=== PATIENT | male | born 1950 | race African-American/Black ===

== ENCOUNTER → 2016-05-17 | Outpatient (CLI) | payer BC, MEDICARE ==
[~2016-05-17] MED LIST: ALLP300T PO; AMLO10TA2 PO; AMLO10TA82 PO; ASP325TEC PO; ATEN25TA PO; ATOR80TA76 PO; BUDE10.2 IH; CANA100T PO; CARB15DR74 OU; DIAZIDE PO; DOXA2TAB2 PO; DXZS2T PO; FORM12CA IH; FURO-124 PO; FURO20TA4 PO; GABA-486 PO; GADOBUTROL 7.5 MMOL/7.5 ML (GADAVIST) VIAL IV ONE; GLIM2TAB PO; GLIM4TAB PO; GUAN2TAB12 PO; INSASP10V SQ; INSU100V5 SQ; LISI20TA PO; LISI40TA PO; LORA10TA7 PO; LOSA100T7 PO; LOSA50TA36 PO; MECL-106 PO; MTF500T PO; OMEP20CA12 PO; POTA-51 PO; POTA10CA43 PO; POTA10TA10 PO; POTA20TA8 PO; SIMV20TA3 PO; SIMV40TA4 PO; TRAM50TA2 PO; TRIA1TAB2 PO; ZOLP10TA PO; [UNRECOGNIZED DRUG - CODE] PO
--- OUTSIDE RECORDS SUMMARY | 2016-05-17 15:56 | XMS REPORT | Continuity of Care Document ---
Author Author [facility] Organization [facility] Address Unknown Phone Unavailable Care Team Providers Care Motor Boss Name Role Phone PCP Unavailable Source Comments Some departments are not documenting in the electronic medical record. If you do not see the information that you expected, contact Release of Information in the Health Information Management department at [phone] for further assistance in locating additional records.[facility] Active Allergies and Adverse Reactions Allergen Noted Date Severity Reactions Comments Flonase 04/04/2016 Low UNKNOWN Levaquin 04/04/2016 Low SEE COMMENTS Muscle weakness Lisinopril 04/04/2016 Low COUGH Metformin 04/04/2016 Low SEE COMMENTS Kidney failure Current Medications Prescription Sig. Disp. Refills Start End Date Status Date doxazosin (CARDURA) 4 mg Take 4 mg by mouth daily. Active tablet allopurinol (ZYLOPRIM) Take 300 mg by mouth Active 300 mg tablet daily. Take with food. aspirin 325 mg tablet Take 325 mg by mouth Active daily. Take with food. atorvastatin (LIPITOR) 80 Take 80 mg by mouth Active mg tablet daily. budesonide/formoterol Inhale 2 Puffs by mouth Active (SYMBICORT) 160/4.5 mcg into the lungs twice inhalation daily. CARBOXYMETHYLCELLULOSE Place into or around Active SODIUM (REFRESH OP) eye(s). GABAPENTIN PO Take by mouth. Active glimepiride (AMARYL) 4 mg Take 4 mg by mouth daily Active tablet with breakfast. glimepiride (AMARYL) 2 mg Take 2 mg by mouth daily Active tablet with breakfast. INSULIN ASPART (NOVOLOG Inject under the skin. Active SC) INSULIN DETEMIR (LEVEMIR Inject under the skin. Active SC) guanfacine(+) (TENEX) 2 Take by mouth. Active mg tablet loratadine 10 mg cap Take by mouth. Active omeprazole DR(+) Take 20 mg by mouth daily Active (PRILOSEC) 20 mg capsule before breakfast. losartan (COZAAR) 50 mg Take 50 mg by mouth Active tablet daily. zolpidem (AMBIEN) 10 mg Take 10 mg by mouth at Active tablet bedtime as needed for Sleep. traMADol (ULTRAM) 50 mg Take 50 mg by mouth every Active tablet 6 hours as needed for Pain. amitriptyline (ELAVIL) 10 Take 10 mg by mouth at Active mg tablet bedtime as needed. Triamcinolone Acetonide Apply topically to Active 0.05 % oint affected area. furosemide (LASIX) 20 mg Take 2 Tabs by mouth 180 Tab 2 04/04/20 Active tablet every morning. 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) Social History Tobacco Use Types Packs/Day Years Used Date Former Smoker Cigarettes 0.5 Alcohol Use Drinks/Week oz/Week Comments Yes Last Filed Vital Signs Vital Sign Reading Time Taken Blood Pressure 158/92 04/04/2016 2:52 PM PRODUCTION HONING MACHINE OPERATOR Pulse 71 04/04/2016 2:52 PM PRODUCTION HONING MACHINE OPERATOR Temperature - - Respiratory Rate - - Height 1.867 m (6' 1.5") 04/04/2016 2:50 PM PRODUCTION HONING MACHINE OPERATOR Weight 107.14 kg (236 lb 3.2 oz) 04/04/2016 2:50 PM PRODUCTION HONING MACHINE OPERATOR Body Mass Index 30.74 04/04/2016 2:50 PM PRODUCTION HONING MACHINE OPERATOR Oxygen Saturation - - Plan of Care Health Maintenance Due Date Last Done Comments Hepatitis C Screening 1950 Physical (Comprehensive) 1957 Exam Pertussis Vaccine 1961 Tetanus Vaccine 1967 Colorectal Cancer 2000 Screening Shingles Vaccine 2010 Prevnar/Pneumovax (#1) 2015 Influenza Vaccine 01/07/2016 Procedures from Last 3 Months Procedure Name Priority Date/Time Associated Diagnosis Comments AUDIOMETRY WITH Routine 04/04/2016 TYMPANOMETRY 12:00 AM PRODUCTION HONING MACHINE OPERATOR OTOACOUSTIC EMMISSIONS Routine 04/04/2016 12:00 AM PRODUCTION HONING MACHINE OPERATOR Results from Last 3 Months AUDIOMETRY WITH TYMPANOMETRY (04/04/2016)OTOACOUSTIC EMMISSIONS (04/04/2016)
--- NOTE | 2016-05-17 17:13 | Diagnostic Imaging Report ---
PROCEDURE: MR imaging of the brain with and without contrast. TECHNIQUE: Multiplanar, multisequence MR imaging of the brain was performed with and without contrast. INDICATION: Vertigo. Right hearing loss. 5 mL of Gadovist is administered intravenously. Half dose is given related to reduced GFR, with weight adjusted value of 55 obtained. FINDINGS: There is no diffusion restriction to suggest an acute infarct or other diffusion abnormality. The joe and white matter signal is generally unremarkable with minimal white matter T2 hyperintense signal seen in periventricular and small juxtacortical foci without significant mass effect or postcontrast enhancement compatible with mild chronic microvascular ischemic changes, commonly seen at the patient's age. There is no enhancing mass. There is no hydrocephalus. No extra-axial fluid collection is seen. The central vascular flow voids appear grossly unremarkable. The internal auditory canals and inner ear structures appear symmetric. The mastoid air cells demonstrate no definite abnormality. The pituitary gland is normal in size. No hypothalamic or pineal region mass. The orbits appear symmetric. Mild mucosal thickening along the middle and inferior turbinates and mild nasal septal deviation to the right is seen. IMPRESSION: No significant abnormality. Dictated by: Dictated on workstation # [id number]
== END ==
LOC: RAD 15:52
PROVIDERS: ATTEND Internal Medicine
DX: R42 Dizziness and giddiness (principal); H93.11 Tinnitus, right ear
CPT/HCPCS: 70553

== ENCOUNTER → 2016-05-23 | Outpatient (CLI) | payer BC, MEDICARE ==
[~2016-05-23] MED LIST changes: -GADOBUTROL 7.5 MMOL/7.5 ML (GADAVIST) VIAL IV ONE
--- OUTSIDE RECORDS SUMMARY | 2016-05-23 11:03 | XMS REPORT | Continuity of Care Document ---
Author Author [facility] Organization [facility] Address Unknown Phone Unavailable Care Team Providers Care Quality Control Lab Tech Name Role Phone PCP Unavailable Source Comments Some departments are not documenting in the electronic medical record. If you do not see the information that you expected, contact Release of Information in the Health Information Management department at [phone] for further assistance in locating additional records.[facility] Active Allergies and Adverse Reactions Allergen [...] Taken Blood Pressure 158/92 04/04/2016 2:52 PM HIGH SCHOOL MATH TEACHER Pulse 71 04/04/2016 2:52 PM HIGH SCHOOL MATH TEACHER Temperature - - Respiratory Rate - - Height 1.867 m (6' 1.5") 04/04/2016 2:50 PM HIGH SCHOOL MATH TEACHER Weight 107.14 kg (236 lb 3.2 oz) 04/04/2016 2:50 PM HIGH SCHOOL MATH TEACHER Body Mass Index 30.74 04/04/2016 2:50 PM HIGH SCHOOL MATH TEACHER Oxygen Saturation - - Plan of Care Health Maintenance Due Date Last Done Comments Hepatitis C Screening 1950 Physical (Comprehensive) 1957 Exam Pertussis Vaccine 1961 Tetanus Vaccine 1967 Colorectal Cancer 2000 Screening Shingles Vaccine 2010 Prevnar/Pneumovax (#1) 2015 Influenza Vaccine 01/07/2016 Procedures from Last 3 Months Procedure Name Priority Date/Time Associated Diagnosis Comments AUDIOMETRY WITH Routine 04/04/2016 TYMPANOMETRY 12:00 AM HIGH SCHOOL MATH TEACHER OTOACOUSTIC EMMISSIONS Routine 04/04/2016 12:00 AM HIGH SCHOOL MATH TEACHER Results from Last 3 Months AUDIOMETRY WITH TYMPANOMETRY (04/04/2016)OTOACOUSTIC EMMISSIONS (04/04/2016)
[2016-05-23 11:48] LABS: ALBUMIN 3.6 G/DL (3.2-4.5); BILIRUBIN,TOTAL 0.8 MG/DL (0.1-1.0); CALCIUM 8.9 MG/DL (8.5-10.1); CREATININE SERUM 1.8 MG/DL (0.60-1.30); MAGNESIUM 1.5 MG/DL (1.8-2.4); POTASSIUM 3.9 MMOL/L (3.6-5.0); TOTAL PROTEIN 6.8 G/DL (6.4-8.2)
[2016-05-23 12:08] LABS: THYROID STIMULATING HORMONE 0.49 UIU/ML (0.35-4.94)
== END ==
LOC: LAB 10:59
PROVIDERS: ATTEND Nurse Practitioner Family
DX: R53.83 Other fatigue (principal); I25.10 Atherosclerotic heart disease of native coronary artery without angina pectoris; I10 Essential (primary) hypertension; G47.33 Obstructive sleep apnea (adult) (pediatric); N18.3 Chronic kidney disease, stage 3 (moderate)
CPT/HCPCS: 36415; 80053; 83735; 84443

== ENCOUNTER → 2016-05-31 | Outpatient (CLI) | payer BC, MEDICARE ==
--- OUTSIDE RECORDS SUMMARY | 2016-05-31 08:30 | XMS REPORT | Continuity of Care Document ---
Author Author [facility] Organization [facility] Address Unknown Phone Unavailable Care Team Providers Care Grants Administrator Name Role Phone PCP Unavailable Source Comments Some departments are not documenting in the electronic medical record. If you do not see the information that you expected, contact Release of Information in the Health Information Management department at [phone] for further assistance in locating additional records.[facility] Active Allergies and Adverse Reactions Allergen [...] Taken Blood Pressure 158/92 04/04/2016 2:52 PM HUB INVENTORY SPECIALIST Pulse 71 04/04/2016 2:52 PM HUB INVENTORY SPECIALIST Temperature - - Respiratory Rate - - Height 1.867 m (6' 1.5") 04/04/2016 2:50 PM HUB INVENTORY SPECIALIST Weight 107.14 kg (236 lb 3.2 oz) 04/04/2016 2:50 PM HUB INVENTORY SPECIALIST Body Mass Index 30.74 04/04/2016 2:50 PM HUB INVENTORY SPECIALIST Oxygen Saturation - - Plan of Care Health Maintenance Due Date Last Done Comments Hepatitis C Screening 1950 Physical (Comprehensive) 1957 Exam Pertussis Vaccine 1961 Tetanus Vaccine 1967 Colorectal Cancer 2000 Screening Shingles Vaccine 2010 Prevnar/Pneumovax (#1) 2015 Influenza Vaccine 01/07/2016 Procedures from Last 3 Months Procedure Name Priority Date/Time Associated Diagnosis Comments AUDIOMETRY WITH Routine 04/04/2016 TYMPANOMETRY 12:00 AM HUB INVENTORY SPECIALIST OTOACOUSTIC EMMISSIONS Routine 04/04/2016 12:00 AM HUB INVENTORY SPECIALIST Results from Last 3 Months AUDIOMETRY WITH TYMPANOMETRY (04/04/2016)OTOACOUSTIC EMMISSIONS (04/04/2016)
[2016-05-31 08:58] LABS: CALCIUM 8.8 MG/DL (8.5-10.1); CREATININE SERUM 1.94 MG/DL (0.60-1.30); MAGNESIUM 1.7 MG/DL (1.8-2.4)
== END ==
LOC: LAB 08:27
PROVIDERS: ATTEND Nurse Practitioner Family
DX: E83.42 Hypomagnesemia (principal)
CPT/HCPCS: 36415; 80048; 83735

== ENCOUNTER → 2016-06-27 | Outpatient (CLI) | payer BC, MEDICARE ==
--- OUTSIDE RECORDS SUMMARY | 2016-06-27 10:17 | XMS REPORT | Continuity of Care Document ---
Author Author [facility] Organization [facility] Address Unknown Phone Unavailable Care Team Providers Care Center Consultant Name Role Phone PCP Unavailable Source Comments Some departments are not documenting in the electronic medical record. If you do not see the information that you expected, contact Release of Information in the Health Information Management department at [phone] for further assistance in locating additional records.[facility] Active Allergies and Adverse Reactions Allergen Noted [...] Recent Encounters Date Type Specialty Providers Description 06/10/2016 Telephone Otolaryngology Benjamin Giron MD Results - MRI results 06/03/2016 Ancillary Radiology Outpatient, Radiologist Diagnosis unknown Orders (Primary Dx) 05/17/2016 Hospital Radiology Encounter 04/04/2016 Office Visit Otolaryngology Benjamin Giron MD Meniere disease, right [H81.01] (Primary Dx) 04/04/2016 Clinical Otolaryngology Anabel Queen AUD 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 (Primary Dx) Social History Tobacco Use Types Packs/Day Years Used Date Former Smoker Cigarettes 0.5 Alcohol Use Drinks/Week oz/Week Comments Yes Last Filed Vital Signs Vital Sign Reading Time Taken Blood Pressure 158/92 04/04/2016 2:52 PM DIAMOND SORTER Pulse 71 04/04/2016 2:52 PM DIAMOND SORTER Temperature - - Respiratory Rate - - Height 1.867 m (6' 1.5") 04/04/2016 2:50 PM DIAMOND SORTER Weight 107.14 kg (236 lb 3.2 oz) 04/04/2016 2:50 PM DIAMOND SORTER Body Mass Index 30.74 04/04/2016 2:50 PM DIAMOND SORTER Oxygen Saturation - - Plan of Care Health Maintenance Due Date Last Done Comments Hepatitis C Screening 1950 Physical (Comprehensive) 1957 Exam Pertussis Vaccine 1961 Tetanus Vaccine 1967 Colorectal Cancer 2000 Screening Shingles Vaccine 2010 Prevnar/Pneumovax (#1) 2015 Influenza Vaccine 01/07/2016 Procedures from Last 3 Months Procedure Name Priority Date/Time Associated Diagnosis Comments AUDIOMETRY WITH Routine 04/04/2016 TYMPANOMETRY 12:00 AM DIAMOND SORTER OTOACOUSTIC EMMISSIONS Routine 04/04/2016 12:00 AM DIAMOND SORTER Results from Last 3 Months MRI HEAD EXTERNAL IMAGING (05/17/2016) Narrative This order has been auto finalized and does not contain a result. AUDIOMETRY WITH TYMPANOMETRY (04/04/2016)OTOACOUSTIC EMMISSIONS (04/04/2016)
[2016-06-27 10:48] LABS: CALCIUM 9.1 MG/DL (8.5-10.1); CREATININE SERUM 2.06 MG/DL (0.60-1.30); MAGNESIUM 1.6 MG/DL (1.8-2.4)
== END ==
LOC: LAB 10:13
PROVIDERS: ATTEND Nurse Practitioner Family
DX: I25.10 Atherosclerotic heart disease of native coronary artery without angina pectoris (principal); I12.9 Hypertensive chronic kidney disease with stage 1 through stage 4 chronic kidney disease, or unspecified chronic kidney disease; N18.3 Chronic kidney disease, stage 3 (moderate); G47.33 Obstructive sleep apnea (adult) (pediatric)
CPT/HCPCS: 36415; 80048; 83735

== ENCOUNTER 2016-10-03 14:49 | Emergency (ER) | payer BC, MEDICARE ==
[~2016-10-03] VITALS: Ht 185.4 cm; Wt 106.6 kg
--- NOTE | 2016-10-03 18:03 | Diagnostic Imaging Report ---
INDICATION: Right great toe pain started a few weeks ago and has gotten worse. COMPARISON STUDY: None. FINDINGS: Three views of the right great toe demonstrate normal ossification. No fracture, dislocation, or evidence of osteomyelitis is present. Arteriosclerosis is present. IMPRESSION: Arteriosclerosis is present with no acute findings. Dictated by: Dictated on workstation # [id number]
[2016-10-03] MEDS ORDERED: COLCHICINE 0.6 MG (COLCRYS) TABLET PO ONE (18:15)
--- NOTE | 2016-10-03 18:20 | ED Lower Extremity ---
General Chief Complaint: Lower Extremity Stated Complaint: R FOOT BIG TOE PAIN Nursing Triage Note: PT CO OF R GREAT TOE PAIN, STARTED A FEW WEEKS AGO AND HAS GOTTEN WORSE. PT RATES PAIN 12/15 Nursing Sepsis Screen: No Definite Risk Source: patient Exam Limitations: no limitations History of Present Illness Time seen by provider: 17:25 Initial Comments This 66-year-old gentleman presents to the emergency room with pain and numbness in the right great toe. He does have neuropathy and gout but states this presentation is different than problems he has had with either of those diagnoses in the past. He is on allopurinol for gout prevention and does take medications for neuropathy. He can identify no injury. He has no signs or symptoms of infection. Allergies and Home Medications Allergies Coded Allergies: levofloxacin (Verified Allergy, Unknown, 04/20/15) metformin (Verified Allergy, Unknown, 04/20/15) Home Medications Allopurinol 300 Mg Tab, 300 MG PO DAILY, (Reported) Aspirin 325 Mg Tabec, 325 MG PO HS, (Reported) Atorvastatin Calcium 80 Mg Tablet, 80 MG PO HS, (Reported) Budesonide/Formoterol Fumarate 10.2 Gm Hfa.aer.ad, 2 PUFF IH HS, (Reported) Carboxymethylcellulose Sodium 15 Ml Drops, 1 DROP OU QID PRN for DRY EYES, ( Reported) Doxazosin Mesylate 2 Mg Tablet, 2 MG PO BID PRN for BLOOD PRESSURE for 30 Days, Ref 0 Prescribed by: KAYLA OSEI on 07/16/15 1338 Furosemide 20 Mg Tablet, 20 MG PO DAILY, (Reported) Gabapentin 100 Mg Capsule, 100 MG PO HS, (Reported) Glimepiride 2 Mg Tablet, 4 MG PO EVERY EVENING, (Reported) TAKES 2 (2 MG) TABLETS Glimepiride 2 Mg Tablet, 2 MG PO DAILY, (Reported) Guanfacine Hcl 2 Mg Tablet, 4 MG PO HS, (Reported) TAKES 2 (2 MG) TABLETS Insulin Aspart 10 Unit/0.1 Ml Susp, 2-6 UNITS SQ UD, (Reported) PER (A) SLIDING SCALE Insulin Detemir 100 U/Ml Vial, 35 UNITS SQ BID, (Reported) Lisinopril 40 Mg Tablet, 40 MG PO DAILY, (Reported) Loratadine 10 Mg Tablet, 10 MG PO DAILY, (Reported) Meclizine HCl 25 Mg Tablet, 25 MG PO BID PRN for DIZZINESS, #20 Prescribed by: LINDA PEÑA on 11/05/15 5325 Omeprazole 20 Mg Capsule.dr, 20 MG PO BID, (Reported) Tramadol Hcl 50 Mg Tablet, 25 MG PO HS PRN for PAIN, (Reported) TAKES 1/2 OF A (50 MG) TABLET Zolpidem Tartrate 10 Mg Tablet, 10 MG PO HS PRN for SLEEP, (Reported) Constitutional: no symptoms reported EENTM: no symptoms reported Respiratory: no symptoms reported Cardiovascular: no symptoms reported Gastrointestinal: no symptoms reported Genitourinary: no symptoms reported Musculoskeletal: see HPI Skin: no symptoms reported Psychiatric/Neurological: See HPI Past Owjxicu-Vnbxva-Zlabdr Hx Patient Social History Alcohol Use: Denies Use Recreational Drug Use: No Smoking Status: Never a Smoker Former Smoker/When Quit: Oct 15, 1975 Recent Foreign Travel: No Contact w/Someone Who Travel: No Recent Infectious Disease Expo: No Recent Hopitalizations: No Immunizations Up To Date Tetanus Booster (TDap): Less than 5yrs Date of Pneumonia Vaccine: Feb 20, 2015 Date of Influenza Vaccine: Feb 20, 2015 Seasonal Allergies Seasonal Allergies: Yes Surgeries HX Surgeries: Yes (LEFT KNEE SCOPE X 2; RIGHT CARPAL TUNNEL;HERNIA REPAIR; HEART CATHX3) Surgeries: Abdominal, Cardiac, Coronary Stent, Orthopedic Respiratory Hx Respiratory Disorders: Yes Respiratory Disorders: Asthma Cardiovascular Hx Cardiac Disorders: Yes (STENT X1 , PR AT 41) Cardiac Disorders: Chronic Edema/Swelling, Coronary Artery Disease, Heart Attack, High Cholesterol, Hypertension Neurological Hx Neurological Disorders: Yes Neurological Disorders: Neuropathy Reproductive System Hx Reproductive Disorders: No Sexually Transmitted Disease: No HIV/AIDS: No Genitourinary Hx Genitourinary Disorders: Yes (STAGE 1 KIDNEY FAILURE) Genitourinary Disorders: Renal Failure Gastrointestinal Hx Gastrointestinal Disorders: Yes (hep A) Gastrointestinal Disorders: Gastroesophageal Reflux, Hepatitis Musculoskeletal Hx Musculoskeletal Disorders: Yes Musculoskeletal Disorders: Arthritis, Back Injury, Gout Endocrine Hx Endocrine Disorders: Yes Endocrine Disorders: Diabetes, Insulin dep HEENT HX ENT Disorders: Yes Loss of Vision: Denies Hearing Impairment: Hearing Aide Right Cancer Hx Cancer: No Psychosocial Hx Psychiatric Problems: No Integumentary HX Skin/Integumentary Disorder: No Blood Transfusions Hx Blood Disorders: No Adverse Reaction to a Blood Tr: No Family Medical History Significant Family History: No Pertinent Family Hx Family Medial History: Patient reports no known family medical history. Physical Exam Vital Signs Vital Sign - Last 12Hours 10/03/16 16:25 Temp 98.1 Pulse 96 Resp 18 B/P (MAP) 137/96 Pulse Ox 99 Capillary Refill : Less Than 3 Seconds General Appearance: WD/WN, no apparent distress HEENT: PERRL/EOMI, normal ENT inspection Cardiovascular: regular rate, rhythm, no edema, no murmur Respiratory: lungs clear, normal breath sounds, no respiratory distress Ankles: bilateral ankle non-tender, bilateral ankle normal inspection, bilateral ankle normal range of motion, bilateral ankle no evidence of injury Feet: left foot non-tender, bilateral foot normal inspection, bilateral foot normal range of motion, bilateral foot no evidence of injury, right foot other ( mild tenderness to the right proximal great toe without any evidence of inflammatory changes or swelling. Range of motion pain in the proximal toe joint) Neurologic/Tendon: normal sensation, normal motor functions, normal tendon functions Neurologic/Psychiatric: general machinist II-XII nml as tested, no motor/sensory deficits, alert, normal mood/affect, oriented x 3 Skin: normal color, warm/dry Progress/Results/Core Measures Results/Orders My Orders Orders - BRITTANY JACKSON MD Toe(S) (10/03/16 17:37) Colchicine Tablet (Colcrys Tablet) (10/03/16 18:15) Vital Signs/I&O Vital Sign - Last 12Hours 10/03/16 10/03/16 16:25 18:36 Temp 98.1 Pulse 96 60 Resp 18 14 B/P (MAP) 137/96 Pulse Ox 99 98 Blood Pressure Mean: 110 Progress Note : Progress Note x-ray was negative. Exam was unimpressive as there was normal sensation, capillary refill, pedal pulse, and range of motion. Low-grade gouty inflammation was considered. Patient was treated with colchicine and advised to follow a gout diet. See discharge instructions. Diagnostic Imaging Diagonstic Imaging: Xray Plain Films/CT/US/NM/MRI: other (right foot) Comments x-ray viewed by me and report reviewed. See report below: NAME: DOMINICK ARELLANO [facility] REC#: [id number] PT STATUS: REG ER : 1950 PHYSICIAN: BRITTANY JACKSON MD ADMIT DATE: 10/03/16/ER Signed Date of Exam: 10/03/16 TOE(S) INDICATION: Right great toe pain started a few weeks ago and has gotten worse. COMPARISON STUDY: None. FINDINGS: Three views of the right great toe demonstrate normal ossification. No fracture, dislocation, or evidence of osteomyelitis is present. Arteriosclerosis is present. IMPRESSION: Arteriosclerosis is present with no acute findings. Dictated by: Dictated on workstation # [id number] Dict: 10/03/169 Trans: 10/03/161805 Interpreted by: PUNEET NULL MD Electronically signed by: PUNEET NULL MD 10/03/161805 Departure Impression Impression: Primary Impression: Pain of right great toe Additional Impression: History of gout Disposition: HOME, SELF-CARE Condition: Improved Departure-Patient Inst. Decision time for Depature: 18:00 Referrals: ZULEMA FINN MD (PCP/Family) Primary Care Physician Patient Instructions: Gout (DC) Add. Discharge Instructions: Drink plenty of clear liquids. Follow a gout diet. If the dose of colchicine given in the ER does not improve your pain, please contact your doctor tomorrow. Your pain may be related to a manifestation of neuropathy. In the meantime, please continue to use Tylenol (acetaminophen) up to 1000 mg every 6 hours as needed. Add Ultram (Tramadol) for pain not controlled by Tylenol. All discharge instructions reviewed with patient and/or family. Voiced understanding. BRITTANY JACKSON MD October 03, 2016 18:20
[2016-10-03 18:36] VITALS: BP 125/83
== END 2016-10-03 18:38 | disposition home or self-care (01) ==
LOC: EDUNIT# 14:49 → ER 14:51
DX: M79.674 Pain in right toe(s) (principal); I10 Essential (primary) hypertension; E11.9 Type 2 diabetes mellitus without complications; I25.2 Old myocardial infarction; Z79.82 Long term (current) use of aspirin; Z79.899 Other long term (current) drug therapy; Z79.4 Long term (current) use of insulin; Z79.84 Long term (current) use of oral hypoglycemic drugs
CPT/HCPCS: 73660; 99283

== ENCOUNTER → 2016-12-02 | Outpatient (CLI) | payer BC, MEDICARE ==
[2016-12-02 09:43] LABS: CALCIUM 9.2 MG/DL (8.5-10.1); CREATININE SERUM 2.29 MG/DL (0.60-1.30)
== END ==
LOC: LAB 09:06
PROVIDERS: ATTEND Internal Medicine
DX: E11.9 Type 2 diabetes mellitus without complications (principal); I10 Essential (primary) hypertension
CPT/HCPCS: 36415; 80048; 83036

== ENCOUNTER 2017-01-12 08:40 | Emergency (ER) | payer OTHER, BC, MEDICARE ==
[~2017-01-12] VITALS: Ht 185.4 cm; Wt 106.6 kg
--- OUTSIDE RECORDS SUMMARY | 2017-01-12 08:47 | XMS REPORT | Clinical Summary ---
Author Author [facility] Organization [facility] Address Unknown Phone Unavailable Care Team Providers Care Chronic Specialist Name Role Phone PCP Unavailable Source Comments Some departments are not documenting in the electronic medical record. If you do not see the information that you expected, contact Release of Information in the Health Information Management department at [phone] for further assistance in locating additional records.[facility] Allergies Active Allergy Reactions Severity Noted Date Comments Fluticasone UNKNOWN Low 04/04/2016 Levofloxacin SEE COMMENTS Low 04/04/2016 Muscle weakness Lisinopril COUGH Low 04/04/2016 Metformin SEE COMMENTS Low 04/04/2016 Kidney failure Current Medications Prescription Sig. Disp. [...] by mouth 180 Tab 2 04/04/20 Active tabletIndications: every morning. 16 Meniere disease, right Active Problems Problem Noted Date Meniere disease 04/04/2016 Family History Medical History Relation Name Comments Diabetes Mother Heart Attack Mother Hypertension Mother Relation Name Status Comments Father Mother Social History Tobacco Use Types Packs/Day Years Used Date Former Smoker Cigarettes 0.5 Alcohol Use Drinks/Week oz/Week Comments Yes Sex Assigned at Date Recorded Not on file Last Filed Vital Signs Vital Sign Reading Time Taken Blood Pressure 158/92 04/04/2016 2:52 PM MINIATURE TRAIN DRIVER Pulse 71 04/04/2016 2:52 PM MINIATURE TRAIN DRIVER Temperature - - Respiratory Rate - - Oxygen Saturation - - Inhaled Oxygen - - Concentration Weight 107.1 kg (236 lb 3.2 oz) 04/04/2016 2:50 PM MINIATURE TRAIN DRIVER Height 186.7 cm (6' 1.5") 04/04/2016 2:50 PM MINIATURE TRAIN DRIVER Body Mass Index 30.74 04/04/2016 2:50 PM MINIATURE TRAIN DRIVER Plan of Treatment Health Maintenance Due Date Last Done Comments HEPATITIS C SCREENING 1950 PHYSICAL (COMPREHENSIVE) 1957 EXAM PERTUSSIS VACCINE 1961 TETANUS VACCINE 1967 COLORECTAL CANCER 2000 SCREENING SHINGLES VACCINE 2010 ABDOMINAL AORTIC ANEURYSM 2015 SCREENING PREVNAR/PNEUMOVAX (#1) 2015 INFLUENZA VACCINE 01/06/2017 Results Not on filefrom Last 3 Months
--- OUTSIDE RECORDS SUMMARY | 2017-01-12 08:49 | XMS REPORT ---
Author Author KEVIN ALFONSO 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 Role Phone SEBENJAMIN HAASYL Unavailable PROBLEMS Type Condition ICD9-CM Code [id number] Code Onset Dates Condition Status SNOMED Code Problem Rash and other nonspecific skin eruption 782.1 Active 909801379 Problem Unspecified disorder of kidney and ureter 593.9 Active 532098304 Problem Pain in joint, lower leg 719.46 Active 150013140 Problem Diabetic autonomic neuropathy associated with type 2 diabetes mellitus E11.43 Active 677587243 Problem Dermatophytosis of the body 110.5 Active 104488400 Problem Gout, unspecified 274.9 Active 86125167 Problem Essential hypertension, benign 401.1 Active 0494890 Problem Diabetes mellitus without mention of complication, type II or unspecified type, not stated as uncontrolled 250.00 Active 666441398 Problem Other and unspecified hyperlipidemia 272.4 Active 33534855 ALLERGIES Substance Reaction Event Type Date Status Metformin kidney Drug Allergy May, Active SOCIAL HISTORY No smoking Hx information available PLAN OF CARE Activity Details Follow Up prn Reason: VITAL SIGNS Height 73 in 2016-05-25 Weight 244 lbs 2016-05-25 Temperature 98 degrees Fahrenheit 2016-05-25 Heart Rate 80 bpm 2016-05-25 Respiratory Rate 16 2016-05-25 BMI 32.19 kg/m2 2016-05-25 Blood pressure systolic 128 mmHg 2016-05-25 Blood pressure diastolic 74 mmHg 2016-05-25 MEDICATIONS Medication Instructions Dosage Frequency Start Date End Date Duration Status Atenolol 25 mg take 1 tablet (25 mg) by oral route once daily Jan, Active Lasix 20 MG Orally three times per week 1 tablet Active Omeprazole 20 mg take 2 capsules by Oral route before a meal 1 time per day in am May, Active Zithromax Z-Max 250 MG Orally Once a day 2 tablets on the first day, then 1 tablet daily for 4 days 24h 5 day(s) Active amlodipine 10 mg take 1 tablet (10 mg) by oral route once daily May Active Simvastatin 40 mg take 0.5 tablet by Oral route 1 time per day in the evening May, Active NovoLog Flexpen 100 unit/mL inject 10 Units by Subcutaneous route before meals 3 times per day Jul, Active tramadol 50 mg take 1 tablet (50 mg) by oral route every 6 hours as needed PRN Jul, Active Aspirin 325 mg take 1 tablet (325 mg) by oral route once daily May, Active Gabapentin 100 MG TAKE THREE CAPSULES BY MOUTH THREE TIMES DAILY NEEDED 30 Active Glimepiride 4 MG TAKE ONE-HALF TABLET BY MOUTH IN THE MORNING AND ONE TABLET IN THE EVENING Active RESULTS No Results PROCEDURES Procedure Date Ordered Related Diagnosis Body Site [facility] VISIT ESTABLISHED PATIENT May 25, 2016 Office Visit, Est Pt., Level 4 May 25, 2016 IMMUNIZATIONS No Known Immunizations
--- NOTE | 2017-01-12 09:43 | ED Lower Extremity ---
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 He for the next several days felt some swelling in his left ankle and has been using extra strength Tylenol with marginal benefit. Last night he felt a knot on the back of his Achilles tendon. He denies any shortness of breath, nausea, hemoptysis, calf pain, redness swelling or knottiness in his calves or history of blood clots. He takes aspirin daily for history of a stent placed [address] Montilla. He has been consistent with taking the rest of his medications as well. He's never had an injury to his ankle before. He is still able to walk and stand on that foot albeit very tender to the Achilles tendon. Allergies and Home Medications Allergies Coded Allergies: levofloxacin (Verified Allergy, Unknown, 04/20/15) metformin (Verified Allergy, Unknown, 04/20/15) Home Medications Allopurinol 300 Mg Tab, 300 MG PO DAILY, (Reported) Aspirin 325 Mg Tabec, 325 MG PO HS, (Reported) Atorvastatin Calcium 80 Mg Tablet, 80 MG PO HS, (Reported) Budesonide/Formoterol Fumarate 10.2 Gm Hfa.aer.ad, 2 PUFF IH HS, (Reported) Carboxymethylcellulose Sodium 15 Ml Drops, 1 DROP OU QID PRN for DRY EYES, ( Reported) Doxazosin Mesylate 2 Mg Tablet, 2 MG PO BID PRN for BLOOD PRESSURE for 30 Days, Ref 0 Prescribed by: KAYLA OSEI on 07/16/15 1338 Furosemide 20 Mg Tablet, 20 MG PO DAILY, (Reported) Gabapentin 100 Mg Capsule, 100 MG PO HS, (Reported) Glimepiride 2 Mg Tablet, 4 MG PO EVERY EVENING, (Reported) TAKES 2 (2 MG) TABLETS Glimepiride 2 Mg Tablet, 2 MG PO DAILY, (Reported) Guanfacine Hcl 2 Mg Tablet, 4 MG PO HS, (Reported) TAKES 2 (2 MG) TABLETS Hydrocodone/Acetaminophen 1 Each Tablet, 1 EACH PO Q6H PRN for BREAKTHROUGH PAIN , #15 Ref 0 Prescribed by: GENESIS OLIVAREZ on 01/12/17 0944 Insulin Aspart 10 Unit/0.1 Ml Susp, 2-6 UNITS SQ UD, (Reported) PER (A) SLIDING SCALE Insulin Detemir 100 U/Ml Vial, 35 UNITS SQ BID, (Reported) Lisinopril 40 Mg Tablet, 40 MG PO DAILY, (Reported) Loratadine 10 Mg Tablet, 10 MG PO DAILY, (Reported) Meclizine HCl 25 Mg Tablet, 25 MG PO BID PRN for DIZZINESS, #20 Prescribed by: LINDA PEÑA on 11/05/15 1355 Omeprazole 20 Mg Capsule.dr, 20 MG PO BID, (Reported) Tramadol Hcl 50 Mg Tablet, 25 MG PO HS PRN for PAIN, (Reported) TAKES 1/2 OF A (50 MG) TABLET Zolpidem Tartrate 10 Mg Tablet, 10 MG PO HS PRN for SLEEP, (Reported) Constitutional: No chills, No diaphoresis, No fever, No malaise Respiratory: No cough, No short of breath Cardiovascular: No chest pain, No palpitations Gastrointestinal: No constipation, No nausea Genitourinary: No discharge, No dysuria Musculoskeletal: see HPI, No back pain, joint pain Skin: see HPI, No pruritus, No rash Psychiatric/Neurological: Denies Numbness, Denies Paresthesia Past Wdfsilt-Iarfdm-Wtwjfm Hx Patient Social History Alcohol Use: Occasionally Uses Recreational Drug Use: No Smoking Status: Never a Smoker Recent Foreign Travel: No Contact w/Someone Who Travel: No Recent Infectious Disease Expo: No Recent Hopitalizations: No Immunizations Up To Date Tetanus Booster (TDap): Less than 5yrs Date of Pneumonia Vaccine: Feb 20, 2015 Date of Influenza Vaccine: Feb 20, 2015 Seasonal Allergies Seasonal Allergies: Yes Surgeries History of Surgeries: Yes (LEFT KNEE SCOPE X 2; RIGHT CARPAL TUNNEL;HERNIA REPAIR; HEART CATHX3) Surgeries: Abdominal, Cardiac, Coronary Stent, Orthopedic Respiratory History of Respiratory Disorde: Yes Respiratory Disorders: Asthma Currently Using CPAP: No Currently Using BIPAP: No Cardiovascular History of Cardiac Disorders: Yes (STENT X1 , [place] AT 41) Cardiac Disorders: Chronic Edema/Swelling, Coronary Artery Disease, Heart Attack, High Cholesterol, Hypertension Neurological History of Neurological Disord: No Neurological Disorders: Neuropathy Reproductive System Hx Reproductive Disorders: No Sexually Transmitted Disease: No HIV/AIDS: No Genitourinary Genitourinary Disorders: Renal Failure Gastrointestinal History of Gastrointestinal Di: Yes (hep A) Gastrointestinal Disorders: Gastroesophageal Reflux, Hepatitis Musculoskeletal History of Musculoskeletal Dis: Yes Musculoskeletal Disorders: Arthritis, Back Injury, Gout Endocrine History of Endocrine Disorders: Yes Endocrine Disorders: Diabetes, Insulin dep HEENT Loss of Vision: Denies Hearing Impairment: Hearing Aide Right Cancer History of Cancer: No Psychosocial History of Psychiatric Problem: No Integumentary History of Skin or Integumenta: No Blood Transfusions History of Blood Disorders: No Adverse Reaction to a Blood Tr: No Family Medical History Significant Family History: No Pertinent Family Hx Family Medial History: Patient reports no known family medical history. Physical Exam Vital Signs Vital Sign - Last 12Hours 01/12/17 01/12/17 09:10 10:29 Temp 97.0 Pulse 49 Resp 18 B/P (MAP) 129/66 Pulse Ox 98 O2 Delivery Room Air Capillary Refill : Less Than 3 Seconds General Appearance: WD/WN, mild distress Cardiovascular: normal peripheral pulses, regular rate, rhythm Respiratory: chest non-tender, lungs clear Ankles: left ankle other (Hematoma 3 cm above the calcaneus on the calcaneal tendon with tenderness to direct palpation of the tendon and less so to the subcutaneous calcaneal tendon bursa. Prone calf Squeeze test does cause dorsiflexion.) Feet: bilateral foot non-tender, bilateral foot normal inspection, bilateral foot normal range of motion, bilateral foot no evidence of injury Neurologic/Tendon: normal sensation, normal motor functions, normal tendon functions, responds to pain Neurologic/Psychiatric: no motor/sensory deficits, alert, oriented x 3 Skin: normal color, warm/dry, other (1 x 2 cm hematoma on the posterior calcaneal tendon approximately 2-3 cm above the calcaneus) Progress/Results/Core Measures Results/Orders Vital Signs/I&O Vital Sign - Last 12Hours 01/12/17 01/12/17 09:10 10:29 Temp 97.0 Pulse 49 49 Resp 18 18 B/P (MAP) 129/66 Pulse Ox 98 98 O2 Delivery Room Air Blood Pressure Mean: 87 Progress Note : Time: 09:40 Progress Note Subtotal Achilles tendon tear so we will give him instructions how to tape his heel as well as do that here in the ER. Ice and Tylenol and hydrocodone and rest and elevation. NSAIDs are not a good option considering his stent and antiplatelet usage. He can follow-up with his primary care physician next week if he needs physical therapy. The bursa itself is mildly tender but the tendon is exquisitely tender and his positive calf squeeze test indicates he does still have a connection between his calf muscle group and the calcaneus. Departure Impression Impression: Primary Impression: Achilles tendon tear Qualified Codes: S86.012A - Strain of left Achilles tendon, initial encounter Disposition: HOME, SELF-CARE Condition: Stable Departure-Patient Inst. Decision time for Depature: 09:41 Referrals: ZULEMA FERREIRA MD (PCP/Family) Primary Care Physician Patient Instructions: Achilles Tendon Rupture (DC) Add. Discharge Instructions: Apply ice for 20 minutes directly over the Achilles tendon every 4-6 hours as needed for pain. You can also take 1000 mg of Tylenol every 8 hours. If this does not control your pain you should elevate the ankle above the level of your heart and wear the taping as directed. He may also use the hydrocodone however this can cause constipation as well as drowsiness so be careful and operating a vehicle or heavy machinery. If you have constipation I recommend a capful of MiraLAX in your 8 ounce beverage of choice at least daily. Plan to follow up with Dr. Ferreira next week if you're not seeing some improvement for further evaluation and management as well as possible referral to physical therapy. If you become unable to walk or you have a popping sensation or severe pain in that left Achilles tendon then you should represent to the ER. All discharge instructions reviewed with patient and/or family. Voiced understanding. Scripts Hydrocodone/Acetaminophen (Hydrocodon -Acetaminophen 5-325) 1 Each Tablet 1 EACH PO Q6H Y for BREAKTHROUGH PAIN, #15 TAB 0 Refills Prov: GENESIS OLIVAREZ 01/12/17 Work/School Note: Work Release Form Date Seen in the Emergency Department: Jan 12, 2017 Return to Work: Jan 12, 2017 Restrictions: Need Release from Doctor Other Restrictions Listed Below: Elevate ankle above heart. Avoid stairs and excessive walking. Copy Copies To 1: ZULEMA FERREIRA MD, TITUS J Jan 12, 2017 09:43
[2017-01-12] MEDS ORDERED: HYDR-3812 PO (09:44)
[2017-01-12 10:29] VITALS: BP 166/96
== END 2017-01-12 10:31 | disposition home or self-care (01) ==
LOC: EDUNIT# 08:40 → ER 08:42
DX: S86.012A Strain of left Achilles tendon, initial encounter (principal); K21.9 Gastro-esophageal reflux disease without esophagitis; M10.9 Gout, unspecified; E11.40 Type 2 diabetes mellitus with diabetic neuropathy, unspecified; I25.10 Atherosclerotic heart disease of native coronary artery without angina pectoris; I25.2 Old myocardial infarction; E78.00 Pure hypercholesterolemia, unspecified; I10 Essential (primary) hypertension; Z97.4 Presence of external hearing-aid; Z95.5 Presence of coronary angioplasty implant and graft; Z79.4 Long term (current) use of insulin; Z79.82 Long term (current) use of aspirin; Z86.2 Personal history of diseases of the blood and blood-forming organs and certain disorders involving the immune mechanism; Z87.19 Personal history of other diseases of the digestive system
CPT/HCPCS: 99283

== ENCOUNTER → 2017-02-20 | Outpatient (CLI) | payer BC, MEDICARE ==
[~2017-02-20] MED LIST changes: +HYDR-3812 PO
--- NOTE | 2017-02-20 12:32 | Diagnostic Imaging Report ---
PROCEDURE: CT urinary tract, rule out kidney stone. TECHNIQUE: Multiple contiguous axial images were obtained through the abdomen and pelvis without the use of intravenous contrast. INDICATION: Left-sided pain. FINDINGS: The lung bases nonacute. No radiopaque gallstone. The liver shows no focal abnormality. Spleen unremarkable. There is no adrenal mass. The unopacified pancreas is unremarkable. There are multiple right greater than left bilateral cortical and exophytic renal low density nodules presumed cystic although their evaluation limited by the absence of contrast. No opaque kidney stone and there is no hydronephrosis. The unopacified urinary bladder unremarkable. Incidental pelvic phleboliths noted. Some mild superficial induration of the subcutaneous fat at the midline abdomen at and below level of the umbilicus. No abdominal wall fluid collection. There is no appendicitis or diverticulitis. There is no bowel, biliary or urinary tract obstruction. No ascites, abscess, hematoma or other fluid collection. No pneumatosis or free gas. IMPRESSION: No opaque stone. No hydronephrosis. Exophytic and cortical renal nodules presumed cystic, although evaluation limited by the absence of contrast. No acute hepatobiliary abnormality. No ascites or fluid collection. Dictated by: Dictated on workstation # [id number]
== END ==
LOC: RAD 11:26
PROVIDERS: ATTEND Internal Medicine
DX: N28.9 Disorder of kidney and ureter, unspecified (principal)
CPT/HCPCS: 74176

== ENCOUNTER → 2017-04-28 | Outpatient (CLI) | payer BC, MEDICARE ==
--- NOTE | 2017-04-28 11:11 | Diagnostic Imaging Report ---
Gastric emptying scan. INDICATION: Abdominal pain and fullness. EVALUATE FOR GASTROPERISIS/DMII. After the oral administration of 1.1 mCi of technetium 99m sulfur colloid mixed in a meal , images over the stomach with counts performed. FINDINGS: Gastric emptying is 43% at one hour , 71% at 2 hours, 79%, at 3 hours, and 90% at 4 hours. IMPRESSION: Gastric emptying within normal limits. Dictated by: Dictated on workstation # [id number]
== END ==
LOC: CARD 06:34
PROVIDERS: ATTEND Internal Medicine
DX: R11.0 Nausea (principal); E11.9 Type 2 diabetes mellitus without complications
CPT/HCPCS: 78264

== ENCOUNTER 2018-01-23 20:27 | Outpatient (CLI) | payer BC, MEDICARE ==
[~2018-01-23 20:27] MED LIST changes: +ACHD5005 PO; -AMLO10TA2 PO; +AMLO10TA6 PO; +CARB15DR OU; -CARB15DR74 OU; -HYDR-3812 PO; -LOSA50TA36 PO; +LOSA50TA7 PO
== END 2018-01-24 05:40 | disposition home or self-care (01) ==
LOC: SLEEP 20:27
PROVIDERS: ATTEND Nurse Practitioner Family
DX: G47.33 Obstructive sleep apnea (adult) (pediatric) (principal); R09.02 Hypoxemia; J30.9 Allergic rhinitis, unspecified
CPT/HCPCS: 95810

== ENCOUNTER → 2018-02-03 | Outpatient (CLI) | payer BC, MEDICARE ==
[2018-02-03 11:45] LABS: BASOPHILS # (AUTO) 0.1 10^3/uL (0.0-0.1); BASOPHILS % (AUTO) 1 % (0-10); EOSINOPHILS # (AUTO) 0.6 10^3/uL (0.0-0.3); EOSINOPHILS % (AUTO) 8 % (0-10); HEMATOCRIT 43 % (40-54); HEMOGLOBIN 14.4 G/DL (13.3-17.7); LYMPHOCYTES # (AUTO) 3.1 X 10^3 (1.0-4.0); LYMPHOCYTES % (AUTO) 39 % (12-44); MEAN CORPUSCULAR HEMOGLOBIN 30 PG (25-34); MEAN CORPUSCULAR HGB CONC 33 G/DL (32-36); MEAN CORPUSCULAR VOLUME 90 FL (80-99); MEAN PLATELET VOLUME 10.6 FL (7.4-10.4); MONOCYTES # (AUTO) 0.8 X 10^3 (0.0-1.0); MONOCYTES % (AUTO) 10 % (0-12); NEUTROPHILS # (AUTO) 3.3 X 10^3 (1.8-7.8); NEUTROPHILS % (AUTO) 42 % (42-75); PLATELET COUNT 248 10^3/uL (130-400); RED BLOOD COUNT 4.82 10^6/uL (4.35-5.85); RED CELL DISTRIBUTION WIDTH 14.1 % (10.0-14.5)
[2018-02-03 12:05] LABS: ALBUMIN 4.1 GM/DL (3.2-4.5); BILIRUBIN,TOTAL 0.6 MG/DL (0.1-1.0); CALCIUM 9.5 MG/DL (8.5-10.1); CREATININE SERUM 2.26 MG/DL (0.60-1.30); POTASSIUM 4.2 MMOL/L (3.6-5.0); TOTAL PROTEIN 8.1 GM/DL (6.4-8.2); URIC ACID 4.9 MG/DL (2.6-7.2)
--- NOTE | 2018-02-03 12:11 | Diagnostic Imaging Report ---
EXAMINATION: Left elbow radiographs, three views. COMPARISON: None. HISTORY: 67-year-old male, pain and swelling of the left elbow. FINDINGS: There is no large elbow joint effusion. The elbow is not dislocated. There is some irregularity in the region of the coronoid process on the lateral view. This is age indeterminate. There is no otherwise identified potential fracture. IMPRESSION: 1. Mild irregularity of the coronoid process of uncertain exact age. 2. No otherwise identified potential fracture. 3. No elbow joint effusion. 4. No elbow dislocation. Dictated by: Dictated on workstation # [id number]
== END ==
LOC: LAB 11:24
PROVIDERS: ATTEND Nurse Practitioner Family
DX: M25.522 Pain in left elbow (principal); M25.422 Effusion, left elbow
CPT/HCPCS: 36415; 73080; 80053; 84550; 85025

== ENCOUNTER → 2018-03-06 | Outpatient (CLI) | payer BC, MEDICARE ==
[~2018-03-06] MED LIST changes: +CATHETER FLUSH 10 ML SYR IV PRN; +REGADENOSON 0.4 MG/5 ML SYR (LEXISCAN) IV ONE
[2018-03-06 09:58] VITALS: BP 198/104
[2018-03-06 09:59] VITALS: BP 188/97
--- NOTE | 2018-03-06 21:26 | STRESS TEST ---
DATE OF SERVICE: 03/06/2018 RESTING AND POST REGADENOSON TECHNETIUM-99M TETROFOSMIN SPECT CT IMAGING ORDERING PHYSICIAN: Meghna Ricks APRN PRIMARY PHYSICIAN: Dr. Ferreira. CLINICAL DIAGNOSIS: Chest discomfort. Baseline images were carried out after injection of 10.28 mCi of technetium-99m Tetrofosmin. This was followed by 0.4 mg regadenoson and 28.4 mCi of technetium-99m Tetrofosmin for stress imaging. The electrocardiogram showed sinus rhythm with an early repolarization pattern. This did not change significantly with regadenoson infusion. The patient did not report any significant symptoms. Review of images at rest and following stress does not indicate any distinct perfusion defects consistent with significant myocardial ischemia or infarction. Gated images show normal global left ventricular systolic function, normal regional wall motion. Left ventricular ejection fraction is calculated to be 53%. Left ventricular end diastolic volume 91 mL. TID is absent (1.05). CONCLUSIONS: 1. No evidence of significant myocardial ischemia or infarction on this study. 2. Normal regional wall motion. 3. Normal global left ventricular systolic function with a calculated ejection fraction of 53%. Job ID: [id number] DocumentID: [id number] Dictated Date: 03/06/2018 18:44:23 Graduate Teacher Education Date: 03/06/2018 21:25:53 Dictated By: BHUMI SHARMA MD, MA, FACP, FACC, MTDD
== END ==
LOC: CARD 08:35
PROVIDERS: ATTEND Nurse Practitioner Family
DX: R07.9 Chest pain, unspecified (principal); R06.09 Other forms of dyspnea; I12.9 Hypertensive chronic kidney disease with stage 1 through stage 4 chronic kidney disease, or unspecified chronic kidney disease; N18.3 Chronic kidney disease, stage 3 (moderate); I25.10 Atherosclerotic heart disease of native coronary artery without angina pectoris; G47.33 Obstructive sleep apnea (adult) (pediatric)
CPT/HCPCS: 78452; 93017

== ENCOUNTER → 2018-03-28 | Outpatient (CLI) | payer BC, MEDICARE ==
[~2018-03-28] MED LIST changes: -CATHETER FLUSH 10 ML SYR IV PRN; -REGADENOSON 0.4 MG/5 ML SYR (LEXISCAN) IV ONE
== END ==
LOC: CARD 08:23
PROVIDERS: ATTEND Nurse Practitioner Family
DX: R07.9 Chest pain, unspecified (principal); R06.09 Other forms of dyspnea; I12.9 Hypertensive chronic kidney disease with stage 1 through stage 4 chronic kidney disease, or unspecified chronic kidney disease; N18.3 Chronic kidney disease, stage 3 (moderate); I25.10 Atherosclerotic heart disease of native coronary artery without angina pectoris; G47.33 Obstructive sleep apnea (adult) (pediatric)
CPT/HCPCS: 93306

== ENCOUNTER 2018-09-19 19:58 | Outpatient (CLI) | payer BC, MEDICARE ==
[~2018-09-19 19:58] MED LIST changes: -AMLO10TA6 PO; +AMLO10TA7 PO; +LOSA50TA63 PO; -LOSA50TA7 PO
== END 2018-09-20 04:55 | disposition home or self-care (01) ==
LOC: SLEEP 19:58
PROVIDERS: ATTEND Nurse Practitioner Family
DX: G47.33 Obstructive sleep apnea (adult) (pediatric) (principal); I10 Essential (primary) hypertension; I25.10 Atherosclerotic heart disease of native coronary artery without angina pectoris; E66.8 Other obesity; J45.998 Other asthma; R05 Cough; G47.50 Parasomnia, unspecified; Z78.9 Other specified health status; J30.9 Allergic rhinitis, unspecified
CPT/HCPCS: 95811

== ENCOUNTER → 2018-10-12 | Outpatient (CLI) | payer BC, MEDICARE ==
[~2018-10-12] MED LIST changes: +RT-ALBUTEROL SULF 2.5 MG/3 ML PRE-MIX VIAL INH ONE; +RT-ALBUTEROL SULF 2.5 MG/3 ML PRE-MIX VIAL ONE
== END ==
LOC: RT 11:33
PROVIDERS: ATTEND Nurse Practitioner Family
DX: I10 Essential (primary) hypertension (principal); I25.10 Atherosclerotic heart disease of native coronary artery without angina pectoris; J30.9 Allergic rhinitis, unspecified; R05 Cough; E66.8 Other obesity; J45.998 Other asthma; G47.50 Parasomnia, unspecified; Z78.9 Other specified health status
CPT/HCPCS: 94060; 94726; 94729

== ENCOUNTER 2019-10-12 21:00 | Emergency (ER) | payer BC, MEDICARE ==
[~2019-10-12] VITALS: Ht 182 cm; Wt 107.0 kg
[~2019-10-12 21:00] MED LIST changes: -GLIM2TAB PO; +GLIM2TAB4 PO; -MECL-106 PO; +MECL-149 PO; -RT-ALBUTEROL SULF 2.5 MG/3 ML PRE-MIX VIAL INH ONE; -RT-ALBUTEROL SULF 2.5 MG/3 ML PRE-MIX VIAL ONE; +SIMV40TA25 PO; -SIMV40TA4 PO
--- NOTE | 2019-10-12 21:39 | ED Cardiac General ---
History of Present Illness General Chief Complaint: General Problems/Pain Stated Complaint: HIGH BP Nursing Triage Note: Pt reports recent adjustment of BP meds by PCP with c/o HTN and feelings of unsteadiness at home. Denies CP, SOB. Source: patient Exam Limitations: no limitations History of Present Illness Date Seen by Provider: Oct 12, 2019 Time Seen by Provider: 21:22 Initial Comments Patient presents ER by private conveyance from home with chief complaint last 3 or 4 days he's had elevated hypertension above 200 systolic yesterday. 2 weeks ago he was taken off of the guanfacine by Dr. Ferreira his primary care doctor and he treats that to his high blood pressure. He restarted the medication per Dr. Ferreira on Monday, yesterday. He is not having any chest pain but he has some increased bloating and pressure around his abdomen. No increased swelling around his feet. He says been urinating frequently and uses Lasix. Have a hi story of heart failure and AR with stents by Dr. Galvez. He has a history of diabetes, early-onset familial history, hypertension, hypercholesterolemia. He denies chest pain or shortness of breath. His concern today with his high blood pressure. He is on prazosin, Lasix, spironolactone. He takes aspirin 325 mg a day and took one this morning. He has nitroglycerin but has not used it. Echocardiogram [address] Galvez: EF of 65-70% with concentric hypertrophy and mildly increased wall thickness. Grade 1 diastolic dysfunction. History of hypertensive crisis with chest pressure, GERD, CK 80 stage III, diabetes type 2, CAD. Intolerance totherapy related to frequent, nonproductive cough. Intolerance to Cardizem as a cause bradycardia in the past. Was on Norvasc for hypertension in the past. History of elevated liver enzymes of undetermined etiology. Allergies and Home Medications Allergies Coded Allergies: levofloxacin (Verified Allergy, Unknown, 04/20/15) metformin (Verified Allergy, Unknown, 04/20/15) Home Medications Allopurinol 300 Mg Tab, 300 MG PO DAILY, (Reported) Aspirin 325 Mg Tabec, 325 MG PO HS, (Reported) Atorvastatin Calcium 80 Mg Tablet, 80 MG PO HS, (Reported) Budesonide/Formoterol Fumarate 10.2 Gm Hfa.aer.ad, 2 PUFF IH HS, (Reported) Carboxymethylcellulose Sodium 15 Ml Drops, 1 DROP OU QID PRN for DRY EYES, (Reported) Doxazosin Mesylate 2 Mg Tablet, 2 MG PO BID PRN for BLOOD PRESSURE Prescribed by: KAYLA OSEI on 07/16/15 1338 Furosemide 20 Mg Tablet, 20 MG PO DAILY, (Reported) Gabapentin 100 Mg Capsule, 100 MG PO HS, (Reported) Glimepiride 2 Mg Tablet, 4 MG PO EVERY EVENING, (Reported) TAKES 2 (2 MG) TABLETS Glimepiride 2 Mg Tablet, 2 MG PO DAILY, (Reported) Guanfacine Hcl 2 Mg Tablet, 4 MG PO HS, (Reported) TAKES 2 (2 MG) TABLETS Hydrocodone Bit/Acetaminophen 1 Each Tablet, 1 EACH PO Q6H PRN for BREAKTHROUGH PAIN Prescribed by: GENESIS OLIVAREZ on 01/12/17 0944 Insulin Aspart 10 Unit/0.1 Ml Susp, 2-6 UNITS SQ UD, (Reported) PER (A) SLIDING SCALE Insulin Detemir 100 U/Ml Vial, 35 UNITS SQ BID, (Reported) Lisinopril 40 Mg Tablet, 40 MG PO DAILY, (Reported) Loratadine 10 Mg Tablet, 10 MG PO DAILY, (Reported) Meclizine HCl 25 Mg Tablet, 25 MG PO BID PRN for DIZZINESS Prescribed by: LINDA PEÑA on 11/05/15 1355 Omeprazole 20 Mg Capsule.dr, 20 MG PO BID, (Reported) Tramadol Hcl 50 Mg Tablet, 25 MG PO HS PRN for PAIN, (Reported) TAKES 1/2 OF A (50 MG) TABLET Zolpidem Tartrate 10 Mg Tablet, 10 MG PO HS PRN for SLEEP, (Reported) Patient Home Medication List Home Medication List Reviewed: Yes Review of Systems Review of Systems Constitutional: No chills, No weakness EENTM: No Blurred Vision, No Double Vision, No Eye Pain Respiratory: Denies Cough, Denies Shortness of Air Cardiovascular: Denies Chest Pain, Denies Edema Gastrointestinal: Denies Constipated, Denies Diarrhea, Denies Nausea Genitourinary: Denies Burning, Denies Discharge, Denies Drainage, Denies Pain Musculoskeletal: No back pain, No joint pain Psychiatric/Neurological: Denies Anxiety, Denies Depressed All Other Systems Reviewed Negative Unless Noted: Yes Past Zfuiecd-Kwwpvh-Weymhn Hx Patient Social History Alcohol Use: Denies Use Recreational Drug Use: No Smoking Status: Never a Smoker 2nd Hand Smoke Exposure: No Recent Foreign Travel: No Contact w/Someone Who Travel: No Recent Infectious Disease Expo: No Recent Hopitalizations: No Physical Abuse: No Sexual Abuse: No Mistreated: No Fear: No Immunizations Up To Date Tetanus Booster (TDap): Less than 5yrs Date of Pneumonia Vaccine: Feb 20, 2015 Date of Influenza Vaccine: Feb 20, 2015 Seasonal Allergies Seasonal Allergies: Yes Past Medical History Surgeries: Yes (LEFT KNEE SCOPE X 2; RIGHT CARPAL TUNNEL;HERNIA REPAIR; HEART CATHX3) Abdominal, Cardiac, Coronary Stent, Orthopedic Respiratory: Yes Asthma Currently Using CPAP: No Currently Using BIPAP: No Cardiac: Yes (STENT X1 , AR AT 41) Chronic Edema/Swelling, Coronary Artery Disease, Heart Attack, High Cholesterol, Hypertension Neurological: Yes Neuropathy Reproductive Disorders: No Sexually Transmitted Disease: No HIV/AIDS: No Renal Failure Gastrointestinal: Yes (hep A) Gastroesophageal Reflux, Hepatitis Musculoskeletal: Yes Arthritis, Back Injury, Gout Endocrine: Yes Diabetes, Insulin dep Loss of Vision: Denies Hearing Impairment: Hearing Aide Right Cancer: No Psychosocial: No Integumentary: No Blood Disorders: No Adverse Reaction/Blood Tranf: No Family Medical History Patient reports no known family medical history. No Pertinent Family Hx Physical Exam Vital Signs Vital Signs - First Documented 10/12/19 21:24 Temp 37.0 Pulse 75 Resp 16 B/P (MAP) 208/106 (140) Pulse Ox 95 O2 Delivery Room Air Capillary Refill : Less Than 3 Seconds Height, Weight, BMI Height: 6'1.00" Weight: 235lbs. 6.0oz. 106.451948uq; 32.00 BMI Method:Stated General Appearance: No Apparent Distress, WD/WN HEENT: PERRL/EOMI, Pharynx Normal, Moist Mucous Membranes Neck: Full Range of Motion, Normal Inspection Respiratory: Chest Non Tender, Lungs Clear, Normal Breath Sounds, No Accessory Muscle Use, No Respiratory Distress Cardiovascular: Regular Rate, Rhythm, No Edema, Normal Peripheral Pulses Gastrointestinal: Normal Bowel Sounds, No Organomegaly, Non Tender, Soft, Diste nded Extremity: Normal Capillary Refill, Normal Inspection, No Pedal Edema Neurologic/Psychiatric: Alert, Oriented x3, No Motor/Sensory Deficits Skin: Normal Color, Warm/Dry Progress/Results/Core Measures Results/Orders Lab Results Laboratory Tests Test 10/12/19 22:30 10/13/19 00:21 Range/Units White Blood Count 8.3 4.3-11.0 10^3/uL Red Blood Count 4.96 4.35-5.85 10^6/uL Hemoglobin 14.7 13.3-17.7 G/DL Hematocrit 45 40-54 % Mean Corpuscular Volume 91 80-99 FL Mean Corpuscular Hemoglobin 30 25-34 PG Mean Corpuscular Hemoglobin Concent 33 32-36 G/DL Red Cell Distribution Width 14.2 10.0-14.5 % Platelet Count 207 130-400 10^3/uL Mean Platelet Volume 11.0 H 7.4-10.4 FL Neutrophils (%) (Auto) 43 42-75 % Lymphocytes (%) (Auto) 35 12-44 % Monocytes (%) (Auto) 10 0-12 % Eosinophils (%) (Auto) 12 H 0-10 % Basophils (%) (Auto) 1 0-10 % Neutrophils # (Auto) 3.6 1.8-7.8 X 10^3 Lymphocytes # (Auto) 2.9 1.0-4.0 X 10^3 Monocytes # (Auto) 0.8 0.0-1.0 X 10^3 Eosinophils # (Auto) 1.0 H 0.0-0.3 10^3/uL Basophils # (Auto) 0.1 0.0-0.1 10^3/uL Sodium Level 137 135-145 MMOL/L Potassium Level 4.4 3.6-5.0 MMOL/L Chloride Level 105 98-107 MMOL/L Carbon Dioxide Level 20 L 21-32 MMOL/L Anion Gap 12 5-14 MMOL/L Blood Urea Nitrogen 36 H 7-18 MG/DL Creatinine 2.92 H 0.60-1.30 MG/DL Estimat Glomerular Filtration Rate 26 BUN/Creatinine Ratio 12 Glucose Level 248 H 70-105 MG/DL Calcium Level 8.9 8.5-10.1 MG/DL Corrected Calcium 8.8 8.5-10.1 MG/DL Total Bilirubin 0.5 0.1-1.0 MG/DL Aspartate Amino Transf (AST/SGOT) 26 5-34 U/L Alanine Aminotransferase (ALT/SGPT) 18 0-55 U/L Alkaline Phosphatase 107 40-136 U/L Troponin I 0.084 H 0.081 H <0.028 NG/ML B-Type Natriuretic Peptide < 10.0 <100.0 PG/ML Total Protein 7.8 6.4-8.2 GM/DL Albumin 4.1 3.2-4.5 GM/DL My Orders Orders - GENESIS OLIVAREZ Continuous Ekg Monitoring (10/12/19 21:07) Ekg Tracing (10/12/19 21:07) Cbc With Automated Diff (10/12/19 21:31) Comprehensive Metabolic Panel (10/12/19 21:31) BNP (10/12/19 21:31) Troponin I (10/12/19 21:31) Aspirin Chewable Tablet (Baby Aspirin Ch (10/12/19 21:45) Chest 1 View, Ap/Pa Only (10/12/19 21:31) Amlodipine Tablet (Norvasc Tablet) (10/12/19 22:15) Clonidine Tablet (Catapres Tablet) (10/12/19 23:45) Troponin I (10/13/19 00:30) Medications Given in ED Current Medications Medications Dose Ordered Sig/Rufino Route Start Time Stop Time Status Last Admin Dose Admin Amlodipine Besylate 10 mg ONCE ONCE PO 10/12/19 22:15 10/12/19 22:16 DC 10/12/19 22:28 10 MG Aspirin 162 mg ONCE ONCE PO 10/12/19 21:45 10/12/19 21:46 DC 10/12/19 22:28 162 MG Clonidine HCl 0.1 mg ONCE ONCE PO 10/12/19 23:45 10/12/19 23:46 DC 10/13/19 00:08 0.1 MG Vital Signs/I&O 10/12/19 10/12/19 10/12/19 10/13/19 21:24 22:55 23:51 00:25 Temp 37.0 Pulse 75 101 74 60 Resp 16 16 16 16 B/P (MAP) 208/106 (140) 171/81 (111) 190/90 (123) 164/75 (104) Pulse Ox 95 99 99 99 O2 Delivery Room Air Room Air Room Air Room Air 10/13/19 00:57 Pulse 65 Resp 18 B/P (MAP) 155/78 Pulse Ox 99 O2 Delivery Room Air Blood Pressure Mean: 140 Progress Progress Note #1: Time: 21:38 Progress Note Patient presents with hypertension, abdominal distention and generally feeling tired. Hypertensive urgency with or without heart failure acutely. Plan to give him some aspirin and monitor his blood pressure for a couple rounds if it stays high we will give him an antihypertensive. Progress Note #2: Time: 22:13 Progress Note The blood pressures a little better at 185/88 with rest. Patient's symptoms have not changed. The plan to give him Norvasc 10 mg. He tolerated this in the past and said he had no reaction and does not recall why they took him off of it. Progress Note #3: Time: 01:03 Progress Note The patient has no chest pain worse other symptoms. He sleeping and resting comfortably. His blood pressures 158/85 after the clonidine. Plan to put him out on it twice a day. Follow-up with Dr. Galvez in the clinic next week for following. Initial ECG Impression Date: Oct 12, 2019 Initial ECG Impression Time: 21:16 Initial ECG Rate: 73 Initial ECG Rhythm: Normal Sinus Initial ECG Intervals: Normal Initial ECG Impression: Normal, Nonspecific Changes Comment Normal sinus rhythm without clinically relevant ST elevation or depression. LVH. Diagnostic Imaging Diagonstic Imaging: Xray Plain Films/CT/US/NM/MRI: chest (1v) Comments [facility], [place] NAME: DOMINICK ARELLANO Jay [facility] REC#: [id number] PT STATUS: REG ER : 1950 PHYSICIAN: GENESIS OLIVAREZ MD ADMIT DATE: 10/12/19/ER Signed Date of Exam:10/12/19 CHEST 1 VIEW, AP/PA ONLY INDICATION: Hypertension. Unsteadiness. EXAMINATION: Upright portable chest was obtained. FINDINGS: Normal heart size and vascularity. The lungs are clear. There is no effusion or pneumothorax. There is no bony abnormality. IMPRESSION: Normal chest with no change from 07/14/2015. Dictated by: Dictated on workstation # [id number] Dict: 10/12/192154 Trans: 10/12/192157 [facility] [id number] Interpreted by: CLAUDIA BERNAL MD Electronically signed by: CLAUDIA BERNAL MD 10/12/192157 Reviewed: Reviewed by Me Consults : Consulting Physician: BIPIN MORENO MD Consults Notes Discussed the case with Dr. Moreno at 26/07/39. He agrees with repeating a delta troponin and if it's not arising then he would attributed to the CKD. Patient had no anginal symptoms since she's been here. He recommends clonidine 0.1 mg now. Departure Impression Primary Impression: Hypertensive urgency Disposition: HOME, SELF-CARE Condition: Stable Departure-Patient Inst. Decision time for Depature: 01:05 Referrals: ZULEMA FERREIRA MD (PCP/Family) Primary Care Physician Patient Instructions: High Blood Pressure (DC) Add. 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 Plan to follow up with Dr. Ferreira in the next couple weeks to review your blood pressure. Please return to the ER promptly if you experience chest pain, shortness of breath or other worrisome symptoms. All discharge instructions reviewed with patient and/or family. Voiced understanding. Scripts Clonidine HCl (Clonidine HCl) 0.1 Mg Tablet 0.1 MG PO BID for 30 Days, #60 TAB 0 Refills Prov: GENESIS OLIVAREZ 10/13/19 GENESIS OLIVAREZ Oct 12, 2019 21:39
[2019-10-12] MEDS ORDERED: ASPIRIN 81 MG CHEW (CHILDREN'S ASA) PO ONE (21:45)
--- NOTE | 2019-10-12 21:57 | Diagnostic Imaging Report ---
INDICATION: Hypertension. Unsteadiness. EXAMINATION: Upright portable chest was obtained. FINDINGS: Normal heart size and vascularity. The lungs are clear. There is no effusion or pneumothorax. There is no bony abnormality. IMPRESSION: Normal chest with no change from 07/14/2015. Dictated by: Dictated on workstation # [id number]
[2019-10-12] MEDS ORDERED: amLODIPine 10 MG (NORVASC) TAB PO ONE (22:15)
[2019-10-12 22:42] LABS: BASOPHILS # (AUTO) 0.1 10^3/uL (0.0-0.1); BASOPHILS % (AUTO) 1 % (0-10); EOSINOPHILS % (AUTO) 12 % (0-10); HEMATOCRIT 45 % (40-54); HEMOGLOBIN 14.7 G/DL (13.3-17.7); LYMPHOCYTES # (AUTO) 2.9 X 10^3 (1.0-4.0); LYMPHOCYTES % (AUTO) 35 % (12-44); MEAN CORPUSCULAR HEMOGLOBIN 30 PG (25-34); MEAN CORPUSCULAR HGB CONC 33 G/DL (32-36); MEAN CORPUSCULAR VOLUME 91 FL (80-99); MONOCYTES # (AUTO) 0.8 X 10^3 (0.0-1.0); MONOCYTES % (AUTO) 10 % (0-12); NEUTROPHILS # (AUTO) 3.6 X 10^3 (1.8-7.8); NEUTROPHILS % (AUTO) 43 % (42-75); PLATELET COUNT 207 10^3/uL (130-400); RED CELL DISTRIBUTION WIDTH 14.2 % (10.0-14.5); WHITE BLOOD COUNT 8.3 10^3/uL (4.3-11.0)
[2019-10-12 22:48] LABS: ALBUMIN 4.1 GM/DL (3.2-4.5)
[2019-10-12 22:49] LABS: POTASSIUM 4.4 MMOL/L (3.6-5.0)
[2019-10-12 22:50] LABS: CALCIUM 8.9 MG/DL (8.5-10.1)
[2019-10-12 22:51] LABS: TOTAL PROTEIN 7.8 GM/DL (6.4-8.2)
[2019-10-12 22:53] LABS: BILIRUBIN,TOTAL 0.5 MG/DL (0.1-1.0)
[2019-10-12 22:55] VITALS: BP 171/81
[2019-10-12 22:55] LABS: CREATININE SERUM 2.92 MG/DL (0.60-1.30)
[2019-10-12] MEDS ORDERED: cloNIDine 0.1 MG (CATAPRES) TAB PO ONE (23:45)
[2019-10-12 23:51] VITALS: BP 190/90
[2019-10-13 00:25] VITALS: BP 164/75
[2019-10-13 00:57] VITALS: BP 155/78
[2019-10-13] MEDS ORDERED: CLON0.1T PO (01:09)
== END 2019-10-13 01:13 | disposition home or self-care (01) ==
LOC: EDUNIT# 21:00 → ER 21:01
DX: I16.0 Hypertensive urgency (principal); I11.0 Hypertensive heart disease with heart failure; I50.9 Heart failure, unspecified; I25.2 Old myocardial infarction; J45.909 Unspecified asthma, uncomplicated; E78.00 Pure hypercholesterolemia, unspecified; I25.10 Atherosclerotic heart disease of native coronary artery without angina pectoris; E11.40 Type 2 diabetes mellitus with diabetic neuropathy, unspecified; K21.9 Gastro-esophageal reflux disease without esophagitis; M10.9 Gout, unspecified; Z79.82 Long term (current) use of aspirin; Z79.4 Long term (current) use of insulin; Z95.5 Presence of coronary angioplasty implant and graft
CPT/HCPCS: 36415; 71045; 80053; 83880; 84484; 85025; 93005

== ENCOUNTER → 2019-10-15 | Outpatient (CLI) | payer BC, MEDICARE ==
[~2019-10-15] MED LIST changes: +ACET-2267 PO; +ALLO300T2 PO; +AMLO5TAB9 PO; +ASPI325T32 PO; +CARV12.53 PO; +CETI10TA17 PO; +CLON0.1T PO; +DOXA4TAB2 PO; +FURO40TA4 PO; +GLIM4TAB5 PO; +INSU100I29 SQ; +INSU100I55 SQ; +MAGN400T39 PO; +NITR0.4T39 SL; +OMEP20CA18 PO; +OXYB5TAB13 PO; +POLY17PO6 PO; +SENN-145 PO; +SPIR50TA4 PO; +TR1C15 TOP
--- NOTE | 2019-10-15 12:37 | Diagnostic Imaging Report ---
PROCEDURE: US Renal Bilateral. TECHNIQUE: Multiple Real-time grayscale images were obtained over the kidneys in various projections bilaterally. INDICATION: Chronic kidney disease. FINDINGS: The right kidney measures 12.7 x 5.4 x 7.3 cm. The left kidney measures 12.0 x 5.9 x 5.8 cm. Multiple rounded hypoechoic masses are seen within the bilateral kidneys, suggestive of cysts. The largest on the right is in the midportion measuring 5.1 x 4.0 x 3.9 cm. The largest on the left is approximately 2.3 x 2.0 x 2.1 cm. No renal calculus or hydronephrosis is seen. Images of the bladder demonstrate an echogenic focus suggestive of a bladder stone. This measures 1.4 x 0.8 x 1.5 cm. The right ureteral jet was visualized. The left ureteral jet was not visualized. IMPRESSION: 1. Bilateral renal cystic disease. No calculus or hydronephrosis is detected. 2. Probable bladder calculus. Dictated by: Dictated on workstation # [id number]
== END ==
LOC: RAD 09:14
PROVIDERS: ATTEND Internal Medicine
DX: N28.1 Cyst of kidney, acquired (principal); N18.4 Chronic kidney disease, stage 4 (severe)
CPT/HCPCS: 76770

== ENCOUNTER 2019-10-16 06:39 | Observation (INO) | payer BC, MEDICARE ==
[~2019-10-16] VITALS: Ht 182 cm; Wt 107.0 kg
[~2019-10-16 06:39] MED LIST changes: -ACET-2267 PO; -ALLO300T2 PO; -AMLO5TAB9 PO; -ASPI325T32 PO; -CARV12.53 PO; -CETI10TA17 PO; -DOXA4TAB2 PO; -FURO40TA4 PO; -GLIM4TAB5 PO; -INSU100I29 SQ; -INSU100I55 SQ; -MAGN400T39 PO; -NITR0.4T39 SL; -OMEP20CA18 PO; -OXYB5TAB13 PO; -POLY17PO6 PO; -SENN-145 PO; -SPIR50TA4 PO; -TR1C15 TOP
[2019-10-16 07:24] LABS: BASOPHILS # (AUTO) 0.1 10^3/uL (0.0-0.1); BASOPHILS % (AUTO) 1 % (0-10); EOSINOPHILS # (AUTO) 1.1 10^3/uL (0.0-0.3); EOSINOPHILS % (AUTO) 12 % (0-10); HEMATOCRIT 45 % (40-54); HEMOGLOBIN 14.8 G/DL (13.3-17.7); LYMPHOCYTES # (AUTO) 3.2 X 10^3 (1.0-4.0); LYMPHOCYTES % (AUTO) 34 % (12-44); MEAN CORPUSCULAR HEMOGLOBIN 30 PG (25-34); MEAN CORPUSCULAR HGB CONC 33 G/DL (32-36); MEAN CORPUSCULAR VOLUME 90 FL (80-99); MEAN PLATELET VOLUME 11.1 FL (7.4-10.4); MONOCYTES # (AUTO) 0.8 X 10^3 (0.0-1.0); MONOCYTES % (AUTO) 9 % (0-12); NEUTROPHILS # (AUTO) 4.1 X 10^3 (1.8-7.8); NEUTROPHILS % (AUTO) 44 % (42-75); PLATELET COUNT 212 10^3/uL (130-400); RED CELL DISTRIBUTION WIDTH 14.4 % (10.0-14.5); WHITE BLOOD COUNT 9.3 10^3/uL (4.3-11.0)
[2019-10-16 07:25] LABS: ALBUMIN 4.2 GM/DL (3.2-4.5); POTASSIUM 4.2 MMOL/L (3.6-5.0)
[2019-10-16 07:26] LABS: CALCIUM 9.2 MG/DL (8.5-10.1)
[2019-10-16 07:29] LABS: BILIRUBIN,TOTAL 0.6 MG/DL (0.1-1.0)
[2019-10-16 07:31] LABS: CREATININE SERUM 3.16 MG/DL (0.60-1.30)
--- NOTE | 2019-10-16 08:10 | NUR ---
DR NOTIFIED HIM THAT PT'S WOULD LIKE UPDATED.
[2019-10-16 08:19] LABS: PROTHROMBIN TIME PATIENT 13.1 SEC (12.2-14.7)
[2019-10-16 08:28] LABS: MAGNESIUM 1.5 MG/DL (1.6-2.4)
--- NOTE | 2019-10-16 08:35 | NUR ---
DR RENETTA NGUYEN STATES HE HAS TRIED TO CALL PT'S SEVERAL TIMES AND IT GOES STRAIT TO VOICEMAIL.
[2019-10-16] MEDS ORDERED: ONDANSETRON 4 MG/2 ML (SDV) Z0FRAN IVP ONE (08:45)
[2019-10-16] MEDS ORDERED: NS IV 1000 ML 1,000 ML IV ONE (08:48)
--- NOTE | 2019-10-16 08:49 | NUR ---
DR NOTIFIED OF PT FEELING SICK TO HIS STOMACH AND BP 187/101.
--- NOTE | 2019-10-16 08:53 | Diagnostic Imaging Report ---
INDICATION: Fever and chills, shortness of breath. TIME OF EXAM: 8:41 AM. COMPARISON: 10/12/2019. FINDINGS: The heart size is normal. The pulmonary vascularity is unremarkable. The lungs are clear. No infiltrate, effusion, or pneumothorax is detected. IMPRESSION: No acute cardiopulmonary process is detected. Dictated by: Dictated on workstation # [id number]
[2019-10-16] MEDS ORDERED: LABETALOL HCL 20 MG/4 ML VIAL IV ONE (09:00)
[2019-10-16] MEDS ORDERED: MAGNESIUM OXIDE (MAG-OX)400 MG TAB PO ONE (09:00)
[2019-10-16 09:14] LABS: BILIRUBIN,URINE NEGATIVE (NEGATIVE); CLARITY,URINE SL CLOUDY; COLOR,URINE YELLOW; GLUCOSE, URINE (UA) NEGATIVE (NEGATIVE); KETONES,URINE NEGATIVE (NEGATIVE); LEUKOCYTE ESTERASE ,URINE NEGATIVE (NEGATIVE); NITRITE,URINE NEGATIVE (NEGATIVE); PH,URINE 6.5 (5-9); PROTEIN,URINE 2+ (NEGATIVE)
[2019-10-16 09:22] LABS: BACTERIA,URINE NEGATIVE /HPF; SQUAMOUS EPITHELIAL CELL,UR RARE /HPF
--- NOTE | 2019-10-16 10:40 | NUR ---
RESTING IN BED. DENIES NEEDS BP 161/88 AT THIS TIME.
--- NOTE | 2019-10-16 12:19 | ED General ---
General Chief Complaint: Respiratory Problems Stated Complaint: HIGH BP,SOB,FEVER,NAUSEA Nursing Triage Note: Pt reports waking up this morning feeling feverish/chills, SOB, and pain between shoulderblades. Breathing even unlabored, ambulates to room without difficulty, speaks in full sentances. Seen last week for uncontrolled HTN. Denies travel, but reports he was apart of the rally this week with a large group of people. Nursing Sepsis Screen: No Definite Risk Source of Information: Patient, Family Exam Limitations: No Limitations History of Present Illness Date Seen by Provider: Oct 16, 2019 Time Seen by Provider: 06:44 Initial Comments This 69-year-old gentleman presents to the emergency room with multiple complaints including hypertension, nausea, shortness of breath, chills, and pain in the mid spinal area. He was recently seen in the emergency room on October 11 and adjustments were made to his medications because of hypertensive urgency. He was noted to have a elevated troponin with no delta at the 2 hour steven at that time. Patient has not had fever but does feel chilled. He reports attending a on October 11 and then attending [facility]. This does make him suspect for fernandez virus. COVID-19 screening with nasal swab was performed. Patient denies chest pain. Allergies and Home Medications Allergies Coded Allergies: levofloxacin (Verified Allergy, Unknown, 04/20/15) metformin (Verified Allergy, Unknown, 04/20/15) Home Medications Allopurinol 300 Mg Tab, 300 MG PO DAILY, (Reported) Aspirin 325 Mg Tabec, 325 MG PO HS, (Reported) Atorvastatin Calcium 80 Mg Tablet, 80 MG PO HS, (Reported) Budesonide/Formoterol Fumarate 10.2 Gm Hfa.aer.ad, 2 PUFF IH HS, (Reported) Carboxymethylcellulose Sodium 15 Ml Drops, 1 DROP OU QID PRN for DRY EYES, (Reported) Clonidine HCl 0.1 Mg Tablet, 0.1 MG PO BID Prescribed by: GENESIS OLIVAREZ on 10/13/19 0109 Doxazosin Mesylate 2 Mg Tablet, 2 MG PO BID PRN for BLOOD PRESSURE Prescribed by: KAYLA OSEI on 07/16/15 1338 Furosemide 20 Mg Tablet, 20 MG PO DAILY, (Reported) Gabapentin 100 Mg Capsule, 100 MG PO HS, (Reported) Glimepiride 2 Mg Tablet, 4 MG PO EVERY EVENING, (Reported) TAKES 2 (2 MG) TABLETS Glimepiride 2 Mg Tablet, 2 MG PO DAILY, (Reported) Guanfacine Hcl 2 Mg Tablet, 4 MG PO HS, (Reported) TAKES 2 (2 MG) TABLETS Insulin Aspart 10 Unit/0.1 Ml Susp, 2-6 UNITS SQ UD, (Reported) PER (A) SLIDING SCALE Insulin Detemir 100 U/Ml Vial, 35 UNITS SQ BID, (Reported) Loratadine 10 Mg Tablet, 10 MG PO DAILY, (Reported) Meclizine HCl 25 Mg Tablet, 25 MG PO BID PRN for DIZZINESS Prescribed by: LINDA PEÑA on 11/05/15 1673 Omeprazole 20 Mg Capsule.dr, 20 MG PO BID, (Reported) Tramadol Hcl 50 Mg Tablet, 25 MG PO HS PRN for PAIN, (Reported) TAKES 1/2 OF A (50 MG) TABLET Zolpidem Tartrate 10 Mg Tablet, 10 MG PO HS PRN for SLEEP, (Reported) Patient Home Medication List Home Medication List Reviewed: Yes Review of Systems Review of Systems Constitutional: see HPI, chills EENTM: no symptoms reported Respiratory: see HPI Cardiovascular: see HPI Gastrointestinal: see HPI, nausea Genitourinary: no symptoms reported Musculoskeletal: no symptoms reported Skin: no symptoms reported Psychiatric/Neurological: No Symptoms Reported Hematologic/Lymphatic: No Symptoms Reported Immunological/Allergic: no symptoms reported Past Zdrgpls-Rkqrje-Gmedui Hx Past Med/Social Hx: Reviewed Nursing Past Med/Soc Hx Patient Social History Alcohol Use: Denies Use Recreational Drug Use: No 2nd Hand Smoke Exposure: No Recent Foreign Travel: No Contact w/Someone Who Travel: No Recent Infectious Disease Expo: No (unknown) Recent Hopitalizations: No Physical Abuse: No Sexual Abuse: No Immunizations Up To Date Tetanus Booster (TDap): Less than 5yrs Date of Pneumonia Vaccine: Feb 20, 2015 Date of Influenza Vaccine: Feb 20, 2015 Seasonal Allergies Seasonal Allergies: Yes Past Medical History Surgeries: Yes (LEFT KNEE SCOPE X 2; RIGHT CARPAL TUNNEL;HERNIA REPAIR; HEART CATHX3) Abdominal, Cardiac, Coronary Stent, Orthopedic Respiratory: Yes Asthma Currently Using CPAP: No Currently Using BIPAP: No Cardiac: Yes (STENT X1 , MS AT 41) Chronic Edema/Swelling, Coronary Artery Disease, Heart Attack, High Cholesterol, Hypertension Neurological: Yes Neuropathy Reproductive Disorders: No Sexually Transmitted Disease: No HIV/AIDS: No Genitourinary: Yes Renal Failure Gastrointestinal: Yes (hep A) Gastroesophageal Reflux, Hepatitis Musculoskeletal: Yes Arthritis, Back Injury, Gout Endocrine: Yes Diabetes, Insulin dep Loss of Vision: Denies Hearing Impairment: Hearing Aide Right Cancer: No Psychosocial: No Integumentary: No Blood Disorders: No Adverse Reaction/Blood Tranf: No Family Medical History Patient reports no known family medical history. No Pertinent Family Hx Physical Exam Vital Signs Vital Signs - First Documented 10/16/19 07:26 Temp 36.9 Pulse 74 Resp 16 B/P (MAP) 182/102 (128) Pulse Ox 97 O2 Delivery Room Air Capillary Refill : Less Than 3 Seconds Height, Weight, BMI Height: 6'1.00" Weight: 235lbs. 6.0oz. 106.366259co; 32.00 BMI Method:Stated General Appearance: WD/WN, Mild Distress HEENT: PERRL/EOMI, Normal ENT Inspection Neck: Normal Inspection Respiratory: Lungs Clear, Normal Breath Sounds, No Accessory Muscle Use, No Respiratory Distress Cardiovascular: Regular Rate, Rhythm, No Edema, No Murmur, Normal Peripheral Pulses Gastrointestinal: Normal Bowel Sounds, Non Tender, Soft Extremity: Normal Inspection, No Pedal Edema Progress/Results/Core Measures Suspected Sepsis Recent Fever Within 48 Hours: No Infection Criteria Present: None New/Unexplained Altered Menta: No Sepsis Screen: No Definite Risk SIRS Temperature: Pulse: 74 Respiratory Rate: 16 Laboratory Tests 10/16/19 07:10: White Blood Count 9.3 Blood Pressure 182 /102 Mean: 128 Laboratory Tests 10/16/19 07:10: Creatinine 3.16H, Platelet Count 212, Total Bilirubin 0.6 10/16/19 07:45: INR Comment 1.0 Results/Orders Lab Results Laboratory Tests Test 10/16/19 07:10 10/16/19 07:19 10/16/19 07:45 10/16/19 09:05 Range/Units White Blood Count 9.3 4.3-11.0 10^3/uL Red Blood Count 5.01 4.35-5.85 10^6/uL Hemoglobin 14.8 13.3-17.7 G/DL Hematocrit 45 40-54 % Mean Corpuscular Volume 90 80-99 FL Mean Corpuscular Hemoglobin 30 25-34 PG Mean Corpuscular Hemoglobin Concent 33 32-36 G/DL Red Cell Distribution Width 14.4 10.0-14.5 % Platelet Count 212 130-400 10^3/uL Mean Platelet Volume 11.1 H 7.4-10.4 FL Neutrophils (%) (Auto) 44 42-75 % Lymphocytes (%) (Auto) 34 12-44 % Monocytes (%) (Auto) 9 0-12 % Eosinophils (%) (Auto) 12 H 0-10 % Basophils (%) (Auto) 1 0-10 % Neutrophils # (Auto) 4.1 1.8-7.8 X 10^3 Lymphocytes # (Auto) 3.2 1.0-4.0 X 10^3 Monocytes # (Auto) 0.8 0.0-1.0 X 10^3 Eosinophils # (Auto) 1.1 H 0.0-0.3 10^3/uL Basophils # (Auto) 0.1 0.0-0.1 10^3/uL Sodium Level 140 135-145 MMOL/L Potassium Level 4.2 3.6-5.0 MMOL/L Chloride Level 105 98-107 MMOL/L Carbon Dioxide Level 23 21-32 MMOL/L Anion Gap 12 5-14 MMOL/L Blood Urea Nitrogen 45 H 7-18 MG/DL Creatinine 3.16 H 0.60-1.30 MG/DL Estimat Glomerular Filtration Rate 24 BUN/Creatinine Ratio 14 Glucose Level 190 H 70-105 MG/DL Calcium Level 9.2 8.5-10.1 MG/DL Corrected Calcium 9.0 8.5-10.1 MG/DL Total Bilirubin 0.6 0.1-1.0 MG/DL Aspartate Amino Transf (AST/SGOT) 27 5-34 U/L Alanine Aminotransferase (ALT/SGPT) 22 0-55 U/L Alkaline Phosphatase 99 40-136 U/L C-Reactive Protein High Sensitivity 0.43 0.00-0.50 MG/DL B-Type Natriuretic Peptide < 10.0 <100.0 PG/ML Total Protein 8.0 6.4-8.2 GM/DL Albumin 4.2 3.2-4.5 GM/DL Coronavirus (COVID-19)(PCR) Negative Negative Prothrombin Time 13.1 12.2-14.7 SEC INR Comment 1.0 0.8-1.4 Activated Partial Thromboplast Time 30 24-35 SEC Magnesium Level 1.5 L 1.6-2.4 MG/DL Myoglobin 310.2 H 10.0-92.0 NG/ML Troponin I 0.067 H <0.028 NG/ML Urine Color YELLOW Urine Clarity SL CLOUDY Urine pH 6.5 5-9 Urine Specific Wood 1.015 L 1.016-1.022 Urine Protein 2+ H NEGATIVE Urine Glucose (UA) NEGATIVE NEGATIVE Urine Ketones NEGATIVE NEGATIVE Urine Nitrite NEGATIVE NEGATIVE Urine Bilirubin NEGATIVE NEGATIVE Urine Urobilinogen 1.0 < = 1.0 MG/DL Urine Leukocyte Esterase NEGATIVE NEGATIVE Urine RBC (Auto) NEGATIVE NEGATIVE Urine RBC NONE /HPF Urine WBC NONE /HPF Urine Squamous Epithelial Cells RARE /HPF Urine Crystals NONE /LPF Urine Bacteria NEGATIVE /HPF Urine Casts NONE /LPF Urine Mucus NEGATIVE /LPF Urine Culture Indicated NO Test 10/16/19 16:05 10/16/19 17:43 Range/Units Troponin I 0.070 H <0.028 NG/ML Glucometer 176 H 70-110 MG/DL Micro Results Microbiology 10/16/19 Influenza Types A,B Antigen (MÓNICA) - Final, Complete My Orders Orders - BRITTANY JACKSON MD Cbc With Automated Diff (10/16/19 06:44) Comprehensive Metabolic Panel (10/16/19 06:44) Hs C Reactive Protein (10/16/19 06:44) Ua Culture If Indicated (10/16/19 06:44) Ed Iv/Invasive Line Start (10/16/19 06:44) Magnesium (10/16/19 07:53) Chest 1 View, Ap/Pa Only (10/16/19 07:53) Ekg Tracing (10/16/19 07:53) Myoglobin Serum (10/16/19 07:53) Protime With Inr (10/16/19 07:53) Partial Thromboplastin Time (10/16/19 07:53) Monitor-Rhythm Ecg Trace Only (10/16/19 07:53) Lipid Panel (10/17/19 06:00) Troponin I (10/16/19 07:53) Influenza A And B Antigens (10/16/19 07:53) Coronavirus Sars-Cov-2 So 2018 (10/16/19 07:53) Ondansetron Injection (Zofran Injectio (10/16/19 08:45) BNP (10/16/19 08:46) Magnesium Oxide Tablet (Mag Ox Tablet) (10/16/19 09:00) Labetalol Injection (Normodyne Injection (10/16/19 09:00) Ns Iv 1000 Ml (Sodium Chloride 0.9%) (10/16/19 08:48) Clopidogrel Tablet (Plavix Tablet) (10/16/19 13:00) Metoprolol Succinate (Xl) Tab (Toprol Xl (10/16/19 13:00) Medications Given in ED Current Medications Medications Dose Ordered Sig/Rufino Route Start Time Stop Time Status Last Admin Dose Admin Clopidogrel Bisulfate 75 mg ONCE ONCE PO 10/16/19 13:00 10/16/19 13:01 DC 10/16/19 13:40 75 MG Labetalol HCl 10 mg ONCE ONCE IV 10/16/19 09:00 10/16/19 09:01 DC 10/16/19 09:00 10 MG Magnesium Oxide 400 mg ONCE ONCE PO 10/16/19 09:00 10/16/19 09:01 DC 10/16/19 09:04 400 MG Ondansetron HCl 8 mg ONCE ONCE IVP 10/16/19 08:45 10/16/19 08:46 DC 10/16/19 08:58 8 MG Sodium Chloride 1,000 ml @ 0 mls/hr Q0M ONCE IV 10/16/19 08:48 10/16/19 08:49 DC 10/16/19 09:03 1,000 MLS/HR Vital Signs/I&O 10/16/19 10/16/19 10/16/19 10/16/19 07:26 13:40 13:50 14:00 Temp 36.9 37.0 36.4 Pulse 74 59 59 Resp 16 16 20 B/P (MAP) 182/102 (128) 166/80 170/80 Pulse Ox 97 99 98 98 O2 Delivery Room Air Room Air Room Air Room Air 10/16/19 16:00 Temp 36.4 Pulse 59 Resp 20 B/P (MAP) 170/80 (110) Pulse Ox 98 O2 Delivery Room Air Capillary Refill : Less Than 3 Seconds Blood Pressure Mean: 128 Progress Note #1: Time: 12:59 Progress Note Patient was seen and examined. Labs, x-ray and EKG assessed. Patient has persistently slightly elevated troponin. Blood pressure did gradually drop without specific intervention. This may been due to patient taking his home medications just prior to arrival. Patient also took a full aspirin this morning. COVID-19 swab was obtained due to his community exposures and symptoms that include shortness of breath, nausea, and chills. He will be a PUI. He is feeling better after these interventions and a liter of IV fluid. Case was discussed with Dr. Galvez who recommended admission as well as treating with Plavix and Toprol-XL 100 mg by mouth 1 now. Progress Note #2: Time: 18:20 Progress Note Patient has had a persistently elevated troponin and problems with blood pressure in association with symptoms of shortness of breath, nausea, back pain, etc. Case was discussed with Dr. Batista who recommended admission. He recommended Toprol-XL 100 mg orally and Plavix 75 mg orally before admission. COVID screening swab was collected. ECG Initial ECG Impression Date: Oct 16, 2019 Initial ECG Impression Time: 07:10 Initial ECG Rate: 72 Initial ECG Rhythm: Normal Sinus Initial ECG Intervals: Normal Comment Normal sinus rhythm with no ST elevation or depression. No abnormal intervals. LVH by automated read. Diagnostic Imaging Diagonstic Imaging: Xray Plain Films/CT/US/NM/MRI: chest Comments NAME: DOMINICK ARELLANO [facility] REC#: [id number] PT STATUS: REG ER : 1950 PHYSICIAN: BRITTANY JACKSON MD ADMIT DATE: 10/16/19/ER Draft Date of Exam:10/16/19 CHEST 1 VIEW, AP/PA ONLY INDICATION: Fever and chills, shortness of breath. TIME OF EXAM: 8:41 AM. COMPARISON: 10/12/2019. FINDINGS: The heart size is normal. The pulmonary vascularity is unremarkable. The lungs are clear. No infiltrate, effusion, or pneumothorax is detected. IMPRESSION: No acute cardiopulmonary process is detected. Dictated on workstation # [id number] Dict: 10/16/19 0850 Trans: 10/16/19 0853 [id number] Interpreted by: LAUREN MALLORY MD Departure Communication (Admissions) Time/Spoke to Admitting Phy: 12:45 Dr. Knutson Time/Spoke to Consulting Phy: 12:30 Dr. Galvez Impression Primary Impression: Hypertensive urgency Additional Impressions: Flu-like symptoms Elevated troponin Disposition: ADMITTED INPATIENT Condition: Improved Admissions Decision to Admit Reason: Admit from ER (General) Decision to Admit/Date: Oct 16, 2019 Time/Decision to Admit Time: 12:30 Departure-Patient Inst. Referrals: STEVEN FINN MD (PCP/Family) Primary Care Physician Copy Copies To 1: STEVEN FINN MD, JOSHUA T MD Oct 16, 2019 12:19
[2019-10-16] MEDS ORDERED: CLOPIDOGREL 75 MG (PLAVIX) TABLET PO ONE (13:00)
[2019-10-16] MEDS ORDERED: meTOprolol SUCCINATE 100 MG (TOPROL XL) TAB PO ONE (13:00)
[2019-10-16] MEDS ORDERED: meTOproloL SUCCINATE 50 MG (TOPROL XL) TAB PO ONE (13:36)
--- NOTE | 2019-10-16 13:40 | NUR ---
DOMINICK ARELLANO JR admitted to room 433-1, with an admitting diagnosis of HTN, on 10/16/19 from ED via W/C, accompanied by STAFF.DOMINICK ARELLANO JR introduced to surroundings, call light, bed controls, phone, TV, temperature control, lights, meal times, smoking policy, visitor policy, side rail policy, bathrooms and showers. Patient Rights given to patient in the handbook. DOMINICK ARELLANO JR verbalizes understanding that [facility] is not responsible for the loss or damage to any personal effects or valuables that are kept in the patients posession during their hospitalization.
[2019-10-16] MEDS ORDERED: meTOproloL SUCCINATE 50 MG (TOPROL XL) TAB PO SCH (13:45)
[2019-10-16 14:00] VITALS: BP 170/80
[2019-10-16] MEDS ORDERED: ONDANSETRON 4 MG/2 ML (SDV) Z0FRAN IV PRN ×2 (14:15→17:15)
[2019-10-16 16:00] VITALS: BP 170/80
--- NOTE | 2019-10-16 16:00 | NUR ---
RECEIVED CALL FROM MAURICIO AT DR BEAL'S OFFICE, SHE SAID SHE HAD PUT IN NEW ORDERS FOR PT AND NOT TO START COZAAR, LASIX OR CLONIDINE THAT WAS ON HIS MED REC. DR ROGERS NOTIFIED WELL
[2019-10-16] MEDS ORDERED: amLODIPine 10 MG (NORVASC) TAB PO NR (16:45)
[2019-10-16] MEDS ORDERED: polyethylene glycoL POWDER 17 GM (MIRALAX) PACK PO PRN (17:15)
[2019-10-16] MEDS ORDERED: diphenhydrAMINE 25 MG TAB (BENADRYL) PO PRN (17:15)
[2019-10-16] MEDS ORDERED: hydrALAZINE (APESOLINE) 20 MG/ML VIAL IV PRN (17:15)
[2019-10-16] MEDS ORDERED: BISACODYL 10 MG SUPP (DULCOLAX) PR PRN (17:15)
[2019-10-16] MEDS ORDERED: ONDANSETRON 4 MG (ZOFRAN) ORAL DISSOLVE TAB PO PRN (17:15)
[2019-10-16] MEDS ORDERED: PATIENT MAY USE OWN MEDS, ALL PO SCH (17:15)
[2019-10-16] MEDS ORDERED: MELATONIN 3 MG TABLET PO PRN (17:15)
[2019-10-16] MEDS ORDERED: ACETAMINOPHEN 325 MG TABLET PO PRN (17:15)
[2019-10-16] MEDS ORDERED: FUROSEMIDE 20 MG (LASIX) TAB PO NR (17:15)
[2019-10-16] MEDS ORDERED: ANTACID SUSP 30 ML UDC (MYLANTA) PO PRN (17:15)
[2019-10-16] MEDS ORDERED: ZOLPIDEM 5 MG (AMBIEN) TAB PO PRN (17:15)
[2019-10-16] MEDS ORDERED: MAGNESIUM 1 GM/100 ML IVPB 100 ML IV NR (17:30)
[2019-10-16] MEDS: inSUlin ASPART (NovoLOG) 1 UNIT/0.01 ML (CHARGE PER UNIT) SC SCH ×2 (17:58→21:16)
[2019-10-16] MEDS: MAGNESIUM 1 GM/100 ML IVPB 100 ML IV SCH ×2 (17:58→19:38)
--- NOTE | 2019-10-16 18:38 | NUR ---
PTS COVID [address] ROGERS REPORT TO THIS NURSE. DR ROGERS ORDERED FOR PT TO CHANGE ROOMS, OUT OF ISOLATION. PT IS NOW STANDARD PRECAUTIONS. PT NOTIFIED OF NEGATIVE RESULT BY DR ROGERS WELL. PT MOVED TO ROOM 401.
[2019-10-16 19:09] VITALS: BP 180/81
[2019-10-16] MEDS ORDERED: doxAzosin 4 MG (CARDURA) TAB PO SCH (21:00)
[2019-10-16] MEDS: CARVEDILOL 12.5 MG (COREG) TABLET PO SCH (21:02)
--- NOTE | 2019-10-16 21:02 | NUR ---
b/p180/81 hr [address] feldman about pt cardiac medications this rn informed dr. feldman about pt cardiac medications that were given today & what was ordered tonight, along with pt vital signs. this rn was ordered to hold coreg 12.5mg & give the ordered cardura 2mg.
[2019-10-16] MEDS: doxAzosin 2 MG (CARDURA) TAB PO SCH (21:14)
[2019-10-16] MEDS: DOCUSATE SODIUM 100 MG (COLACE) CAP PO SCH (21:15)
[2019-10-16] MEDS: SENNOSIDES 8.6 MG (SENOKOT) TAB PO SCH (21:15)
[2019-10-16] MEDS: CATHETER FLUSH 10 ML SYR IV SCH (21:17)
--- NOTE | 2019-10-16 21:26 | History & Physical-Hospitalist ---
History of Present Illness HPI/Chief Complaint Fredis Kasper Jr is a 69 year old male with PMH HTN, T2DM, CKD, COPD, gout, GERD, seasonal allergies, who presented with elevated blood pressure. He reports that he had been checking his blood pressure at home and it was 240/110 this morning. He had been in the emergency room a couple days ago and was given Clonidine. He has taken it for the past couple days. He denies missing any of his medications. He denies any high-sodium intake. He reports feeling "funny" this morning. He reports an abnormal sense of taste. He reports a feeling of "heaviness" in his left shoulder/back. He reports nausea. He reports chills. He denies fever. He denies shortness of breath. He denies abdominal pain. He denies diarrhea and constipation. He denies dysuria. He denies rash. He has no other complaints or concerns. He has a history of CKD but does not see a roving inspector. Source: patient Exam Limitations: no limitations Date Seen 10/16/19 Time Seen by a Provider: 16:15 Attending Physician Denisse Rogers MD PCP Abebe Ferreira MD Referring Physician Date of Admission Oct 16, 2019 at 13:31 Home Medications & Allergies Home Medications Reviewed patient Home Medication Reconciliation performed by pharmacy medication reconciliations inspector technician and/or nursing. Patients Allergies have been reviewed. Allergies Allergies Coded Allergies levofloxacin (Verified Allergy, Unknown, 04/20/15) metformin (Verified Allergy, Unknown, 04/20/15) Past Luazsvg-Ykfzls-Toacry Hx Past Med/Social Hx: Reviewed Nursing Past Med/Soc Hx Patient Social History Alcohol Use: Denies Use Recreational Drug Use: No 2nd Hand Smoke Exposure: No Recent Foreign Travel: No Contact w/other who traveled: No Recent Hopitalizations: No Recent Infectious Disease Expo: No Immunizations Up To Date Tetanus Booster (TDap): Less than 5yrs Date of Pneumonia Vaccine: Feb 05, 2019 Date of Influenza Vaccine: Feb 20, 2015 Seasonal Allergies Seasonal Allergies: Yes Past Medical History Surgeries: Abdominal, Cardiac, Coronary Stent, Orthopedic Currently Using CPAP: No Currently Using BIPAP: No Cardiac: Chronic Edema/Swelling, Coronary Artery Disease, Heart Attack, High Cholesterol, Hypertension Neurological: Neuropathy Reproductive: No Sexually Transmitted Disease: No HIV/AIDS: No Genitourinary: Renal Failure Gastrointestinal: Gastroesophageal Reflux, Hepatitis Musculoskeletal: Arthritis, Back Injury, Gout Endocrine: Diabetes, Insulin dep Loss of Vision: Denies Hearing Impairment: Hearing Aide Right History of Blood Disorders: No Adverse Reaction to Blood [place]rington: No Family History Patient reports no known family medical history. No Pertinent Family Hx Review of Systems Constitutional: chills EENTM: no symptoms reported Respiratory: cough Cardiovascular: no symptoms reported Gastrointestinal: nausea Genitourinary: no symptoms reported Musculoskeletal: back pain Skin: no symptoms reported Psychiatric/Neurological: No Symptoms Reported Physical Exam Physical Exam Vital Signs Vital Signs - First Documented 10/16/19 07:26 Temp 36.9 Pulse 74 Resp 16 B/P (MAP) 182/102 (128) Pulse Ox 97 O2 Delivery Room Air Capillary Refill : Less Than 3 Seconds Height, Weight, BMI Height: 6'1.00" Weight: 235lbs. 6.0oz. [id number]; 32.30 BMI Method:Stated General Appearance: No Apparent Distress, WD/WN HEENT: PERRL/EOMI, Pharynx Normal Neck: Normal Inspection, Supple Respiratory: Lungs Clear, Normal Breath Sounds, No Respiratory Distress Cardiovascular: Regular Rate, Rhythm, No Edema, No Murmur Gastrointestinal: Normal Bowel Sounds, Non Tender, Soft Extremity: Normal Inspection, Non Tender, Pedal Edema Neurologic/Psychiatric: Alert, Oriented x3, No Motor/Sensory Deficits, Normal Mood/Affect Skin: Normal Color, Warm/Dry Results Results/Procedures Labs Laboratory Tests 10/16/19 07:10 Patient resulted labs reviewed. Imaging: Reviewed Imaging Report Assessment/Plan Admission Diagnosis Hypertensive urgency Admission Status: Observation Assessment and Plan Hypertensive urgency Elevated troponin -BP 182/102 on arrival, reportedly 240/110 at home -Continue doxazosin and spironolactone -Hold Lasix -Add Amlodipine and Coreg -Hydralazine as needed -Troponin 0.067 on arrival -Cardiology consulted, appreciate assistance CKD -Creatinine 3.16 on arrival, slightly worse than prior but near baseline -Avoid nephrotoxins as able -Continue to monitor Cough -COVID negative DVT Prophylaxis: Heparin Diagnosis/Problems Diagnosis/Problems (1) Hypertensive urgency Status: Acute (2) Elevated troponin Status: Acute (3) CKD (chronic kidney disease) Status: Chronic Qualifiers: Chronic kidney disease stage: stage 4 (severe) Qualified Codes: N18.4 - Chronic kidney disease, stage 4 (severe) Clinical Quality Measures DVT/VTE Risk/Contraindication: Risk Factor Score Per Nursin RFS Level Per Nursing on Admit: 4+=Very High DENISSE ROGERS MD Oct 16, 2019 21:26
[2019-10-17] VITALS (8 sets, daily range): BP systolic 156–188; BP diastolic 79–95
[2019-10-17] MEDS: inSUlin ASPART (NovoLOG) 1 UNIT/0.01 ML (CHARGE PER UNIT) SC SCH ×4 (05:37→20:57)
--- NOTE | 2019-10-17 06:51 | NUR ---
THIS RN CONTACTED DR. ROGERS CLARIFYING THE LASIX ORDER. CARDIOLOGY HAS ORDERS TO NOT START LASIX BUT DR. ROGERS WROTE TO START LASIX THIS AM. ORDER RECEIVED TO DC LASSYDNEE
[2019-10-17] MEDS: CATHETER FLUSH 10 ML SYR IV SCH ×3 (06:55→20:58)
[2019-10-17] MEDS ORDERED: FUROSEMIDE 20 MG (LASIX) TAB PO SCH (07:00)
[2019-10-17 07:01] LABS: ALBUMIN 3.8 GM/DL (3.2-4.5); POTASSIUM 4.2 MMOL/L (3.6-5.0)
[2019-10-17 07:02] LABS: CALCIUM 9.2 MG/DL (8.5-10.1)
[2019-10-17 07:04] LABS: TOTAL PROTEIN 7.4 GM/DL (6.4-8.2)
[2019-10-17 07:05] LABS: BILIRUBIN,TOTAL 0.5 MG/DL (0.1-1.0)
[2019-10-17 07:07] LABS: CREATININE SERUM 2.9 MG/DL (0.60-1.30)
[2019-10-17 07:10] LABS: MAGNESIUM 1.9 MG/DL (1.6-2.4)
[2019-10-17] MEDS: POTASSIUM CL 10MEQ/50ML IVPB 50 ML IV SCH (07:12)
[2019-10-17] MEDS: MAGNESIUM 1 GM/100 ML IVPB 100 ML IV SCH (07:12)
[2019-10-17] MEDS: KCL 20 MEQ TAB (K-DUR) PO SCH (07:13)
--- NOTE | 2019-10-17 07:59 | Consultation-Cardiology ---
HPI-Cardiology Cardiology Consultation: Date of Consultation 10/17/19 Time Seen by a Provider: 08:10 Date of Admission 10-16-2019 Attending Physician Denisse Knutson MD Admitting Physician Abebe Ferreira MD Consulting Physician Jaquelin Galvez MD HPI: Chief Complaint: Uncontrolled HTN Mr. Arellano is a 69 year old male admitted to [facility] from the ED. He reports for the last few days he has generally been feeling unwell. He reports his PCP has been making adjustments to his anti-hypertensive regimen d/t worsening renal function. He states he is waiting to see a automobile repair service estimator at [facility] in [place], [place]. He reports he has been wearing his CPAP faithfully, except for one night this week. He reports he has been having chills at night the last few nights. He reports yesterday morning he woke up around 5 a.m. feeling nauseated and "woozy". He also reports pain, which felt like someone had their fist pushing in between his shoulder blades. He reports the discomfort was constant. Mild to mod in intensity. He states the discomfort lasted approx 30 minutes. He denies any ACW discomfort. He denies any LE swelling. He states his BP has been high at home the last few mornings, readings in the 180's systolic. He states yesterday morning he checked his BP and it was 220 systolic. He then drove himself to the ED for eval. He denies any fever. No c/o vomiting or diarrhea. He states he has had a recent u/s on his kidneys. He currently is not reporting any discomfort and states he feels much better. Review of Systems-Cardiology Review of Systems Constitutional: chills; No fever; lightheadedness Eyes: No vision change Ears/Nose/Throat: No epistaxis, No recent hearing loss Respiratory: As described under HPI Cardiovascular: As described under HPI Gastrointestinal: No constipation, No diarrhea; nausea; No vomiting Genitourinary: No dysuria, No hematuria Musculoskeletal: no symptoms reported Skin: No rash on exposed areas, No ulcerations on exposed areas Psychiatric/Neurological: No anxiety, No depression, No seizure, No focal weakness, No syncope Hematologic: No bleeding abnormalities JQG-Gkuzsz-Pafcia Hx Patient Social History Alcohol Use: Denies Use Recreational Drug Use: No Former smoker/When Quit: Oct 15, 1975 2nd Hand Smoke Exposure: No Recent Foreign Travel: No Recent Infectious Disease Expo: No Immunizations Up To Date Tetanus Booster (TDap): Less than 5yrs Date of Pneumonia Vaccine: Feb 05, 2019 Date of Influenza Vaccine: Feb 20, 2015 Past Medical History PMH As described under Assessment. Family Medical History Family Medical History: He reports a family h/o of mother having HTN and CAD. His father had CAD. Family History: Patient reports no known family medical history. Allergies and Home Medications Allergies Coded Allergies: levofloxacin (Verified Allergy, Unknown, 04/20/15) metformin (Verified Allergy, Unknown, 04/20/15) Home Medications Acetaminophen 500 Mg Tablet, 500-1,000 MG PO HS PRN for PAIN-MODERATE (5-7), (Re ported) Allopurinol 300 Mg Tablet, 300 MG PO DAILY, (Reported) Aspirin 325 Mg Tablet.dr, 325 MG PO DAILY, (Reported) Atorvastatin Calcium 80 Mg Tablet, 80 MG PO HS, (Reported) Cetirizine HCl 10 Mg Tablet, 10 MG PO DAILY, (Reported) Clonidine HCl 0.1 Mg Tablet, 0.1 MG PO BID, (Reported) Doxazosin Mesylate 4 Mg Tablet, 2 MG PO BID, (Reported) TAKES OF 4MG TWICE DAILY Furosemide 40 Mg Tablet, 20 MG PO BID, (Reported) TAKES OF A 40 MG TAB TWICE DAILY Glimepiride 4 Mg Tablet, 4 MG PO BID, (Reported) Insulin Aspart 100 Unit/1 Ml Insuln.pen, 6-10 UNIT SQ TIDAC, (Reported) RX SAYS 6 UNITS BUT CAN INCREASE UP TO 10 UNITS IF NEEDED Insulin Detemir 100 Unit/1 Ml Insuln.pen, 35 UNIT SQ DAILY, (Reported) Insulin Detemir 100 Unit/1 Ml Insuln.pen, 40 UNIT SQ HS, (Reported) Loratadine 10 Mg Tablet, 10 MG PO DAILY, (Reported) Magnesium Oxide 400 Mg Tablet, 400 MG PO BID, (Reported) Nitroglycerin 0.4 Mg Tab.subl, 0.4 MG SL UD PRN for CHEST PAIN, (Reported) Omeprazole 20 Mg Capsule.dr, 20 MG PO BIDAC, (Reported) Oxybutynin Chloride 5 Mg Tablet, 5-10 MG PO HS, (Reported) TAKES 1-2 (5MG) TABS Polyethylene Glycol 3350 17 Gm Powd.pack, 17 GM PO DAILY PRN for CONSTIPATION- 2ND LINE, (Reported) Sennosides/Docusate Sodium 1 Each Tablet, 2 EACH PO HS PRN for CONSTIPATION-6TH LINE, (Reported) Spironolactone 50 Mg Tablet, 50 MG PO DAILY, (Reported) Triamcinolone Acet 15 Gm Cr, 1 APPLIC TOP BID PRN for RASH/YEAST, (Reported) APPLY TO THE UNDER ARMS, GROIN AND BACK Patient Home Medication List Home Medication List Reviewed: Yes Physical Exam-Cardiology Physical Exam Vital Signs/I&O 10/17/19 10/17/19 10/17/19 10/18/19 20:43 22:41 23:10 01:00 Pulse 66 68 71 B/P (MAP) 188/86 (120) 178/80 (112) Pulse Ox 97 O2 Delivery Room Air 10/18/19 10/18/19 10/18/19 10/18/19 01:11 02:51 04:15 06:09 Temp 36.8 36.8 Pulse 67 62 62 Resp 20 18 B/P (MAP) 168/80 (109) 156/82 (106) 170/82 (111) Pulse Ox 95 98 94 O2 Delivery Room Air Room Air Room Air 10/18/19 10/18/19 07:01 08:03 Temp 36.8 Pulse 61 63 Resp 20 B/P (MAP) 165/96 (119) Pulse Ox 97 O2 Delivery Room Air 10/18/19 00:00 Intake Total 1050 ml Balance 1050 ml Capillary Refill : Less Than 3 Seconds Constitutional: AAO x 3, well-developed, well-nourished HEENT: PERRL, hearing is well preserved, oral hygience is good Neck: No carotid bruit; carotid pulses are 2 + bilaterally Respiratory: No accessory muscle use, No respiratory distress; chest expansion is symmetric, chest is bilaterally symmetric, lungs clear to auscultation Cardiovascular: regular rate-rhythm; No JVD; S1 and S2 Gastrointestinal: No tender; soft, round, audible bowel sounds Extremities: no lower extremity edema bilateral Neurologic/Psychiatric: grossly intact (moves all extremities) Skin: No rash on exposed areas, No ulcerations on exposed areas Data Review Labs Laboratory Tests 10/17/19 11:13: Glucometer 161H 10/17/19 15:43: Glucometer 144H 10/17/19 20:24: Glucometer 187H 10/18/19 05:16: Glucometer 127H 10/18/19 05:31: White Blood Count 9.0, Red Blood Count 4.99, Hemoglobin 14.6, Hematocrit 45, Mean Corpuscular Volume 90, Mean Corpuscular Hemoglobin 29, Mean Corpuscular Hemoglobin Concent 33, Red Cell Distribution Width 14.4, Platelet Count 216, Mean Platelet Volume 11.6H, Sodium Level 139, Potassium Level 4.3, Chloride L evel 107, Carbon Dioxide Level 21, Anion Gap 11, Blood Urea Nitrogen 44H, Creatinine 2.70H, Estimat Glomerular Filtration Rate 29, BUN/Creatinine Ratio 16, Glucose Level 130H, Calcium Level 9.5 Microbiology 10/16/19 Influenza Types A,B Antigen (MÓNICA) - Final, Complete Radiology NAME: DOMINICK ARELLANO JR [facility] REC#: [id number] PT STATUS: ADM Sea : 1950 PHYSICIAN: BRITTANY JACKSON MD ADMIT DATE: 10/16/19 Signed Date of Exam:10/16/19 CHEST 1 VIEW, AP/PA ONLY INDICATION: Fever and chills, shortness of breath. TIME OF EXAM: 8:41 AM. COMPARISON: 10/12/2019. FINDINGS: The heart size is normal. The pulmonary vascularity is unremarkable. The lungs are clear. No infiltrate, effusion, or pneumothorax is detected. IMPRESSION: No acute cardiopulmonary process is detected. Dictated by: Dictated on workstation # [id number] Dict: 10/16/19 0850 Trans: 10/16/19 1544 [id number] Interpreted by: LAUREN MALLORY MD Electronically signed by: LAUREN MALLORY MD 10/16/19 1544 ECG Impression ECG Initial ECG Rhythm: Normal Sinus A/P-Cardiology Assessment/Admission Diagnosis Uncontrolled HTN Chest discomfort/dizziness and SOB of undetermined etiology Mildly elevated troponin likely type 2 secondary to acute renal failure/uncontrolled HTN, however NSTEMI can not be ruled out Acute on chronic renal failure Coronary artery disease with history of coronary artery stenting with Promus 3.5 x 23-mm stent in 2008, stable on subsequent cardiac catheterization of June 2010. MPI of March 06, 2018 showed no evidence of singiiviant myocardial ischemia or infarction. Normal regional wall motion. LVEF 53% Echocardiogram from Mar 28, 2018 showed LVEF 65-70%. Grade 1 diastolic dysfunction. Mild AoR. PASP approx 25 mmHg Renal u/s of 10-14-2019. Bilateral renal cystic disease. No calculus or hydronephrosis is detected. Probable bladder calculus. Maturity onset diabetes mellitus, insulin requiring. Chronic kidney disease stage 4 which is being followed by Dr. Ferreira Intolerance to BUCKY-inhib due to cough. Not suitable candidate for BUCKY or ARB d/t worsening renal function Gastroesophageal reflux. Degenerative joint disease. Sleep apnea - C-PAP therapy for which he follows with Dr. Venegas Vertigo - suspected Meniere's dz being treated with Lasix per his ENT physician at [facility] Discussion and Recomendations Uncontrolled HTN - adjust regimen as noted below Non-specific chest discomfort/SOB/dizziness Mildly elevated troponin which could be Type 2 VA secondary acute on chronic renal failure/uncontrolled HTN, however cardiac cause can not be ruled out, therefore advise MPI to eval perfusion CKD stage 4 with worsening renal function - we will stop ARB and diuretics Add Norvasc to regimen for BP control Continue BB Stop Clonidine d/t risk of bradycardia with concomitant use of BB and Clonidine Increase Doxazosin Echocardiogram to eval structure and function Monitor lab closely Further recs will be based on his hospital course We would like to thank medical services for this consult I have spoken with Dr. Knutson of medical services today Clinical Quality Measures DVT/VTE Risk/Contraindication: Risk Factor Score Per Nursin RFS Level Per Nursing on Admit: 4+=Very High MAURICIO PARKER Oct 17, 2019 07:59
[2019-10-17] MEDS: CARVEDILOL 12.5 MG (COREG) TABLET PO SCH ×2 (08:03→20:48)
[2019-10-17] MEDS ORDERED: LORA10TA7 PO (08:43)
[2019-10-17] MEDS ORDERED: ASPI325T32 PO (08:43)
[2019-10-17] MEDS ORDERED: MAGN400T39 PO (08:43)
[2019-10-17] MEDS ORDERED: DOXA4TAB2 PO (08:43)
[2019-10-17] MEDS ORDERED: SPIR50TA4 PO (08:43)
[2019-10-17] MEDS ORDERED: CLON0.1T PO (08:43)
[2019-10-17] MEDS ORDERED: GLIM4TAB5 PO (08:43)
[2019-10-17] MEDS ORDERED: ACET-2267 PO (08:43)
[2019-10-17] MEDS ORDERED: FURO40TA4 PO (08:43)
[2019-10-17] MEDS ORDERED: SENN-145 PO (08:43)
[2019-10-17] MEDS ORDERED: ALLO300T2 PO (08:43)
[2019-10-17] MEDS ORDERED: NITR0.4T39 SL (08:43)
[2019-10-17] MEDS ORDERED: OXYB5TAB13 PO (08:43)
[2019-10-17] MEDS ORDERED: CETI10TA17 PO (08:43)
[2019-10-17] MEDS ORDERED: POLY17PO6 PO (08:43)
[2019-10-17] MEDS ORDERED: OMEP20CA18 PO (08:43)
[2019-10-17] MEDS ORDERED: INSU100I29 SQ ×2 (08:45→08:46)
[2019-10-17] MEDS ORDERED: INSU100I55 SQ (08:46)
[2019-10-17] MEDS ORDERED: SPIRONOLACTONE 25 MG (ALDACTONE) TAB PO SCH (09:00)
[2019-10-17] MEDS ORDERED: meTOprolol SUCCINATE 100 MG (TOPROL XL) TAB PO SCH (09:00)
[2019-10-17] MEDS: SENNOSIDES 8.6 MG (SENOKOT) TAB PO SCH ×2 (09:27→20:48)
[2019-10-17] MEDS: doxAzosin 2 MG (CARDURA) TAB PO SCH (09:27)
[2019-10-17] MEDS: DOCUSATE SODIUM 100 MG (COLACE) CAP PO SCH ×2 (09:27→20:48)
[2019-10-17] MEDS: amLODIPine 5 MG (NORVASC) TAB PO SCH (09:28)
[2019-10-17] MEDS ORDERED: CARVEDILOL 12.5 MG (COREG) TABLET PO ONE (09:30)
[2019-10-17] MEDS ORDERED: doxAzosin 4 MG (CARDURA) TAB PO SCH ×2 (09:30→21:00)
[2019-10-17] MEDS ORDERED: TR1C15 TOP (09:41)
--- NOTE | 2019-10-17 09:45 | NUR ---
SPOKE WITH THE PT (HE HAD HIS HOME MEDS) AND WENT THRU THE EXT MED HISTORY TO COMPLETE THE MED REC OMEPRAZOLE 20MG: DIRECTIONS PER VA ARE " 2 TABS AM 30 MINUTES PRIOR TO EATING" HOWEVER THE PT TAKES 1 TAB BID BEFORE MEALS FUROSEMIDE 40MG: DIRECTIONS PER VA ARE" 1 TAB DAILY" HOWEVER PT IS TAKING TAB BID THE FOLLOWING DATES ARE NOT LISTED ON THE EXT MED HISTORY: 07-31-2019 ATORVASTATIN 80MG #90/90DS 07-29-2019 LORATADINE 10MG #90/90DS OTC MEDS: ASPIRIN 325MG TYLENOL 500MG SENNA-S MIRALAX Addendum: 10/17/19 at 1423 by TIMBO LAI CPhT ALSO LOSARTAN AND GUANFACINE ER HAVE BEEN DISCONTINUED BY HIS PCP
--- NOTE | 2019-10-17 10:12 | NUR ---
DR ROGERS NOTIFIED THAT MED REC HAS BEEN COMPLETED AND Addendum: 10/17/19 at 1334 by MANJEET ORTIZ RN HOME MEDS NEED ORDERED WHEN APPROPRIATE
[2019-10-17] MEDS ORDERED: hydrALAZINE (APRESOLINE) 25 MG TAB PO NR (10:15)
--- NOTE | 2019-10-17 10:16 | Progress Note - Hospitalist ---
Subjective HPI/CC On Admission Date Seen by Provider: Oct 17, 2019 Time Seen by Provider: 09:25 Fredis Kasper Jr is a 69 year old male with PMH HTN, T2DM, CKD, COPD, gout, GERD, seasonal allergies, who presented with elevated blood pressure. He reports that he had been checking his blood pressure at home and it was 240/110 this mo rning. He had been in the emergency room a couple days ago and was given Clonidine. He has taken it for the past couple days. He denies missing any of his medications. He denies any high-sodium intake. He reports feeling "funny" this morning. He reports an abnormal sense of taste. He reports a feeling of "heaviness" in his left shoulder/back. He reports nausea. He reports chills. He denies fever. He denies shortness of breath. He denies abdominal pain. He denies diarrhea and constipation. He denies dysuria. He denies rash. He has no other complaints or concerns. He has a history of CKD but does not see a icer hand. Subjective/Events-last exam Ports feeling better today. He denies any chest pain or shortness of breath. He denies any abdominal pain, nausea, or vomiting. He denies any fevers or chills. He has no other complaints or concerns. Objective Exam Vital Signs Vital Signs Date Time Temp Pulse Resp B/P (MAP) Pulse Ox O2 Delivery O2 Flow Rate FiO2 10/17/19 08:00 36.4 56 16 173/95 (121) 96 Room Air Capillary Refill : Less Than 3 Seconds General Appearance: No Apparent Distress, WD/WN HEENT: PERRL/EOMI, Pharynx Normal Neck: Normal Inspection, Supple Respiratory: Lungs Clear, Normal Breath Sounds, No Respiratory Distress Cardiovascular: Regular Rate, Rhythm, No Edema, No Murmur Gastrointestinal: Normal Bowel Sounds, Non Tender, Soft Extremity: Normal Inspection, Non Tender, No Pedal Edema Neurologic/Psychiatric: Alert, Oriented x3, No Motor/Sensory Deficits, Normal Mood/Affect Skin: Normal Color, Warm/Dry Results/Procedures Lab Laboratory Tests 10/17/19 05:17 Patient resulted labs reviewed. Imaging: Reviewed Imaging Report Assessment/Plan Assessment and Plan Assess & Plan/Chief Complaint Hypertensive urgency Elevated troponin -BP 182/102 on arrival, reportedly 240/110 at home -Continue doxazosin, amlodipine, and Coreg -Add hydralazine -Hold Lasix and spironolactone -IV Hydralazine as needed -Troponin 0.067 on arrival -Cardiology consulted, appreciate assistance -Planning for stress test tomorrow CKD -Creatinine 3.16 on arrival, slightly improved today, near baseline -Avoid nephrotoxins as able -Continue to monitor Cough -COVID negative DVT Prophylaxis: Heparin Diagnosis/Problems Diagnosis/Problems (1) Hypertensive urgency Status: Acute (2) Elevated troponin Status: Acute (3) CKD (chronic kidney disease) Status: Chronic Qualifiers: Chronic kidney disease stage: stage 4 (severe) Qualified Codes: N18.4 - Chronic kidney disease, stage 4 (severe) Clinical Quality Measures DVT/VTE Risk/Contraindication: Risk Factor Score Per Nursin RFS Level Per Nursing on Admit: 4+=Very High JENNIFER ROGERS MD Oct 17, 2019 10:16
--- NOTE | 2019-10-17 12:51 | Consultation-Cardiology ---
HPI-Cardiology Cardiology Consultation: Date of Consultation 10/17/19 Time Seen by a Provider: 09:20 Date of Admission Attending Physician Denisse Knutson MD Admitting Physician Abebe Ferreira MD Consulting Physician BHUMI SHARMA MD, MA, FACP, FACC, FSCAI, CCDS HPI: Chief Complaint: Reason for consultation: Uncontrolled HTN, elevated troponin HPI Mr. Kasper is a 69 year old male admitted to [facility] from the ED. He reports for the last few days he has generally been feeling unwell. He reports his PCP has been making adjustments to his anti-hypertensive regimen d/t worsening renal function. He states he is waiting to see a blackjack pit boss at [facility] in [place], [place]. He reports he has been wearing his CPAP faithfully, except for one night this week. He reports he has been having chills at night the last few nights. He reports yesterday morning he woke up around 5 a.m. feeling nauseated and "woozy". He also reports pain, which felt like someone had their fist pushing in between his shoulder blades. He reports the discomfort was constant. Mild to mod in intensity. He states the discomfort lasted approx 30 minutes. He denies any ACW discomfort. He denies any LE swelling. He states his BP has been high at home the last few mornings, readings in the 180's systolic. He states yesterday morning he checked his BP and it was 220 systolic. He then drove himself to the ED for eval. He denies any fever. No c/o vomiting or diarrhea. He states he has had a recent u/s on his kidneys. He currently is not reporting any discomfort and states he feels much better. Review of Systems-Cardiology Review of Systems Constitutional: chills; No fever; lightheadedness Eyes: No vision change Ears/Nose/Throat: No epistaxis, No recent hearing loss Respiratory: As described under HPI Cardiovascular: As described under HPI Gastrointestinal: No constipation, No diarrhea; nausea; No vomiting Genitourinary: No dysuria, No hematuria Musculoskeletal: no symptoms reported Skin: No rash on exposed areas, No ulcerations on exposed areas Psychiatric/Neurological: No anxiety, No depression, No seizure, No focal weakness, No syncope Hematologic: No bleeding abnormalities FNY-Qrjhwz-Gmycrz Hx Patient Social History Alcohol Use: Denies Use Recreational Drug Use: No Former smoker/When Quit: Oct 15, 1975 2nd Hand Smoke Exposure: No Recent Foreign Travel: No Recent Infectious Disease Expo: No Immunizations Up To Date Tetanus Booster (TDap): Less than 5yrs Date of Pneumonia Vaccine: Feb 05, 2019 Date of Influenza Vaccine: Feb 20, 2015 Past Medical History PMH As described under Assessment. Family Medical History Family Medical History: He reports a family h/o of mother having HTN and CAD. His father had CAD. Family History: Patient reports no known family medical history. Allergies and Home Medications Allergies Coded Allergies: levofloxacin (Verified Allergy, Unknown, 04/20/15) metformin (Verified Allergy, Unknown, 04/20/15) Home Medications Acetaminophen 500 Mg Tablet, 500-1,000 MG PO HS PRN for PAIN-MODERATE (5-7), (Reported) Allopurinol 300 Mg Tablet, 300 MG PO DAILY, (Reported) Aspirin 325 Mg Tablet.dr, 325 MG PO DAILY, (Reported) Atorvastatin Calcium 80 Mg Tablet, 80 MG PO HS, (Reported) Cetirizine HCl 10 Mg Tablet, 10 MG PO DAILY, (Reported) Clonidine HCl 0.1 Mg Tablet, 0.1 MG PO BID, (Reported) Doxazosin Mesylate 4 Mg Tablet, 2 MG PO BID, (Reported) TAKES OF 4MG TWICE DAILY Furosemide 40 Mg Tablet, 20 MG PO BID, (Reported) TAKES OF A 40 MG TAB TWICE DAILY Glimepiride 4 Mg Tablet, 4 MG PO BID, (Reported) Insulin Aspart 100 Unit/1 Ml Insuln.pen, 6-10 UNIT SQ TIDAC, (Reported) RX SAYS 6 UNITS BUT CAN INCREASE UP TO 10 UNITS IF NEEDED Insulin Detemir 100 Unit/1 Ml Insuln.pen, 35 UNIT SQ DAILY, (Reported) Insulin Detemir 100 Unit/1 Ml Insuln.pen, 40 UNIT SQ HS, (Reported) Loratadine 10 Mg Tablet, 10 MG PO DAILY, (Reported) Magnesium Oxide 400 Mg Tablet, 400 MG PO BID, (Reported) Nitroglycerin 0.4 Mg Tab.subl, 0.4 MG SL UD PRN for CHEST PAIN, (Reported) Omeprazole 20 Mg Capsule.dr, 20 MG PO BIDAC, (Reported) Oxybutynin Chloride 5 Mg Tablet, 5-10 MG PO HS, (Reported) TAKES 1-2 (5MG) TABS Polyethylene Glycol 3350 17 Gm Powd.pack, 17 GM PO DAILY PRN for CONSTIPATION-2N D LINE, (Reported) Sennosides/Docusate Sodium 1 Each Tablet, 2 EACH PO HS PRN for CONSTIPATION-6TH LINE, (Reported) Spironolactone 50 Mg Tablet, 50 MG PO DAILY, (Reported) Triamcinolone Acet 15 Gm Cr, 1 APPLIC TOP BID PRN for RASH/YEAST, (Reported) APPLY TO THE UNDER ARMS, GROIN AND BACK Patient Home Medication List Home Medication List Reviewed: Yes Physical Exam-Cardiology Physical Exam Vital Signs/I&O 10/17/19 10/17/19 10/17/19 10/17/19 01:00 04:16 06:41 08:00 Temp 36.0 Pulse 55 55 58 Resp 18 B/P (MAP) 157/79 (105) Pulse Ox 96 O2 Delivery Room Air Room Air 10/17/19 10/17/19 08:00 12:00 Temp 36.4 36.3 Pulse 56 59 Resp 16 16 B/P (MAP) 173/95 (121) 160/88 (112) Pulse Ox 96 96 O2 Delivery Room Air Room Air 10/17/19 00:00 Intake Total 1877 ml Output Total 200 ml Balance 1677 ml Capillary Refill : Less Than 3 SecondsLess Than 3 Seconds Constitutional: AAO x 3, well-developed, well-nourished HEENT: PERRL, hearing is well preserved, oral hygience is good Neck: No carotid bruit; carotid pulses are 2 + bilaterally Respiratory: No accessory muscle use, No respiratory distress; chest expansion is symmetric, chest is bilaterally symmetric, lungs clear to auscultation Cardiovascular: regular rate-rhythm; No JVD; S1 and S2 Gastrointestinal: No tender; soft, round, audible bowel sounds Extremities: no lower extremity edema bilateral Neurologic/Psychiatric: grossly intact (moves all extremities) Skin: No rash on exposed areas, No ulcerations on exposed areas Data Review Labs Laboratory Tests 10/16/19 16:05: Troponin I 0.070H 10/16/19 17:43: Glucometer 176H 10/16/19 20:55: Glucometer 231H 10/17/19 05:17: Sodium Level 138, Potassium Level 4.2, Chloride Level 105, Carbon Dioxide Level 22, Anion Gap 11, Blood Urea Nitrogen 45H, Creatinine 2.90H, Estimat Glomerular Filtration Rate 26, BUN/Creatinine Ratio 16, Glucose Level 143H, Calcium Level 9.2, Corrected Calcium 9.4, Magnesium Level 1.9, Total Bilirubin 0.5, Aspartate Amino Transf (AST/SGOT) 26, Alanine Aminotransferase (ALT/SGPT) 20, Alkaline Phosphatase 88, Total Protein 7.4, Albumin 3.8, Triglycerides Level 164H, Cholesterol Level 113, LDL Cholesterol Direct 61, VLDL Cholesterol 33, HDL Cholesterol 27L, Thyroid Stimulating Hormone (TSH) 0.94 10/17/19 05:36: Glucometer 153H 10/17/19 11:13: Glucometer 161H Microbiology 10/16/19 Influenza Types A,B Antigen (MÓNICA) - Final, Complete A/P-Cardiology Assessment/Admission Diagnosis Uncontrolled HTN Chest discomfort/dizziness and SOB of undetermined etiology Mildly elevated troponin likely type 2 secondary to acute renal failure/uncontrolled HTN, however NSTEMI can not be ruled out Acute on chronic renal failure Coronary artery disease with history of coronary artery stenting with Promus 3.5 x 23-mm stent in 2008, stable on subsequent cardiac catheterization of June 2010. MPI of March 06, 2018 showed no evidence of singiiviant myocardial ischemia or infarction. Normal regional wall motion. LVEF 53% Echocardiogram from Mar 28, 2018 showed LVEF 65-70%. Grade 1 diastolic dysfunction. Mild AoR. PASP approx 25 mmHg Renal u/s of 10-15-2019. Bilateral renal cystic disease. No calculus or hydronephrosis is detected. Probable bladder calculus. Maturity onset diabetes mellitus, insulin requiring. Chronic kidney disease stage 4 which is being followed by Dr. Ferreira Intolerance to BUCKY-inhib due to cough. Not suitable candidate for BUCKY or ARB d/t worsening renal function Gastroesophageal reflux. Degenerative joint disease. Sleep apnea - C-PAP therapy for which he follows with Dr. Venegas Vertigo - suspected Meniere's dz being treated with Lasix per his ENT physician at [facility] Discussion and Recomendations * Adjust antihypertensive regimen. See orders * MPI to eval for cor ischemia * Echo to eval for structural heart disease * Monitor labs * I discussed his case with Dr Knutson today Clinical Quality Measures DVT/VTE Risk/Contraindication: Risk Factor Score Per Nursin RFS Level Per Nursing on Admit: 4+=Very High BHUMI SHARMA MD FACP FACC CCDS Oct 17, 2019 12:51
--- NOTE | 2019-10-17 13:59 | NUR ---
TOOK OVER CARE OF PATIENT AND RECEIVED REPORT FROM MANJEET DALAL
--- NOTE | 2019-10-17 14:00 | NUR ---
PER MANJEET , PER GIVE HYDRALAZINE EARLY
[2019-10-17] MEDS: hydrALAZINE (APRESOLINE) 25 MG TAB PO SCH ×2 (14:12→22:42)
[2019-10-17] MEDS ORDERED: PANTOPRAZOLE 20 MG TABLET (PROTONIX) PO SCH (16:00)
[2019-10-17] MEDS ORDERED: OMEPRAZOLE 20 MG (PriLOSEC) CAP NON-FORMULARY PO SCH (16:00)
[2019-10-17] MEDS: OMEPRAZOLE 20 MG (PriLOSEC) CAP PO SCH (16:09)
[2019-10-17] MEDS: doxAzosin 4 MG (CARDURA) TAB PO SCH (20:48)
[2019-10-17] MEDS ORDERED: OXYBUTYNIN (DITROPAN) 5 MG TAB PO SCH ×2 (21:00)
[2019-10-17] MEDS ORDERED: amLODIPine 5 MG (NORVASC) TAB PO SCH (21:00)
[2019-10-17] MEDS: RT-ALBUTEROL SULF 2.5 MG/3 ML PRE-MIX VIAL INH PRN (23:10)
--- NOTE | 2019-10-17 23:16 | NUR ---
2255-pt c/o wheezing, upon auscultation of pt lungs this rn noted slight wheezing bilaterally throughout-pt states that he has asthma & uses albuterol at home. pt requesting to have albuterol restarted. 1654-this rn contacted dr. mullen about pt concern & condition-order received.
[2019-10-18] VITALS (8 sets, daily range): BP systolic 156–184; BP diastolic 80–96
[2019-10-18] MEDS: RT-ALBUTEROL SULF 2.5 MG/3 ML PRE-MIX VIAL INH PRN (02:51)
[2019-10-18] MEDS: inSUlin ASPART (NovoLOG) 1 UNIT/0.01 ML (CHARGE PER UNIT) SC SCH ×2 (05:25→12:03)
[2019-10-18 05:59] LABS: HEMOGLOBIN 14.6 G/DL (13.3-17.7); MEAN PLATELET VOLUME 11.6 FL (7.4-10.4); RED CELL DISTRIBUTION WIDTH 14.4 % (10.0-14.5)
[2019-10-18 06:12] LABS: POTASSIUM 4.3 MMOL/L (3.6-5.0)
[2019-10-18] MEDS: hydrALAZINE (APRESOLINE) 25 MG TAB PO SCH (06:12)
[2019-10-18 06:13] LABS: CALCIUM 9.5 MG/DL (8.5-10.1)
[2019-10-18] MEDS: CATHETER FLUSH 10 ML SYR IV SCH (06:14)
[2019-10-18 06:17] LABS: CREATININE SERUM 2.7 MG/DL (0.60-1.30)
[2019-10-18] MEDS: POTASSIUM CL 10MEQ/50ML IVPB 50 ML IV SCH (06:37)
[2019-10-18] MEDS: KCL 20 MEQ TAB (K-DUR) PO SCH (06:38)
[2019-10-18] MEDS: MAGNESIUM 1 GM/100 ML IVPB 100 ML IV SCH (06:38)
[2019-10-18] MEDS: CATHETER FLUSH 10 ML SYR IV PRN ×2 (07:44→08:57)
[2019-10-18] MEDS ORDERED: REGADENOSON 0.4 MG/5 ML SYR (LEXISCAN) IV ONE ×2 (08:06→09:00)
[2019-10-18] MEDS ORDERED: LORATADINE (CLARITIN) 10 MG TAB PO SCH ×2 (09:00)
[2019-10-18] MEDS ORDERED: ASPIRIN E.C. 325 MG (ECOTRIN) TABLET PO SCH ×2 (09:00)
[2019-10-18] MEDS ORDERED: ALLOPURINOL 300 MG (ZYLOPRIM) TAB PO SCH ×2 (09:00)
[2019-10-18] MEDS ORDERED: AMLO5TAB9 PO (11:52)
[2019-10-18] MEDS ORDERED: DOXA4TAB2 PO (11:52)
[2019-10-18] MEDS ORDERED: CARV12.53 PO (11:52)
[2019-10-18] MEDS: CARVEDILOL 12.5 MG (COREG) TABLET PO SCH (11:55)
[2019-10-18] MEDS: amLODIPine 5 MG (NORVASC) TAB PO SCH (11:56)
[2019-10-18] MEDS: DOCUSATE SODIUM 100 MG (COLACE) CAP PO SCH (11:56)
[2019-10-18] MEDS: SENNOSIDES 8.6 MG (SENOKOT) TAB PO SCH (11:56)
[2019-10-18] MEDS: OMEPRAZOLE 20 MG (PriLOSEC) CAP PO SCH (12:00)
[2019-10-18] MEDS: doxAzosin 4 MG (CARDURA) TAB PO SCH (12:08)
--- NOTE | 2019-10-18 12:58 | STRESS TEST ---
DATE OF SERVICE: 10/18/2019 RESTING AND POST REGADENOSON TECHNETIUM-99M TETROFOSMIN SPECT CT IMAGING ORDERING PHYSICIAN: Meghna Ricks APRN PRIMARY PHYSICIAN: Dr. Ferreira. ATTENDING PRIMARY CARE PHYSICIAN: Dr. Knutson. CLINICAL DIAGNOSIS: Elevated troponin, chest discomfort and hypertension. Baseline images were carried out after injection of 10.57 mCi of technetium-99m Tetrofosmin. This was followed by 0.4 mg Regadenoson and 30.9 mCi of technetium-99 Tetrofosmin for stress imaging. The electrocardiogram showed sinus rhythm at baseline. It did not change significantly with the Regadenoson infusion. Review of images at rest and following stress does not indicate any significant perfusion defects consistent with significant myocardial ischemia or infarction. Gated images show normal global left ventricular systolic function with normal regional wall motion. Left ventricular ejection fraction is calculated to be 73%. Left ventricular end diastolic volume is 77 mL. TID is absent (0.93). CONCLUSIONS: 1. No evidence of any significant myocardial ischemia or infarction on this study. 2. Normal regional wall motion. 3. Normal global left ventricular systolic function with a calculated ejection fraction of 73%. Job ID: [id number] DocumentID: [id number] Dictated Date: 10/18/2019 10:36:03 Drug Abuse Resistance Education Officer Date: 10/18/2019 12:58:11 Dictated By: BHUMI SHARMA MD, MA, FACP, FACC,
--- NOTE | 2019-10-18 13:07 | Discharge Summary ---
Discharge Summary Hospital Course Was the Problem List Reviewed?: Yes Problems/Dx: (1) Hypertensive urgency Status: Acute (2) Elevated troponin Status: Acute (3) CKD (chronic kidney disease) Status: Chronic Qualifiers: Qualified Codes: N18.4 - Chronic kidney disease, stage 4 (severe) Hospital Course Date of Admission: Oct 16, 2019 at 13:31 Admission Diagnosis : hypertensive urgency Family Physician/Provider: Zulema Finn MD Date of Discharge: 10/18/19 Discharge Diagnosis: hypertensive urgency Hospital Course: Fredis Kasper is a 69-year-old male who was admitted with hypertensive urgency. His antihypertensive regimen was adjusted and his blood pressure improved. He was also found to have an elevated troponin. Cardiology was consulted and assisted in his care. He underwent a cardiac stress test which was normal. He will follow up with cardiology. He should also follow-up with his primary care physician. Labs and Pending Lab Test: Laboratory Tests 10/17/19 15:43: Glucometer 144H 10/17/19 20:24: Glucometer 187H 10/18/19 05:16: Glucometer 127H 10/18/19 05:31: White Blood Count 9.0, Red Blood Count 4.99, Hemoglobin 14.6, Hematocrit 45, Mean Corpuscular Volume 90, Mean Corpuscular Hemoglobin 29, Mean Corpuscular Hemoglobin Concent 33, Red Cell Distribution Width 14.4, Platelet Count 216, Mean Platelet Volume 11.6H, Sodium Level 139, Potassium Level 4.3, Chloride Level 107, Carbon Dioxide Level 21, Anion Gap 11, Blood Urea Nitrogen 44H, Creatinine 2.70H, Estimat Glomerular Filtration Rate 29, BUN/Creatinine Ratio 16, Glucose Level 130H, Calcium Level 9.5 10/18/19 11:09: Glucometer 283H Microbiology 10/16/19 Influenza Types A,B Antigen (MÓNICA) - Final, Complete Home Meds Active Amlodipine Besylate 5 Mg Tablet 10 Mg PO DAILY Carvedilol 12.5 Mg Tablet 12.5 Mg PO BID Doxazosin Mesylate 4 Mg Tablet 0 Mg PO BID Reported Triamcinolone Acetonide 0.1% Cream (Triamcinolone Acet) 15 Gm Cr 1 Applic TOP BID PRN APPLY TO THE UNDER ARMS, GROIN AND BACK Levemir Flextouch (Insulin Detemir) 100 Unit/1 Ml Insuln.pen 40 Unit SQ HS Insulin Aspart Flexpen (Insulin Aspart) 100 Unit/1 Ml Insuln.pen 6-10 Unit SQ TIDAC RX SAYS 6 UNITS BUT CAN INCREASE UP TO 10 UNITS IF NEEDED Levemir Flextouch (Insulin Detemir) 100 Unit/1 Ml Insuln.pen 35 Unit SQ DAILY Miralax (Polyethylene Glycol 3350) 17 Gm Powd.pack 17 Gm PO DAILY PRN Senna S Tablet (Sennosides/Docusate Sodium) 1 Each Tablet 2 Each PO HS PRN Tylenol Extra Strength (Acetaminophen) 500 Mg Tablet 500-1,000 Mg PO HS PRN Nitroglycerin 0.4 Mg Tab.subl 0.4 Mg SL UD PRN Furosemide 40 Mg Tablet 20 Mg PO BID TAKES OF A 40 MG TAB TWICE DAILY Magnesium (Magnesium Oxide) 400 Mg Tablet 400 Mg PO BID Omeprazole 20 Mg Capsule.dr 20 Mg PO BIDAC Cetirizine HCl 10 Mg Tablet 10 Mg PO DAILY Oxybutynin Chloride 5 Mg Tablet 5-10 Mg PO HS TAKES 1-2 (5MG) TABS Glimepiride 4 Mg Tablet 4 Mg PO BID Doxazosin Mesylate 4 Mg Tablet 2 Mg PO BID TAKES OF 4MG TWICE DAILY Spironolactone 50 Mg Tablet 50 Mg PO DAILY Clonidine HCl 0.1 Mg Tablet 0.1 Mg PO BID Aspirin EC (Aspirin) 325 Mg Tablet.dr 325 Mg PO DAILY Loratadine 10 Mg Tablet 10 Mg PO DAILY Allopurinol 300 Mg Tablet 300 Mg PO DAILY Atorvastatin Calcium 80 Mg Tablet 80 Mg PO HS Assessment/Pt Instructions take medications as prescribed. We have adjusted your blood pressure regimen. Follow up with cardiology as scheduled. Follow-up with your primary care physician. Discharge Planning: <30 minutes discharge planning Discharge Instructions Discharge Diet: No Restrictions Activity as Tolerated: Yes Consultations cardiology Discharge Physical Examination Vital Signs Vital Signs Date Time Temp Pulse Resp B/P (MAP) Pulse Ox O2 Delivery O2 Flow Rate FiO2 10/18/19 11:39 71 18 184/83 (116) 97 Room Air 10/18/19 11:37 36.4 General Appearance: No Apparent Distress, WD/WN Respiratory: Lungs Clear, Normal Breath Sounds, No Respiratory Distress Cardiovascular: Regular Rate, Rhythm, No Edema, No Murmur Gastrointestinal: Normal Bowel Sounds, Non Tender, Soft Extremity: Normal Inspection, Non Tender, Pedal Edema Skin: Normal Color, Warm/Dry Neurologic/Psychiatric: Alert, Oriented x3, No Motor/Sensory Deficits, Normal Mood/Affect Allergies: Coded Allergies: levofloxacin (Verified Allergy, Unknown, 04/20/15) metformin (Verified Allergy, Unknown, 04/20/15) Copy Copies To 1: ZULEMA FINN MD Discharge Summary Date of Admission Oct 16, 2019 at 13:31 Date of Discharge Discharge Date: Oct 18, 2019 Discharge Time: 13:07 Admission Diagnosis Hypertensive urgency Consults/Procedures Consulations cardiology Procedures stress test Discharge Diagnosis Hypertensive urgency (1) Hypertensive urgency Status: Acute (2) Elevated troponin Status: Acute (3) CKD (chronic kidney disease) Status: Chronic Qualifiers: Qualified Codes: N18.4 - Chronic kidney disease, stage 4 (severe) Clinical Quality Measures DVT/VTE Risk/Contraindication: Risk Factor Score Per Nursin RFS Level Per Nursing on Admit: 4+=Very High JENNIFER ROGERS MD Oct 18, 2019 13:07
[2019-10-18] MEDS ORDERED: hydrALAZINE (APRESOLINE) 25 MG TAB PO SCH (14:00)
--- NOTE | 2019-10-18 14:20 | Progress Note - Cardiology ---
Cardiology SOAP Progress Note Subjective: No cp or palp or syncope or shortness of breath Feels better than at time of admission No n/v/d No focal weakness Objective: I&O/Vital Signs 10/18/19 10/18/19 10/18/19 10/18/19 02:51 04:15 06:09 07:01 Temp 36.8 Pulse 62 62 61 Resp 18 B/P (MAP) 156/82 (106) 170/82 (111) Pulse Ox 98 94 O2 Delivery Room Air Room Air 10/18/19 10/18/19 10/18/19 10/18/19 08:00 08:03 08:55 11:37 Temp 36.8 36.4 Pulse 63 78 71 Resp 20 16 18 B/P (MAP) 165/96 (119) 178/94 (122) 184/83 (116) Pulse Ox 97 97 97 O2 Delivery Room Air Room Air Room Air Room Air 10/18/19 10/18/19 11:39 13:20 Pulse 71 71 Resp 18 B/P (MAP) 184/83 (116) Pulse Ox 97 O2 Delivery Room Air 10/18/19 00:00 Intake Total 1050 ml Balance 1050 ml Weight (Pounds): 235 Weight (Ounces): 6.0 Weight (Calculated Kilograms): [id number] Constitutional: AAO x 3, well-developed, well-nourished Respiratory: No accessory muscle use, No respiratory distress; chest expansion is symmetric, chest is bilaterally symmetric, lungs clear to auscultation Cardiovascular: regular rate-rhythm; No JVD; S1 and S2 Gastrointestional: No tender; soft, round, audible bowel sounds Extremities: no lower extremity edema bilateral Neurologic/Psychiatric: grossly intact (moves all extremities) Skin: No rash on exposed areas, No ulcerations on exposed areas Results/Procedures: Labs Laboratory Tests 10/17/19 15:43: Glucometer 144H 10/17/19 20:24: Glucometer 187H 10/18/19 05:16: Glucometer 127H 10/18/19 05:31: White Blood Count 9.0, Red Blood Count 4.99, Hemoglobin 14.6, Hematocrit 45, Mean Corpuscular Volume 90, Mean Corpuscular Hemoglobin 29, Mean Corpuscular Hemoglobin Concent 33, Red Cell Distribution Width 14.4, Platelet Count 216, Mean Platelet Volume 11.6H, Sodium Level 139, Potassium Level 4.3, Chloride Level 107, Carbon Dioxide Level 21, Anion Gap 11, Blood Urea Nitrogen 44H, Creatinine 2.70H, Estimat Glomerular Filtration Rate 29, BUN/Creatinine Ratio 16, Glucose Level 130H, Calcium Level 9.5 10/18/19 11:09: Glucometer 283H Microbiology 10/16/19 Influenza Types A,B Antigen (MÓNICA) - Final, Complete Laboratory Tests 10/17/19 05:17 10/18/19 05:31 A/P: Assessment: Severe HTN Mildly elevated troponin likely type 2 secondary to severe hypertension No evidence of myocardial ischemia or infarction and LVEF 73% on MPI of 10/18/19 Acute on chronic renal failure, acute component improved. Chronic kidney disease stage 4 which is being followed by Dr. Ferreira Coronary artery disease with history of coronary artery stenting with Promus 3.5 x 23-mm stent in 2008, stable on subsequent cardiac catheterization of June 2010. MPI of March 06, 2018 showed no evidence of singiiviant myocardial ischemia or infarction. Normal regional wall motion. LVEF 53% Echo of 10/17/19 showed LVEF 60-65%. Grade 1 diastolic dysfunction, PASP WNL Renal u/s of 10-15-2019. Bilateral renal cystic disease. No calculus or hydronephrosis is detected. Probable bladder calculus. Maturity onset diabetes mellitus, insulin requiring. Intolerance to BUCKY-inhib due to cough. Not suitable candidate for BUCKY or ARB d/t worsening renal function Gastroesophageal reflux. Degenerative joint disease. Sleep apnea - C-PAP therapy for which he follows with Dr. Venegas Vertigo - suspected Meniere's dz being treated with Lasix per his ENT physician at [facility] Plan: * I discussed his CV issues with Mr Kasper and answered questions * We discussed the results of CV w/u carried out during this hospitalization (summarized above) * We advise continuation of current regimen * Close outpt f/u advised BHUMI SHARMA MD FACP [facility] Oct 18, 2019 14:20
== END 2019-10-18 14:05 | disposition home or self-care (01) ==
LOC: EDUNIT# 06:39 → ER 06:42 → 4TH 13:31
PROVIDERS: ADMIT Internal Medicine; ATTEND Internal Medicine
DX: I16.0 Hypertensive urgency (principal); I25.10 Atherosclerotic heart disease of native coronary artery without angina pectoris; I12.9 Hypertensive chronic kidney disease with stage 1 through stage 4 chronic kidney disease, or unspecified chronic kidney disease; I25.2 Old myocardial infarction; J45.909 Unspecified asthma, uncomplicated; E78.00 Pure hypercholesterolemia, unspecified; E11.40 Type 2 diabetes mellitus with diabetic neuropathy, unspecified; E11.22 Type 2 diabetes mellitus with diabetic chronic kidney disease; M19.90 Unspecified osteoarthritis, unspecified site; K21.9 Gastro-esophageal reflux disease without esophagitis; R79.89 Other specified abnormal findings of blood chemistry; N18.4 Chronic kidney disease, stage 4 (severe); G47.30 Sleep apnea, unspecified; M10.9 Gout, unspecified; Z86.718 Personal history of other venous thrombosis and embolism; Z88.8 Allergy status to other drugs, medicaments and biological substances; Z88.1 Allergy status to other antibiotic agents; Z79.4 Long term (current) use of insulin; Z79.899 Other long term (current) drug therapy; Z79.82 Long term (current) use of aspirin; Z20.828 Contact with and (suspected) exposure to other viral communicable diseases; Z99.89 Dependence on other enabling machines and devices
CPT/HCPCS: 71045; 78452; 80048; 80053 ×2; 80061; 81000; 82962 ×3; 83735 ×2; 83874; 83880; 84443; 84484; 85025; 85027; 85610; 85730; 86141; 87804; 93005; 93017; 93041; 93306; 94640 ×2; 94760 ×2; 99284; A9502; U0002; 36415; 87635; 96361; 96374; 96375; G0378

== ENCOUNTER → 2019-10-23 | Outpatient (CLI) | payer BC, MEDICARE ==
[~2019-10-23] MED LIST changes: +ACET-2267 PO; +ALLO300T2 PO; +AMLO5TAB9 PO; +ASPI325T32 PO; +CARV12.53 PO; +CETI10TA17 PO; +DOXA4TAB2 PO; +FURO40TA4 PO; +GLIM4TAB5 PO; +INSU100I29 SQ; +INSU100I55 SQ; +MAGN400T39 PO; +NITR0.4T39 SL; +OMEP20CA18 PO; +OXYB5TAB13 PO; +POLY17PO6 PO; +SENN-145 PO; +SPIR50TA4 PO; +TR1C15 TOP
[2019-10-23 09:51] LABS: POTASSIUM 4.4 MMOL/L (3.6-5.0)
[2019-10-23 09:53] LABS: CALCIUM 8.9 MG/DL (8.5-10.1)
[2019-10-23 09:57] LABS: CREATININE SERUM 2.92 MG/DL (0.60-1.30)
== END ==
LOC: LAB 09:19
PROVIDERS: ATTEND Nurse Practitioner Family
DX: I12.9 Hypertensive chronic kidney disease with stage 1 through stage 4 chronic kidney disease, or unspecified chronic kidney disease (principal); N18.4 Chronic kidney disease, stage 4 (severe)
CPT/HCPCS: 36415; 80048

== ENCOUNTER → 2020-03-11 | Outpatient (CLI) | payer BC, MEDICARE ==
[~2020-03-11] MED LIST changes: +AMLO-250 PO; +AMLO-251 PO; -AMLO10TA7 PO; -AMLO5TAB9 PO; +CLN.1T PO; -CLON0.1T PO
--- NOTE | 2020-03-11 09:41 | Diagnostic Imaging Report ---
INDICATION: Right upper quadrant pain x 1 month. PROCEDURE: Ultrasound abdomen complete. TECHNIQUE: Multiple Real-time grayscale images were obtained of the abdomen in various projections. FINDINGS: The liver is normal in size at 15.3 cm. The portal vein is patent and shows normal direction of flow. No discrete liver mass is detected. The gallbladder is without stones or sludge. No wall thickening is identified. No biliary ductal dilatation is identified. The pancreas is unremarkable. The spleen is normal in size at 9.2 cm. The aorta is non-aneurysmal. The IVC is patent. Both kidneys contain cysts. The largest on the right is approximately 5 cm. The largest cyst on the left is approximately 4 cm. No calculus or hydronephrosis is seen. There is no ascites. IMPRESSION: Unremarkable abdominal ultrasound apart from bilateral renal cysts. No cholelithiasis or acute cholecystitis is identified. Dictated by: Dictated on workstation # [id number]
== END ==
LOC: RAD 07:00
PROVIDERS: ATTEND Internal Medicine
DX: N28.1 Cyst of kidney, acquired (principal)
CPT/HCPCS: 76700

== ENCOUNTER 2020-06-20 12:23 | Emergency (ER) | payer BC, MEDICARE ==
[~2020-06-20] VITALS: Ht 182.8 cm; Wt 99.7 kg
[~2020-06-20 12:23] MED LIST changes: -LISI40TA PO; +LISI40TA9 PO
--- NOTE | 2020-06-20 12:54 | ED Lower Extremity ---
General Chief Complaint: Lower Extremity Stated Complaint: FALL - R KNEE PAIN Source: patient Exam Limitations: no limitations History of Present Illness Date Seen by Provider: Jun 20, 2020 Time Seen by Provider: 12:48 Initial Comments This is a well-appearing 69-year-old male who presents to the ER with complaints of right knee pain after falling around 6:00 this morning. States that he's been having issues with his leg giving out and increasing weakness, but his primary care provider is following him for this. States today he was walking with his cane when his leg gave out and he fell onto his tiled floor landing on his knee cap. Reports minor abrasion to right knee cap and right foot. Denies hitting head, LOC, or any other injuries. Allergies and Home Medications Allergies Coded Allergies: levofloxacin (Verified Allergy, Unknown, 04/20/15) metformin (Verified Allergy, Unknown, 04/20/15) Home Medications Acetaminophen 500 Mg Tablet, 500-1,000 MG PO HS PRN for PAIN-MODERATE (5-7), (R eported) Allopurinol 300 Mg Tablet, 300 MG PO DAILY, (Reported) Amlodipine Besylate 5 Mg Tablet, 10 MG PO DAILY Prescribed by: MAURICIO PARKER on 10/18/19 1152 Aspirin 325 Mg Tablet.dr, 325 MG PO DAILY, (Reported) Atorvastatin Calcium 80 Mg Tablet, 80 MG PO HS, (Reported) Carvedilol 12.5 Mg Tablet, 12.5 MG PO BID Prescribed by: MAURICIO PARKER on 10/18/19 1152 Cetirizine HCl 10 Mg Tablet, 10 MG PO DAILY, (Reported) Doxazosin Mesylate 4 Mg Tablet, 0 MG PO BID Prescribed by: MAURICIO PARKER on 10/18/19 1152 Glimepiride 4 Mg Tablet, 4 MG PO BID, (Reported) Insulin Aspart 100 Unit/1 Ml Insuln.pen, 6-10 UNIT SQ TIDAC, (Reported) RX SAYS 6 UNITS BUT CAN INCREASE UP TO 10 UNITS IF NEEDED Insulin Detemir 100 Unit/1 Ml Insuln.pen, 35 UNIT SQ DAILY, (Reported) Insulin Detemir 100 Unit/1 Ml Insuln.pen, 40 UNIT SQ HS, (Reported) Loratadine 10 Mg Tablet, 10 MG PO DAILY, (Reported) Nitroglycerin 0.4 Mg Tab.subl, 0.4 MG SL UD PRN for CHEST PAIN, (Reported) Omeprazole 20 Mg Capsule.dr, 20 MG PO BIDAC, (Reported) Oxybutynin Chloride 5 Mg Tablet, 5-10 MG PO HS, (Reported) TAKES 1-2 (5MG) TABS Polyethylene Glycol 3350 17 Gm Powd.pack, 17 GM PO DAILY PRN for CONSTIPATION- 2ND LINE, (Reported) Sennosides/Docusate Sodium 1 Each Tablet, 2 EACH PO HS PRN for CONSTIPATION-6TH LINE, (Reported) Triamcinolone Acet 15 Gm Cr, 1 APPLIC TOP BID PRN for RASH/YEAST, (Reported) APPLY TO THE UNDER ARMS, GROIN AND BACK Patient Home Medication List Home Medication List Reviewed: Yes Review of Systems Constitutional: no symptoms reported EENTM: no symptoms reported Respiratory: no symptoms reported Cardiovascular: no symptoms reported Gastrointestinal: no symptoms reported Genitourinary: no symptoms reported Musculoskeletal: see HPI Skin: see HPI Psychiatric/Neurological: No Symptoms Reported Past Elwlfia-Mxqrkw-Upefqp Hx Patient Social History Alcohol Use: Denies Use 2nd Hand Smoke Exposure: No Recent Hopitalizations: No Immunizations Up To Date Tetanus Booster (TDap): Less than 5yrs Date of Pneumonia Vaccine: Feb 05, 2019 Date of Influenza Vaccine: Feb 20, 2015 Seasonal Allergies Seasonal Allergies: Yes Past Medical History Surgeries: Yes (LEFT KNEE SCOPE X 2; RIGHT CARPAL TUNNEL;HERNIA REPAIR; HEART CATHX3) Abdominal, Cardiac, Coronary Stent, Orthopedic Respiratory: Yes Asthma Currently Using CPAP: No Currently Using BIPAP: No Cardiac: Yes (STENT X1 , [place] AT 41) Chronic Edema/Swelling, Coronary Artery Disease, Heart Attack, High Cholesterol, Hypertension Neurological: Yes Neuropathy Reproductive Disorders: No Sexually Transmitted Disease: No HIV/AIDS: No Genitourinary: Yes Renal Failure Gastrointestinal: Yes (hep A) Gastroesophageal Reflux, Hepatitis Musculoskeletal: Yes Arthritis, Back Injury, Gout Endocrine: Yes Diabetes, Insulin dep Loss of Vision: Denies Hearing Impairment: Hearing Aide Right Cancer: No Psychosocial: No Integumentary: No Blood Disorders: No Adverse Reaction/Blood Tranf: No Family Medical History Patient reports no known family medical history. No Pertinent Family Hx Physical Exam Vital Signs Vital Signs - First Documented 06/20/20 12:45 Temp 36.7 Pulse 75 Resp 20 B/P (MAP) 165/96 (119) Pulse Ox 97 O2 Delivery Room Air Capillary Refill : Height, Weight, BMI Height: 6'1.00" Weight: 235lbs. 6.0oz. [id number]; 32.30 BMI Method:Stated General Appearance: WD/WN, no apparent distress HEENT: PERRL/EOMI, normal ENT inspection, pharynx normal Neck: full range of motion, supple, normal inspection Cardiovascular: regular rate, rhythm, no murmur Respiratory: chest non-tender, lungs clear, normal breath sounds Gastrointestinal: normal bowel sounds, non tender, soft Back: normal inspection, no vertebral tenderness Hips: bilateral hip non-tender, bilateral hip normal inspection, bilateral hip normal range of motion Legs: bilateral leg non-tender, bilateral leg normal inspection, bilateral leg normal range of motion Knees: left knee non-tender, left knee normal inspection, left knee normal range of motion; right knee bone tenderness, right knee pain, right knee soft tissue tenderness, right knee swelling Ankles: bilateral ankle non-tender, bilateral ankle normal inspection, bilateral ankle normal range of motion, bilateral ankle no evidence of injury Feet: bilateral foot non-tender, bilateral foot normal inspection, bilateral foot normal range of motion, bilateral foot no evidence of injury Neurologic/Tendon: normal sensation, normal motor functions, normal tendon functions Neurologic/Psychiatric: no motor/sensory deficits, alert, normal mood/affect, oriented x 3 Skin: normal color, warm/dry, other (Superficial abrasion to right knee cap and right foot. ) Progress/Results/Core Measures Results/Orders My Orders Orders - FARAZ BLANKENSHIP APRN Knee, Right, 3 Views (06/20/20 12:54) Femur, Right, 2 Views (06/20/20 12:54) Hydrocodone/Apap 5/325 Tablet (Lortab 5 (06/20/20 13:15) Medications Given in ED Current Medications Medications Dose Ordered Sig/Rufino Route Start Time Stop Time Status Last Admin Dose Admin Acetaminophen/ Hydrocodone Bitart 1 tab ONCE ONCE PO 06/20/20 13:15 06/20/20 13:16 DC 06/20/20 13:08 1 TAB Vital Signs/I&O 06/20/20 06/20/20 12:45 13:55 Temp 36.7 36.7 Pulse 75 75 Resp 20 20 B/P (MAP) 165/96 (119) 165/96 (119) Pulse Ox 97 97 O2 Delivery Room Air Room Air Progress Progress Note : Progress Note Pt. examined and in no acute distress. Images of right knee and femur ordered. Orders placed for Lortab 5/325mg for pain. Abrasions washed with Chlorahexadine wash and NS. Covered with JOSE GUADALUPE and bandage. States he has been experiencing this weakness for quite some time and has a follow-up scheduled with his primary care provider on Monday for further evaluation. Radiographs reviewed and show no acute findings. Discussed with patient and reviewed POC, he is agreeable with plan to keep f/u with his PCP on Monday. Viral wrap applied to right knee. Verbalized understanding of discharge instructions. Reported pain 0/10 at discharge. Diagnostic Imaging Diagonstic Imaging: Xray Plain Films/CT/US/NM/MRI: knee Comments NAME: DOMINICK ARELLANO JR [facility] REC#: [id number] PT STATUS: REG ER : 1950 PHYSICIAN: FARAZ BLANKENSHIP APRN ADMIT DATE: 06/20/20/ER Draft Date of Exam:06/20/20 KNEE, RIGHT, 3 VIEWS INDICATION: Fall, knee pain TECHNIQUE: 3 views of the right knee CORRELATION STUDY: None FINDINGS: The joint spaces are maintained. The articular surfaces are smooth and preserved. There is no acute bony abnormality. Mild osteophyte formation superior aspect patella. Well-corticated density inferior to the patella. Mild anterior edema. Vascular calcification present. IMPRESSION: 1. Negative for acute bony abnormality of the knee. Dictated on workstation # [id number] Dict: 06/20/20 1335 Trans: 06/20/[address] [facility] [id number] Interpreted by: BHAVIN JEFF DO Electronically signed by: Diagonstic Imaging: Xray Plain Films/CT/US/NM/MRI: femur Comments NAME: DOMINICK ARELLANO JR MED REC#: [id number] PT STATUS: REG ER : 1950 PHYSICIAN: FARAZ BLANKENSHIP APRN ADMIT DATE: 06/20/20/ER Draft Date of Exam:06/20/20 FEMUR, RIGHT, 2 VIEWS INDICATION: Fall, knee pain TECHNIQUE: Frontal and Lateral views of the right femur CORRELATION STUDY: None FINDINGS: Examination of the femur demonstrates no evidence for acute bony abnormality or fracture of the femur. No river bony destructive change. Imaging of the hip and knee are unremarkable. Soft tissues are unremarkable. Vascular calcification present. IMPRESSION: 1. Negative for acute bony abnormality of the femur. Dictated on workstation # [id number] Dict: 06/20/20 1336 Trans: 06/20/20 1339 CV [id number] Interpreted by: BHAVIN JEFF DO Electronically signed by: Departure Impression Primary Impression: Contusion of knee Disposition: HOME, SELF-CARE Condition: Improved Departure-Patient Inst. Decision time for Depature: 13:47 Referrals: ZULEMA FINN MD (PCP/Family) Primary Care Physician Patient Instructions: Contusion (DC) Add. Discharge Instructions: Plan: 1. Keep injured area elevated above your heart for the first 24-48 hours, this is when most of the swelling will occur. 2. Use ice packs to the area for the first 24-48 hours, 15 minutes at a time. 3. Wear viral bandage as directed. Re-wrap at least twice daily. 4. Wrap snugly but loosen it if you feel numbness or tingling. 5. Wiggle toes or fingers often to prevent swelling. 6. If extremity becomes numb, cold, more painful, blanched or discolored or excessively swollen, contact your physician or return to the ER. 7. Continue to use cane with ambulation. 8. Return to ER for any new, concerning, or worsening symptoms. All discharge instructions reviewed with patient and/or family. Voiced understanding. FARAZ BLANKENSHIP FUEL OPERATOR Jun 20, 2020 12:54
[2020-06-20] MEDS ORDERED: HYDROcodone/APAP 5 MG/325 MG (LORTAB) TAB PO ONE (13:15)
--- NOTE | 2020-06-20 13:39 | Diagnostic Imaging Report ---
INDICATION: Fall, knee pain TECHNIQUE: Frontal and Lateral views of the right femur CORRELATION STUDY: None FINDINGS: Examination of the femur demonstrates no evidence for acute bony abnormality or fracture of the femur. No river bony destructive change. Imaging of the hip and knee are unremarkable. Soft tissues are unremarkable. Vascular calcification present. IMPRESSION: 1. Negative for acute bony abnormality of the femur. Dictated by: Dictated on workstation # [id number]
--- NOTE | 2020-06-20 13:39 | Diagnostic Imaging Report ---
INDICATION: Fall, knee pain TECHNIQUE: 3 views of the right knee CORRELATION STUDY: None FINDINGS: The joint spaces are maintained. The articular surfaces are smooth and preserved. There is no acute bony abnormality. Mild osteophyte formation superior aspect patella. Well-corticated density inferior to the patella. Mild anterior edema. Vascular calcification present. IMPRESSION: 1. Negative for acute bony abnormality of the knee. Dictated by: Dictated on workstation # [id number]
[2020-06-20 13:55] VITALS: BP 165/96
== END 2020-06-20 14:03 | disposition home or self-care (01) ==
LOC: EDUNIT# 12:23 → ER 12:25
DX: S80.01XA Contusion of right knee, initial encounter (principal); E78.00 Pure hypercholesterolemia, unspecified; M10.9 Gout, unspecified; K21.9 Gastro-esophageal reflux disease without esophagitis; I25.2 Old myocardial infarction; I25.10 Atherosclerotic heart disease of native coronary artery without angina pectoris; I10 Essential (primary) hypertension; E11.9 Type 2 diabetes mellitus without complications; Z95.5 Presence of coronary angioplasty implant and graft; Z88.1 Allergy status to other antibiotic agents; Z88.8 Allergy status to other drugs, medicaments and biological substances; Z79.4 Long term (current) use of insulin; Z79.82 Long term (current) use of aspirin; W19.XXXA Unspecified fall, initial encounter
CPT/HCPCS: 73552; 73562

== ENCOUNTER → 2020-07-09 | Outpatient (CLI) | payer BC, MEDICARE ==
--- NOTE | 2020-07-09 16:10 | Diagnostic Imaging Report ---
EXAMINATION: MRI RT lower ext joint w/o. TECHNIQUE: Multiplanar, multisequence MR imaging of the right knee was performed without contrast. COMPARISON: Right knee radiographs from 06/20/2020. INDICATION: Right knee pain with fall less than one month ago. FINDINGS: MENISCI Medial meniscus: Truncation of the free edge of the body of the medial meniscus is most compatible with some degenerative tearing. Lateral meniscus: Normal. LIGAMENTS ACL: Intact. PCL: Intact. MCL: Intact. LCL: The lateral collateral ligamentous complex is intact. EXTENSOR MECHANISM The extensor mechanism is intact. CARTILAGE Medial compartment: Diffuse chondral wear is present throughout the medial compartment. There is a focus of superimposed full-thickness chondral loss and delamination in the posterior weightbearing aspect of the medial femoral condyle. Lateral compartment: The lateral compartment articular cartilage is preserved without high-grade chondromalacia. Patellofemoral compartment: The patellofemoral articular cartilage is well preserved without high-grade chondromalacia. BONE Subcortical bone marrow edema is present in the posterior aspect of the lateral tibial plateau. No macroscopic fracture lines are appreciated and this is likely due to bone contusion/microtrabecular injury. SOFT TISSUE No knee effusion or Platt's cyst. IMPRESSION: 1. Bone contusion/microtrabecular fracture in the posterior aspect of the lateral tibial plateau. There is no disruption/depression of the subchondral bone plate. 2. Mild degenerative free edge truncation in the body of the medial meniscus. 3. Degenerative arthritis in the medial compartment is characterized by chondral wear and a small focus of full-thickness articular cartilage loss posteriorly. Dictated by: Dictated on workstation # [id number]
== END ==
LOC: RAD 13:15
PROVIDERS: ATTEND Orthopaedic Surgery
DX: S82.141A Displaced bicondylar fracture of right tibia, initial encounter for closed fracture (principal); M17.11 Unilateral primary osteoarthritis, right knee; W19.XXXA Unspecified fall, initial encounter
CPT/HCPCS: 73721

== ENCOUNTER → 2020-09-17 | Outpatient (CLI) | payer BC, MEDICARE ==
[~2020-09-17] MED LIST changes: +ASCO500C18 PO; +ASPI-999 PO; +CHOL500049 PO; +CYCL5TAB PO; +DOCU-143 PO; +FLUT1DIS26 IH; +MELA1TAB27 PO; +PREG50CA65 PO; +RT-ALBUINH IH; +VIT1TABL54 PO; +VITA200C18 PO
--- NOTE | 2020-09-17 12:52 | Diagnostic Imaging Report ---
PROCEDURE: US Thyroid. TECHNIQUE: Multiple real-time grayscale images were obtained of the thyroid in various projections. INDICATION: Left thyroid nodule. COMPARISON: None FINDINGS: The left thyroid lobe measures 6.2 x 2.5 x 2.0 cm in size. Background echotexture appears homogenous. Vascularity is normal. There is a solid mildly heterogeneous predominantly isoechoic nodule in the mid left thyroid which measures 2.0 x 1.3 x 1.5 cm. No calcifications are seen. The border is somewhat ill-defined. The isthmus measures 4 mm in thickness and appears normal. The right thyroid lobe measures 6.1 x 2.9 x 2.1 cm in size. Echogenicity and vascularity are normal. No nodules are seen. IMPRESSION: 1. Left thyroid nodule qualifies follow-up in one year based on TI-RADS criteria. Dictated by: Dictated on workstation # [id number]
== END ==
LOC: RAD 08:30
PROVIDERS: ATTEND Internal Medicine
DX: E04.1 Nontoxic single thyroid nodule (principal)
CPT/HCPCS: 76536

== ENCOUNTER → 2020-09-21 | Outpatient (CLI) | payer BC, MEDICARE ==
--- NOTE | 2020-09-21 16:33 | Diagnostic Imaging Report ---
INDICATION: History of injury with previous fracture. Now with recent fall and possible reinjury. COMPARISON: 06/20/2020 FINDINGS: Multiple radiographic views of the right tibia and fibula were obtained and show no fractures, dislocations, or other acute bony abnormalities. Joint spaces are well maintained throughout. The soft tissues appear unremarkable. No radiopaque foreign bodies are identified. IMPRESSION: Unremarkable radiographic exam of the right tibia and fibula. Dictated by: Dictated on workstation # [id number]
--- NOTE | 2020-09-21 16:53 | Diagnostic Imaging Report ---
PROCEDURE: US right lower extremity venous. TECHNIQUE: Multiple real-time grayscale images were obtained over the right lower extremity in various projections. Additional spectral analysis and color Doppler duplex images were also obtained. INDICATION: Right lower extremity edema and pain. Recent fall. FINDINGS: Color Doppler imaging shows normal blood flow throughout the right lower extremity venous system from the common femoral vein to the ankle. Calf compression shows normal augmentation of flow at the popliteal level. No evidence of popliteal cyst. IMPRESSION: Negative right lower extremity venous thrombosis. Dictated by: Dictated on workstation # [id number]
== END ==
LOC: RAD 15:04
PROVIDERS: ATTEND Nurse Practitioner Family
DX: M79.661 Pain in right lower leg (principal); R60.0 Localized edema
CPT/HCPCS: 73590

== ENCOUNTER → 2020-09-29 | Outpatient (CLI) | payer BC, MEDICARE ==
[2020-09-29 12:23] LABS: ALBUMIN 3.9 GM/DL (3.2-4.5); BILIRUBIN,TOTAL 0.7 MG/DL (0.1-1.0); CALCIUM 9.1 MG/DL (8.5-10.1); CREATININE SERUM 2.54 MG/DL (0.60-1.30); POTASSIUM 4.1 MMOL/L (3.6-5.0); TOTAL PROTEIN 7.3 GM/DL (6.4-8.2)
--- NOTE | 2020-09-29 12:59 | Diagnostic Imaging Report ---
INDICATION: Right-sided abdominal pain. COMPARISON: CT abdomen/pelvis from 02/20/2017. TECHNIQUE: Unenhanced CT imaging of the abdomen and pelvis was performed. 2-D reformats are created and submitted for interpretation. Automatic exposure controls were utilized to optimize patient dose. FINDINGS: Evaluation of the abdominal viscera is mildly limited without contrast. Lower chest: The lung bases are clear. No pericardial or pleural effusion. Peritoneum: No free intraperitoneal air or fluid. Liver and biliary system: Unenhanced liver is normal. The gallbladder is normal. No biliary duct dilation. Spleen and Pancreas: Spleen is normal. Unenhanced pancreas is grossly normal. Adrenals: Normal. tract: No renal or ureteral stones. No obstructive uropathy. Multiple bilateral renal cysts are stable to mildly increased in size. There are no solid renal masses appreciated by noncontrast imaging. The urinary bladder is normally filled. The prostate is enlarged, unchanged since the prior examination. The prostate has a maximal dimension of 5.8 cm. GI tract: Stomach is decompressed. No bowel obstruction. No pericolonic inflammatory changes. Normal appendix. Vasculature and Lymph nodes: Normal caliber aorta with moderate atherosclerotic plaquing. No retroperitoneal hemorrhage. No abdominal or pelvic lymphadenopathy. Musculoskeletal: No concerning osseous lesion. IMPRESSION: 1. No urinary tract calculi or obstructive uropathy. 2. No colitis, diverticulitis, or appendicitis. 3. Numerous bilateral renal cysts are stable to mildly increased in size since 2017. There are no concerning renal masses. Dictated by: Dictated on workstation # [id number]
== END ==
LOC: RAD 11:37
PROVIDERS: ATTEND Nurse Practitioner Family
DX: N28.1 Cyst of kidney, acquired (principal); N18.4 Chronic kidney disease, stage 4 (severe)
CPT/HCPCS: 36415; 74176; 80053; 83690

== ENCOUNTER 2020-10-15 11:17 | Outpatient (RCR) | payer BC, MEDICARE | END 2020-10-18 | disposition home or self-care (01) | PROVIDERS: ATTEND Orthopaedic Surgery | DX: M54.10 Radiculopathy, site unspecified (principal); M62.81 Muscle weakness (generalized) ==

== ENCOUNTER 2020-12-30 12:52 | Outpatient (RCR) | payer BC, MEDICARE | END 2021-01-06 15:00 | disposition home or self-care (01) | PROVIDERS: ATTEND Orthopaedic Surgery | DX: M54.10 Radiculopathy, site unspecified (principal); M62.81 Muscle weakness (generalized); I11.9 Hypertensive heart disease without heart failure; K21.9 Gastro-esophageal reflux disease without esophagitis; E11.9 Type 2 diabetes mellitus without complications ==

== ENCOUNTER 2021-03-29 15:31 | Outpatient (RCR) | payer MEDICARE, OTHER ==
[~2021-03-29 15:31] MED LIST changes: +POTA-169 PO; -POTA20TA8 PO
== END 2021-04-06 | disposition home or self-care (01) ==
PROVIDERS: ATTEND Orthopaedic Surgery
DX: M54.16 Radiculopathy, lumbar region (principal); I10 Essential (primary) hypertension; E11.9 Type 2 diabetes mellitus without complications

== ENCOUNTER 2021-05-06 15:26 | Outpatient (RCR) | payer BC, MEDICARE, OTHER | END 2021-05-07 | disposition home or self-care (01) | PROVIDERS: ATTEND Orthopaedic Surgery | DX: M54.9 Dorsalgia, unspecified (principal); I10 Essential (primary) hypertension; E11.9 Type 2 diabetes mellitus without complications; K21.9 Gastro-esophageal reflux disease without esophagitis; I25.10 Atherosclerotic heart disease of native coronary artery without angina pectoris; R53.1 Weakness ==

== ENCOUNTER 2021-05-14 08:36 | Outpatient (RCR) | payer MEDICARE, OTHER | END 2021-05-26 12:00 | disposition home or self-care (01) | PROVIDERS: ATTEND Orthopaedic Surgery | DX: M54.9 Dorsalgia, unspecified (principal); I10 Essential (primary) hypertension; E11.9 Type 2 diabetes mellitus without complications; K21.9 Gastro-esophageal reflux disease without esophagitis; I25.10 Atherosclerotic heart disease of native coronary artery without angina pectoris; R53.1 Weakness ==

== ENCOUNTER 2021-06-03 15:10 | Outpatient (RCR) | payer MEDICARE, OTHER | END 2021-06-07 | disposition home or self-care (01) | PROVIDERS: ATTEND Psychiatry & Neurology Neurology | DX: G62.9 Polyneuropathy, unspecified (principal); I11.9 Hypertensive heart disease without heart failure; E11.9 Type 2 diabetes mellitus without complications; R29.898 Other symptoms and signs involving the musculoskeletal system ==

== ENCOUNTER → 2021-07-05 | Outpatient (RCR) | payer MEDICARE, OTHER | END | disposition home or self-care (01) | PROVIDERS: ATTEND Psychiatry & Neurology Neurology | DX: G62.9 Polyneuropathy, unspecified (principal); I10 Essential (primary) hypertension; E11.9 Type 2 diabetes mellitus without complications; K21.9 Gastro-esophageal reflux disease without esophagitis ==

== ENCOUNTER 2021-07-18 12:36 | Observation (INO) | payer MEDICARE, OTHER ==
[~2021-07-18] VITALS: Ht 182.8 cm; Wt 97.5 kg
--- NOTE | 2021-07-18 13:12 | ED Syncope ---
General Chief Complaint: General Problems/Pain Stated Complaint: LOW BP 80/40 Nursing Triage Note: ambulatory down steps, felt hot, set down then slumped over. felt sweaty, whoozy, abdominal fullness, -blood sugar 221, blood pressure 88/40-. Source of Information: Patient Exam Limitations: No Limitations History of Present Illness Date Seen by Provider: Jul 18, 2021 Time Seen by Provider: 12:43 Initial Comments Patient to the ER by private conveyance with his significant other and chief complaint that he felt warm and sweaty while walking in confucian[place] and sat down into pew and slumped over. He did not strike his head. He is on aspirin but no blood thinners. He has a history of coronary disease with a stent known to Dr. Galvez, cardiology. Dr. Ferreira his primary care doctor. He is on Lasix every other day and feels that his swelling is completely gone and thinks maybe he is getting a little too dry because been having some cramps here in the last few days. He does not think he drinks a lot of fluids. No chest pain at any time. No shortness of air. No nausea or vomiting fevers chills cough shortness of air. He is vaccinated with boosters for COVID-19 as well as influenza vaccine. No known sick contacts. His blood sugar was 221 after he came to per his pump and they checked his blood pressure and it was 88/40. Patient states he felt like he had to belch when the episode was happening. He is no longer having any symptoms now. Allergies and Home Medications Allergies Coded Allergies: fluticasone (Unverified Allergy, Unknown, 09/09/20) levofloxacin (Verified Allergy, Unknown, 04/20/15) metformin (Verified Allergy, Unknown, 04/20/15) Patient Home Medication List Home Medication List Reviewed: Yes Acetaminophen (Tylenol Extra Strength) 500 Mg Tablet, 500-1,000 MG PO HS PRN for PAIN-MODERATE (5-7), (Reported) Entered as Reported by: TIMBO LAI on 10/17/19 0843 Albuterol Sulfate (Proair Hfa) 1 Puff Puff, 2 PUFF IH PRN, (Reported) Entered as Reported by: YASMINE AVILES on 09/09/20 1131 Allopurinol (Allopurinol) 300 Mg Tablet, 300 MG PO DAILY PRN, (Reported) Entered as Reported by: TIMBO LAI on 10/17/19 0843 Ascorbic Acid (Vitamin C) 500 Mg Capsule.er, 500 MG PO DAILY, (Reported) Entered as Reported by: YASMINE AVILES on 09/09/20 1131 Aspirin (Aspirin) 81 Mg Tab.chew, 81 MG PO DAILY, (Reported) Entered as Reported by: YASMINE AVILES on 09/09/20 1131 Atorvastatin Calcium (Atorvastatin Calcium) 80 Mg Tablet, 80 MG PO HS, (Reported) Entered as Reported by: TJ WEISS on 07/14/15 1346 Budesonide/Formoterol Fumarate (Symbicort 160-4.5 Mcg Inhaler) 10.2 Gm Hfa.aer.ad, 2 PUFF IH PRN, (Reported) Entered as Reported by: YASMINE AVILES on 09/09/20 1131 Carvedilol (Carvedilol) 12.5 Mg Tablet, 12.5 MG PO BID Prescribed by: MAURICIO PARKER on 10/18/19 1152 Cetirizine HCl (Cetirizine HCl) 10 Mg Tablet, 10 MG PO DAILY, (Reported) Entered as Reported by: TIMBO LAI on 10/17/19 0843 Cholecalciferol (Vitamin D3) (Vitamin D3) 1,250 Mcg Capsule, 1,250 MCG PO DAILY, (Reported) Entered as Reported by: YASMINE AVILES on 09/09/20 1131 Clonidine HCl (Clonidine HCl) 0.1 Mg Tablet, 0.1 MG PO BID, (Reported) Entered as Reported by: YASMINE AVILES on 09/09/20 1131 Cyclobenzaprine HCl (Cyclobenzaprine HCl) 5 Mg Tablet, 5 MG PO BID, (Reported) Entered as Reported by: YASMINE AVILES on 09/09/20 1131 Docusate Sodium (Colace) 100 Mg Capsule, 100 MG PO DAILY, (Reported) Entered as Reported by: YASMINE AVILES on 09/09/20 1131 Doxazosin Mesylate (Doxazosin Mesylate) 4 Mg Tablet, 0 MG PO BID Prescribed by: MAURICIO PARKER on 10/18/19 1152 Fluticasone/Salmeterol (Advair 250-50 Diskus) 1 Each Blst.w.dev, 1 EACH IH PRN, (Reported) Entered as Reported by: YASMINE AVILES on 09/09/20 113 Furosemide (Furosemide) 40 Mg Tablet, 40 MG PO DAILY, (Reported) Entered as Reported by: YASMINE AVILES on 09/09/20 113 Hydrocodone Bit/Acetaminophen (HYDROcodone/APAP 5 MG/325 MG TAB) 1 Tab Tab, 1 TAB PO PRN, (Reported) Entered as Reported by: YASMINE AVILES on 09/09/20 113 Loratadine (Loratadine) 10 Mg Tablet, 10 MG PO DAILY, (Reported) Entered as Reported by: TIMBO LAI on 10/17/19 08 Losartan Potassium (Losartan Potassium) 50 Mg Tablet, 50 MG PO DAILY, (Reported) Entered as Reported by: YASMINE AVILES on 09/09/201130 Melatonin/Pyridoxine HCl (B6) (Melatonin 3 mg Tablet) 1 Each Tablet, 1 EACH PO HS, (Reported) Entered as Reported by: YASMINE AVILES on 09/09/201130 Nitroglycerin (Nitroglycerin) 0.4 Mg Tab.subl, 0.4 MG SL UD PRN for CHEST PAIN, (Reported) Entered as Reported by: TIMBO LAI on 10/17/19 08 Omeprazole (Omeprazole) 20 Mg Capsule.dr, 20 MG PO BIDAC, (Reported) Entered as Reported by: TIMBO LAI on 10/17/19 08 Oxybutynin Chloride (Oxybutynin Chloride) 5 Mg Tablet, 5-10 MG PO HS, (Reported) Entered as Reported by: TIMBO LIA on 10/17/19 08 Polyethylene Glycol 3350 (Miralax) 17 Gm Powd.pack, 17 GM PO DAILY PRN for CONSTIPATION-2ND LINE, (Reported) Entered as Reported by: TIMBO LAI on 10/17/19 08 Pregabalin (Pregabalin) 50 Mg Capsule, 50 MG PO TID, (Reported) Entered as Reported by: YASMINE AVILES on 09/09/20 113 Sennosides/Docusate Sodium (Senna S Tablet) 1 Each Tablet, 2 EACH PO HS PRN for CONSTIPATION-6TH LINE, (Reported) Entered as Reported by: TIMBO LAI on 10/17/19 0843 Spironolactone (Spironolactone) 50 Mg Tablet, 50 MG PO DAILY, (Reported) Entered as Reported by: YASMINE AVILES on 09/09/20 1131 Triamcinolone Acet (Triamcinolone Acetonide 0.1% Cream) 15 Gm Cr, 1 APPLIC TOP BID PRN for RASH/YEAST, (Reported) Entered as Reported by: TIMBO LAI on 10/17/19 0941 Vit B12/Intrins Fact/FA Cmb #2 (Intrinsi M03-Ihxpfe Tablet) 1 Each Tablet, 1 EACH PO DAILY, (Reported) Entered as Reported by: YASMINE AVILES on 09/09/20 1131 Vitamin E Acetate (Vitamin E) 200 Unit Capsule, 200 UNIT PO DAILY, (Reported) Entered as Reported by: YASMINE AVILES on 09/09/20 1131 Review of Systems Constitutional: No chills, No diaphoresis; dizziness EENTM: No ear discharge, No ear pain Respiratory: No cough, No short of breath Cardiovascular: No chest pain, No palpitations Gastrointestinal: No abdominal pain, No nausea Genitourinary: No discharge, No dysuria Musculoskeletal: No back pain, No joint pain All Other Systems Reviewed Negative Unless Noted: Yes Past Hqueguh-Ltzhke-Hrcjpb Hx Patient Social History Tobacco Use?: No Use of E-Cig and/or Vaping dev: No Substance use?: No Alcohol Use?: No Pt feels they are or have been: No Immunizations Up To Date Tetanus Booster (TDap): Less than 5yrs Influenza Vaccine Up-to-Date: Yes; Up-to-Date First/Initial COVID19 Vaccinat: 07/17/20 Second COVID19 Vaccination Samuel: 07/17/20 Third COVID19 Vaccination Date: 07/17/20 Seasonal Allergies Seasonal Allergies: Yes Past Medical History Surgery/Hospitalization HX: One heart stent, MD at age 41, Diabetic, HTN Surgeries: Yes (LEFT KNEE SCOPE X 2; RIGHT CARPAL TUNNEL;HERNIA REPAIR; HEART CATHX3) Abdominal, Cardiac, Coronary Stent, Orthopedic Respiratory: Yes Asthma Currently Using CPAP: No Currently Using BIPAP: No Cardiac: Yes (STENT X1 , MD AT 41) Chronic Edema/Swelling, Coronary Artery Disease, Heart Attack, High Cholesterol, Hypertension Neurological: Yes Neuropathy Reproductive Disorders: No Sexually Transmitted Disease: No HIV/AIDS: No Genitourinary: Yes Renal Failure Gastrointestinal: Yes (hep A) Gastroesophageal Reflux, Hepatitis Musculoskeletal: Yes Arthritis, Back Injury, Gout Endocrine: Yes Diabetes, Insulin dep Loss of Vision: Denies Hearing Impairment: Hearing Aide Right Cancer: No Psychosocial: No Integumentary: No Blood Disorders: No Adverse Reaction/Blood Tranf: No Family Medical History Patient reports no known family medical history. No Pertinent Family Hx Physical Exam Vital Signs Vital Signs - First Documented 07/18/21 12:53 Temp 36.0 Pulse 55 Resp 18 B/P (MAP) 137/77 (97) Pulse Ox 98 O2 Delivery Room Air Capillary Refill : Less Than 3 Seconds Height, Weight, BMI Height: 6'1.00" Weight: 235lbs. 6.0oz. 106.453158pe; 28.00 BMI Method:Stated General Appearance: No Apparent Distress, WD/WN HEENT: PERRL/EOMI, Pharynx Normal, Moist Mucous Membranes Cardiovascular: Regular Rate, Rhythm, Normal Peripheral Pulses Respiratory: Lungs Clear, Normal Breath Sounds, No Accessory Muscle Use, No Respiratory Distress Gastrointestinal: Normal Bowel Sounds, Non Tender, Soft Extremities: Normal Capillary Refill, Normal Inspection, Normal Range of Motion, Non Tender, No Calf Tenderness, No Pedal Edema Neurologic/Psychiatric: Alert, Oriented x3, No Motor/Sensory Deficits Cranial Nerves: Normal Hearing, Normal Speech, PERRL Motor/Sensory: No Motor Deficit, No Sensory Deficit Skin: Normal Color, Warm/Dry Progress/Results/Core Measures Results/Orders Lab Results Laboratory Tests Test 07/18/21 13:00 07/18/21 13:54 Range/Units White Blood Count 9.2 4.3-11.0 10^3/uL Red Blood Count 4.18 L 4.30-5.52 10^6/uL Hemoglobin 12.4 L 13.3-17.7 g/dL Hematocrit 39 L 40-54 % Mean Corpuscular Volume 93 80-99 fL Mean Corpuscular Hemoglobin 30 25-34 pg Mean Corpuscular Hemoglobin Concent 32 32-36 g/dL Red Cell Distribution Width 13.8 10.0-14.5 % Platelet Count 214 130-400 10^3/uL Mean Platelet Volume 11.5 9.0-12.2 fL Immature Granulocyte % (Auto) 0 % Neutrophils (%) (Auto) 58 42-75 % Lymphocytes (%) (Auto) 24 12-44 % Monocytes (%) (Auto) 7 0-12 % Eosinophils (%) (Auto) 10 0-10 % Basophils (%) (Auto) 1 0-10 % Neutrophils # (Auto) 5.3 1.8-7.8 10^3/uL Lymphocytes # (Auto) 2.2 1.0-4.0 10^3/uL Monocytes # (Auto) 0.7 0.0-1.0 10^3/uL Eosinophils # (Auto) 0.9 H 0.0-0.3 10^3/uL Basophils # (Auto) 0.1 0.0-0.1 10^3/uL Immature Granulocyte # (Auto) 0.0 0.0-0.1 10^3/uL Sodium Level 139 135-145 MMOL/L Potassium Level 3.5 L 3.6-5.0 MMOL/L Chloride Level 105 98-107 MMOL/L Carbon Dioxide Level 22 21-32 MMOL/L Anion Gap 12 5-14 MMOL/L Blood Urea Nitrogen 33 H 7-18 MG/DL Creatinine 3.13 H 0.60-1.30 MG/DL Estimat Glomerular Filtration Rate 20 BUN/Creatinine Ratio 11 Glucose Level 206 H 70-105 MG/DL Calcium Level 9.0 8.5-10.1 MG/DL Corrected Calcium 8.9 8.5-10.1 MG/DL Magnesium Level 1.4 L 1.6-2.4 MG/DL Total Bilirubin 0.5 0.1-1.0 MG/DL Aspartate Amino Transf (AST/SGOT) 20 5-34 U/L Alanine Aminotransferase (ALT/SGPT) 14 0-55 U/L Alkaline Phosphatase 75 40-136 U/L Troponin I 0.037 H <0.028 NG/ML C-Reactive Protein High Sensitivity 0.26 0.00-0.50 MG/DL Total Protein 7.5 6.4-8.2 GM/DL Albumin 4.1 3.2-4.5 GM/DL Urine Color YELLOW Urine Clarity CLEAR Urine pH 6.0 5-9 Urine Specific [place] 1.020 1.016-1.022 Urine Protein 2+ H NEGATIVE Urine Glucose (UA) NEGATIVE NEGATIVE Urine Ketones NEGATIVE NEGATIVE Urine Nitrite NEGATIVE NEGATIVE Urine Bilirubin NEGATIVE NEGATIVE Urine Urobilinogen 0.2 < = 1.0 MG/DL Urine Leukocyte Esterase NEGATIVE NEGATIVE Urine RBC (Auto) NEGATIVE NEGATIVE Urine RBC NONE /HPF Urine WBC NONE /HPF Urine Squamous Epithelial Cells 2-5 /HPF Urine Crystals NONE /LPF Urine Bacteria FEW H /HPF Urine Casts NONE /LPF Urine Mucus NEGATIVE /LPF Urine Culture Indicated NO My Orders Orders - JUANIS,GENESIS J Orthostatic Vital Signs (Adult (07/18/21 13:02) Cbc With Automated Diff (07/18/21 13:02) Comprehensive Metabolic Panel (07/18/21 13:02) Hs C Reactive Protein (07/18/21 13:02) Ua Culture If Indicated (07/18/21 13:02) Ekg Tracing (07/18/21 13:02) Continuous Ekg Monitoring (07/18/21 13:02) Troponin I Raza (07/18/21 13:02) Chest 1 View, Ap/Pa Only (07/18/21 13:02) Magnesium (07/18/21 13:02) Potassium Cl 10meq/50ml Ivpb (Kcl 10 Meq (07/18/21 14:00) Magnesium 1 Gm/100 Ml Ivpb (Magnesium [place] (07/18/21 14:00) Ed Iv/Invasive Line Start (07/18/21 14:07) Ns Iv 500 Ml (Sodium Chloride 0.9%) (07/18/21 14:15) Medications Given in ED Current Medications Medications Dose Ordered Sig/Rufino Route Start Time Stop Time Status Last Admin Dose Admin Magnesium Sulfate/ Dextrose 100 ml @ 100 mls/hr ONCE ONCE IV 07/18/21 14:00 07/18/21 14:59 07/18/21 14:33 100 MLS/HR Potassium Chloride 50 ml @ 50 mls/hr ONCE ONCE IV 07/18/21 14:00 07/18/21 14:59 07/18/21 14:33 50 MLS/HR Sodium Chloride 500 ml @ 0 mls/hr Q0M ONCE IV 07/18/21 14:15 07/18/21 14:16 DC 07/18/21 14:33 0 MLS/HR Vital Signs/I&O 07/18/21 07/18/21 12:53 13:36 Temp 36.0 Pulse 55 67 63 65 Resp 18 B/P (MAP) 137/77 (97) 129/75 (93) 131/79 (96) 129/78 (95) Pulse Ox 98 O2 Delivery Room Air Blood Pressure Mean: 97 Progress Progress Note #1: Time: 13:09 Progress Note Orthostats, suspect dehydration or vasovagal syncope. Blood and urine Progress Note #2: Time: 14:00 Progress Note We will give him magnesium and potassium IV along with 500 cc of fluid. He is not orthostatic. He has a detectable troponin and a blood pressure that was below 90 systolic giving him a [place] syncopal score of 3 points, medium risk. We discussed the case with cardiology, Dr. Moreno and he agrees with observation, repeat troponins, telemetry. Initial ECG Impression Date: Jul 18, 2021 Initial ECG Impression Time: 12:14 Initial ECG Rate: 63 Initial ECG Rhythm: Normal Sinus Initial ECG Intervals: CT (226) Initial ECG Impression: Normal Comment Normal sinus rhythm with borderline prolonged CT interval of 226 ms. No cl inically relevant ST elevation or depression Diagnostic Imaging Diagonstic Imaging: Xray Plain Films/CT/US/NM/MRI: chest Comments [facility], [facility]. [place], [place] NAME: DOMINICK ARELLANO Jay [facility] REC#: [id number] PT STATUS: REG ER : 1950 PHYSICIAN: GENESIS OLIVAREZ MD ADMIT DATE: 07/18/21/ER Draft Date of Exam:07/18/21 CHEST 1 VIEW, AP/PA ONLY EXAMINATION: Chest, 1 view. HISTORY: Syncope. COMPARISON: 10/16/2019. FINDINGS: Heart size and pulmonary vasculature are normal. The lungs are clear without consolidation, pleural effusion, or pneumothorax. Degenerative changes of the thoracic spine. Osseous structures are otherwise intact. IMPRESSION: No acute radiographic abnormality in the chest. Dictated on workstation # [id number] Dict: 07/18/21 1337 Trans: 07/18/21 1340 JAIDA [id number] Interpreted by: CLAUDIA BROWN DO Electronically signed by: Reviewed: Reviewed by Me Departure Communication (Admissions) Time/Spoke to Admitting Phy: 14:[address] Bedolla agrees to observe the patient with consult cardiolo gy. N.p.o. after midnight. Time/Spoke to Consulting Phy: 13:45 Discussed the case with Dr. Moreno, cardiology he agrees to consult on the case for an observation on telemetry. Delta troponins. Impression Primary Impression: Syncope Qualified Codes: R55 - Syncope and collapse Additional Impressions: Hypokalemia Hypomagnesemia Dehydration Elevated troponin Disposition: ADMITTED INPATIENT Condition: Stable Admissions Decision to Admit Reason: Admit from ER (General) Decision to Admit/Date: Jul 18, 2021 Time/Decision to Admit Time: 13:45 Departure-Patient Inst. Referrals: ZULEMA FERREIRA MD (PCP/Family) Primary Care Physician GENESIS OLIVAREZ Jul 18, 2021 13:12
[2021-07-18 13:13] LABS: BASOPHILS # (AUTO) 0.1 10^3/uL (0.0-0.1); BASOPHILS % (AUTO) 1 % (0-10); EOSINOPHILS # (AUTO) 0.9 10^3/uL (0.0-0.3); EOSINOPHILS % (AUTO) 10 % (0-10); HEMATOCRIT 39 % (40-54); HEMOGLOBIN 12.4 g/dL (13.3-17.7); LYMPHOCYTES # (AUTO) 2.2 10^3/uL (1.0-4.0); LYMPHOCYTES % (AUTO) 24 % (12-44); MEAN CORPUSCULAR HEMOGLOBIN 30 pg (25-34); MEAN CORPUSCULAR HGB CONC 32 g/dL (32-36); MEAN CORPUSCULAR VOLUME 93 fL (80-99); MEAN PLATELET VOLUME 11.5 fL (9.0-12.2); MONOCYTES # (AUTO) 0.7 10^3/uL (0.0-1.0); MONOCYTES % (AUTO) 7 % (0-12); NEUTROPHILS # (AUTO) 5.3 10^3/uL (1.8-7.8); NEUTROPHILS % (AUTO) 58 % (42-75); PLATELET COUNT 214 10^3/uL (130-400); WHITE BLOOD COUNT 9.2 10^3/uL (4.3-11.0)
[2021-07-18 13:21] LABS: ALBUMIN 4.1 GM/DL (3.2-4.5); POTASSIUM 3.5 MMOL/L (3.6-5.0)
[2021-07-18 13:24] LABS: TOTAL PROTEIN 7.5 GM/DL (6.4-8.2)
[2021-07-18 13:25] LABS: BILIRUBIN,TOTAL 0.5 MG/DL (0.1-1.0)
[2021-07-18 13:27] LABS: CREATININE SERUM 3.13 MG/DL (0.60-1.30)
[2021-07-18 13:31] LABS: MAGNESIUM 1.4 MG/DL (1.6-2.4)
[2021-07-18 13:36] VITALS: BP_SYST 129; BP_SYST 131; BP_DIAS 75; BP_DIAS 78; BP_DIAS 79
--- NOTE | 2021-07-18 13:41 | Diagnostic Imaging Report ---
EXAMINATION: Chest, 1 view. HISTORY: Syncope. COMPARISON: 10/16/2019. FINDINGS: Heart size and pulmonary vasculature are normal. The lungs are clear without consolidation, pleural effusion, or pneumothorax. Degenerative changes of the thoracic spine. Osseous structures are otherwise intact. IMPRESSION: No acute radiographic abnormality in the chest. Dictated by: Dictated on workstation # [id number]
[2021-07-18 14:00] LABS: BILIRUBIN,URINE NEGATIVE (NEGATIVE); CLARITY,URINE CLEAR; COLOR,URINE YELLOW; GLUCOSE, URINE (UA) NEGATIVE (NEGATIVE); KETONES,URINE NEGATIVE (NEGATIVE); LEUKOCYTE ESTERASE ,URINE NEGATIVE (NEGATIVE); NITRITE,URINE NEGATIVE (NEGATIVE); PROTEIN,URINE 2+ (NEGATIVE)
[2021-07-18] MEDS ORDERED: MAGNESIUM 1 GM/100 ML IVPB 100 ML IV ONE (14:00)
[2021-07-18] MEDS ORDERED: POTASSIUM CL 10MEQ/50ML IVPB 50 ML IV ONE (14:00)
[2021-07-18 14:07] LABS: BACTERIA,URINE FEW /HPF
[2021-07-18] MEDS ORDERED: NS IV 500 ML 500 ML IV ONE (14:15)
[2021-07-18] MEDS ORDERED: ONDANSETRON 4 MG/2 ML (SDV) Z0FRAN IV PRN (15:45)
[2021-07-18] MEDS ORDERED: CATHETER FLUSH 10 ML SYR IV PRN (15:45)
[2021-07-18 16:15] VITALS: BP 143/74
[2021-07-18] MEDS ORDERED: ALLO300T2 PO (18:15)
[2021-07-18] MEDS ORDERED: FURO80TA3 PO (18:15)
[2021-07-18 19:04] VITALS: BP 147/73
[2021-07-18] MEDS ORDERED: inSUlin ASPART (NovoLOG) 1 UNIT/0.01 ML (CHARGE PER UNIT) SC SCH (20:00)
[2021-07-18] MEDS ORDERED: OXYBUTYNIN (DITROPAN) 5 MG TAB PO SCH (21:00)
[2021-07-18] MEDS: MAGNESIUM OXIDE (MAG-OX)400 MG TAB PO SCH (21:35)
[2021-07-18] MEDS: inSUlin ASPART (NovoLOG) 1 UNIT/0.01 ML (CHARGE PER UNIT) SC SCH (21:36)
[2021-07-18] MEDS: KCL 20 MEQ TAB (K-DUR) PO SCH (21:36)
[2021-07-18] MEDS: CATHETER FLUSH 10 ML SYR IV SCH (21:36)
[2021-07-19] VITALS: BP 152/72
[2021-07-19 04:00] VITALS: BP 173/80
[2021-07-19 05:12] LABS: BASOPHILS # (AUTO) 0.1 10^3/uL (0.0-0.1); BASOPHILS % (AUTO) 1 % (0-10); EOSINOPHILS # (AUTO) 0.9 10^3/uL (0.0-0.3); EOSINOPHILS % (AUTO) 10 % (0-10); HEMATOCRIT 36 % (40-54); HEMOGLOBIN 11.3 g/dL (13.3-17.7); LYMPHOCYTES % (AUTO) 33 % (12-44); MEAN CORPUSCULAR HEMOGLOBIN 29 pg (25-34); MEAN CORPUSCULAR HGB CONC 32 g/dL (32-36); MEAN CORPUSCULAR VOLUME 92 fL (80-99); MONOCYTES # (AUTO) 0.8 10^3/uL (0.0-1.0); MONOCYTES % (AUTO) 9 % (0-12); NEUTROPHILS # (AUTO) 4.2 10^3/uL (1.8-7.8); NEUTROPHILS % (AUTO) 47 % (42-75); PLATELET COUNT 189 10^3/uL (130-400)
[2021-07-19 05:36] LABS: CALCIUM 8.4 MG/DL (8.5-10.1); CREATININE SERUM 2.87 MG/DL (0.60-1.30); POTASSIUM 3.4 MMOL/L (3.6-5.0)
[2021-07-19] MEDS: inSUlin ASPART (NovoLOG) 1 UNIT/0.01 ML (CHARGE PER UNIT) SC SCH ×2 (06:19→10:56)
[2021-07-19] MEDS: CATHETER FLUSH 10 ML SYR IV SCH (06:30)
[2021-07-19] MEDS ORDERED: MULTIVIT W/MINERALS TAB (THERAGRAN M) PO SCH (07:00)
[2021-07-19 08:23] VITALS: BP 173/80
[2021-07-19] MEDS ORDERED: ASPIRIN 81 MG CHEW (CHILDREN'S ASA) PO SCH ×2 (09:00)
[2021-07-19] MEDS ORDERED: VITAMIN D2 1.25 MG (50,000 UNITS) CAP PO SCH (09:00)
[2021-07-19] MEDS ORDERED: ASCORBIC ACID (VIT C) 500 MG TABLET PO SCH (09:00)
[2021-07-19] MEDS ORDERED: LORATADINE (CLARITIN) 10 MG TAB PO SCH (09:00)
[2021-07-19] MEDS: MAGNESIUM OXIDE (MAG-OX)400 MG TAB PO SCH (09:16)
[2021-07-19] MEDS: KCL 20 MEQ TAB (K-DUR) PO SCH (09:21)
[2021-07-19 11:20] VITALS: BP 168/90
--- NOTE | 2021-07-19 11:34 | Consultation-Cardiology ---
HPI-Cardiology Cardiology Consultation Date of Consultation 07/19/21 Date of Admission Time Seen by Provider: 08:50 Indication: Syncope, CAD HPI Patient is a 71 y/o male with history of CAD, HTN, HLP, CKD. 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 Galvez. Presented to the ER yesterday with complaints of syncopal episode while at [employer]. Patient reports to me that he began feeling dizzy and lightheaded when walking down the isle, sat down on pew and then slouched over. BP at the time noted to be in the 80's systolically. Denies any recent chest pain or dyspnea. Denies any further dizziness or lightheadedness. Home Medications & Allergies Allergies: Coded Allergies: fluticasone (Verified Allergy, Unknown, 07/18/21) levofloxacin (Verified Allergy, Unknown, 07/18/21) metformin (Verified Allergy, Unknown, 07/18/21) Home Medication List Reviewed: Yes [id number]-[id number]-[id number] Hx Patient Social History Marital Status: Employed/Student: employed Smoking Status: Never a Smoker Former smoker/When Quit: Oct 15, 1975 2nd Hand Smoke Exposure: No Recent Hopitalizations: No Have you traveled recently?: No Alcohol Use?: No Immunizations Up To Date Tetanus Booster (TDap): Less than 5yrs Date of Pneumonia Vaccine: Feb 05, 2019 Date of Influenza Vaccine: Feb 08, 2021 Past Medical History CAD, HTN, HLP, CKD Family Medical History Significant Family History: No Pertinent Family Hx Family History: Patient reports no known family medical history. Review of Systems-General Review of Systems Constitutional: No chills, No diaphoresis; dizziness EENTM: No ear discharge, No ear pain Respiratory: No cough, No short of breath Cardiovascular: No chest pain, No edema; Hx of Intervention; No palpitations Gastrointestinal: No abdominal pain, No nausea Genitourinary: No discharge, No dysuria Musculoskeletal: No back pain, No joint pain All Other Systems Reviewed Negative Unless Noted: Yes Reviewed Test Results Reviewed Test Results Lab Laboratory Tests 07/18/21 13:00: White Blood Count 9.2, Red Blood Count 4.18L, Hemoglobin 12.4L, Hematocrit 39L, Mean Corpuscular Volume 93, Mean Corpuscular Hemoglobin 30, Mean Corpuscular Hemoglobin Concent 32, Red Cell Distribution Width 13.8, Platelet Count 214, Mean Platelet Volume 11.5, Immature Granulocyte % (Auto) 0, Neutrophils (%) (Auto) 58, Lymphocytes (%) (Auto) 24, Monocytes (%) (Auto) 7, Eosinophils (%) (Auto) 10, Basophils (%) (Auto) 1, Neutrophils # (Auto) 5.3, Lymphocytes # (Auto) 2.2, Monocytes # (Auto) 0.7, Eosinophils # (Auto) 0.9H, Basophils # (Auto) 0.1, Immature Granulocyte # (Auto) 0.0, Sodium Level 139, Potassium Level 3.5L, Chloride Level 105, Carbon Dioxide Level 22, Anion Gap 12, Blood Urea Nitrogen 33H, Creatinine 3.13H, Estimat Glomerular Filtration Rate 20, BUN/Creatinine Ratio 11, Glucose Level 206H, Calcium Level 9.0, Corrected Calcium 8.9, Magnesium Level 1.4L, Total Bilirubin 0.5, Aspartate Amino Transf (AST/SGOT) 20, Alanine Aminotransferase (ALT/SGPT) 14, Alkaline Phosphatase 75, Troponin I 0.037H, C-Reactive Protein High Sensitivity 0.26, Total Protein 7.5, Albumin 4.1 07/18/21 13:54: Urine Color YELLOW, Urine Clarity CLEAR, Urine pH 6.0, Urine Specific Alston 1.020, Urine Protein 2+H, Urine Glucose (UA) NEGATIVE, Urine Ketones NEGATIVE, Urine Nitrite NEGATIVE, Urine Bilirubin NEGATIVE, Urine Urobilinogen 0.2, Urine Leukocyte Esterase NEGATIVE, Urine RBC (Auto) NEGATIVE, Urine RBC NONE, Urine WBC NONE, Urine Squamous Epithelial Cells 2-5, Urine Crystals NONE, Urine Bacteria FEWH, Urine Casts NONE, Urine Mucus NEGATIVE, Urine Culture Indicated NO 07/18/21 16:19: Glucometer 136H 07/18/21 19:10: Troponin I < 0.028 07/18/21 21:10: Glucometer 125H 07/19/21 01:05: Troponin I 0.030H 07/19/21 04:45: White Blood Count 9.0, Red Blood Count 3.87L, Hemoglobin 11.3L, Hematocrit 36L, Mean Corpuscular Volume 92, Mean Corpuscular Hemoglobin 29, Mean Corpuscular Hemoglobin Concent 32, Red Cell Distribution Width 13.9, Platelet Count 189, Mean Platelet Volume 12.0, Immature Granulocyte % (Auto) 0, Neutrophils (%) (Auto) 47, Lymphocytes (%) (Auto) 33, Monocytes (%) (Auto) 9, Eosinophils (%) (Auto) 10, Basophils (%) (Auto) 1, Neutrophils # (Auto) 4.2, Lymphocytes # (Auto) 3.0, Monocytes # (Auto) 0.8, Eosinophils # (Auto) 0.9H, Basophils # (Auto) 0.1, Immature Granulocyte # (Auto) 0.0, Sodium Level 140, Potassium Level 3.4L, Chloride Level 110H, Carbon Dioxide Level 20L, Anion Gap 10, Blood Urea Nitrogen 34H, Creatinine 2.87H, Estimat Glomerular Filtration Rate 23, BUN/ Creatinine Ratio 12, Glucose Level 138H, Calcium Level 8.4L 07/19/21 05:41: Glucometer 119H 07/19/21 10:54: Glucometer 123H ECG Impression ECG Initial ECG Rhythm: Normal Sinus Physical Exam Physical Exam Vital Signs Vital Signs - First Documented 07/18/21 12:53 Temp 36.0 Pulse 55 Resp 18 B/P (MAP) 137/77 (97) Pulse Ox 98 O2 Delivery Room Air Capillary Refill : Less Than 3 Seconds Height, Weight, BMI Height: 6'1.00" Weight: 235lbs. 6.0oz. 106.832492gi; 29.17 BMI Method:Stated General Appearance: No Apparent Distress, WD/WN HEENT: PERRL/EOMI, Pharynx Normal, Moist Mucous Membranes Respiratory: Lungs Clear, Normal Breath Sounds, No Accessory Muscle Use, No Respiratory Distress Cardiovascular: Regular Rate, Rhythm, Normal Peripheral Pulses Gastrointestinal: Normal Bowel Sounds, Non Tender, Soft Extremity: Normal Capillary Refill, Normal Inspection, Normal Range of Motion, Non Tender, No Calf Tenderness, No Pedal Edema Neurologic/Psychiatric: Alert, Oriented x3, No Motor/Sensory Deficits Skin: Normal Color, Warm/Dry A/P-Cardiology Admission Diagnosis Syncope HTN CAD CKD Assessment/Plan Syncope, likely vasovagal syncope. EKG showing no acute ST changes, will continue to monitor. Consider stress test as outpatient. HTN, noted to be hypotensive, blood pressure currently controlled. Continue to monitor. Chronic kidney disease stage 4, follows with nephrology at , has appt this afternoon. Renal u/s of 10-15-2019. Bilateral renal cystic disease. No calculus or hydronephrosis is detected. Probable bladder calculus. Coronary artery disease with history of coronary artery stenting with Promus 3.5 x 23-mm stent in 2008, stable on subsequent cardiac catheterization of June 2010. No evidence of myocardial ischemia or infarction and LVEF 73% on MPI of 10/18/19 2D Echo of 10/17/19 showed LVEF 60-65%. Grade 1 diastolic dysfunction, PASP WNL, I will reevaluate 2D Echo prior to discharge. Hypokalemia, replace and continue to monitor. DM- managed by PCP Intolerance to BUCKY-inhib due to cough. Degenerative joint disease. Sleep apnea, maintained on C-PAP therapy Vertigo, suspected Meniere's dz being treated ENT physician at [facility] Thank you for allowing us to participate in the management of Mr. Kasper. This is Casey Billings PA-C, as a scribe for Dr. Moreno. Patient was seen and evaluated with Casey, I interviewed and examined the patient. Agree with the current scribed note. Patient reported syncopal episode, has similar episode in the past. Was hypotensive on arrival to the hospital, currently hypotensive, has underlying chronic kidney disease stage IV Has history of coronary artery disease, no chest pain was reported. 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 Monitor electrolytes, planning for stress test as an outpatient with Dr. Galvez We will arrange for follow-up as an outpatient with Dr. Galvez. CASEY BAER Jul 19, 2021 11:34 BIPIN MORENO MD Jul 19, 2021 12:04
--- NOTE | 2021-07-19 19:02 | Discharge Summary ---
Discharge Summary Hospital Course Problems/Dx: (1) Orthostatic hypotension Status: Acute (2) Acute kidney injury superimposed on chronic kidney disease Status: Acute (3) CKD (chronic kidney disease) stage 4, GFR 15-29 ml/min Status: Chronic Hospital Course Date of Admission: Jul 18, 2021 at 14:10 Admission Diagnosis : Orthostatic hypotension, AUDI on CKD4 Family Physician/Provider: Zulema Ferreira MD Date of Discharge: 07/19/21 Discharge Diagnosis: Orthostatic hypotension, AUDI on CKD4 Hospital Course: Fredis Kasper Jr is a 71 year old male who presented with syncope. He was at [employer] and felt sweaty and dizzy, then he briefly lost consciousness. 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 He was in his normal state of health prior to this. He had no lightheadedness or dizziness leading up to the event. He denies chest pain and palpitations. He was found to be dehydrated. He had an AUDI on his baseline CKD4. He was given some fluids and his kidney function and symptoms im proved. He was asymptomatic at the time of discharge. Cardiology was consulted and assisted with his care. He underwent an echocardiogram which showed normal EF with grade I diastolic dysfunction. He was instructed to hold his Lasix. He had no lower extremity edema. He will follow up with Cardiology, Neprhology, and his PCP. Labs and Pending Lab Test: Laboratory Tests 07/18/21 19:10: Troponin I < 0.028 07/18/21 21:10: Glucometer 125H 07/19/21 01:05: Troponin I 0.030H 07/19/21 04:45: White Blood Count 9.0, Red Blood Count 3.87L, Hemoglobin 11.3L, Hematocrit 36L, Mean Corpuscular Volume 92, Mean Corpuscular Hemoglobin 29, Mean Corpuscular Hemoglobin Concent 32, Red Cell Distribution Width 13.9, Platelet Count 189, Mean Platelet Volume 12.0, Immature Granulocyte % (Auto) 0, Neutrophils (%) (Auto) 47, Lymphocytes (%) (Auto) 33, Monocytes (%) (Auto) 9, Eosinophils (%) (Auto) 10, Basophils (%) (Auto) 1, Neutrophils # (Auto) 4.2, Lymphocytes # (Auto) 3.0, Monocytes # (Auto) 0.8, Eosinophils # (Auto) 0.9H, Basophils # (Auto) 0.1, Immature Granulocyte # (Auto) 0.0, Sodium Level 140, Potassium Level 3.4L, Chloride Level 110H, Carbon Dioxide Level 20L, Anion Gap 10, Blood Urea Nitrogen 34H, Creatinine 2.87H, Estimat Glomerular Filtration Rate 23, BUN/Creatinine Ratio 12, Glucose Level 138H, Calcium Level 8.4L 07/19/21 05:41: Glucometer 119H 07/19/21 10:54: Glucometer 123H Home Meds Active Carvedilol 12.5 Mg Tablet 12.5 Mg PO BID Doxazosin Mesylate 4 Mg Tablet 0 Mg PO BID Reported Allopurinol 300 Mg Tablet 300 Mg PO DAILY Vitamin D3 (Cholecalciferol (Vitamin D3)) 1,250 Mcg Capsule 1,250 Mcg PO DAILY Vitamin E (Vitamin E Acetate) 200 Unit Capsule 200 Unit PO DAILY Vitamin C (Ascorbic Acid) 500 Mg Capsule.er 500 Mg PO DAILY Intrinsi T63-Maieua Tablet (Vit B12/Intrins Fact/FA Cmb #2) 1 Each Tablet 1 Each PO DAILY Symbicort 160-4.5 Mcg Inhaler (Budesonide/Formoterol Fumarate) 10.2 Gm Hfa.aer.ad 2 Puff IH PRN Spironolactone 50 Mg Tablet 50 Mg PO DAILY Proair Hfa (Albuterol Sulfate) 1 Puff Puff 2 Puff IH PRN 1 PUFF = 90 MCG Melatonin 3 mg Tablet (Melatonin/Pyridoxine HCl (B6)) 1 Each Tablet 1 Each PO HS Losartan Potassium 50 Mg Tablet 50 Mg PO DAILY HYDROcodone/APAP 5 MG/325 MG TAB (Acetaminophen/Hydrocodone Bitart) 1 Tab Tab 1 Tab PO PRN Pregabalin 50 Mg Capsule 50 Mg PO TID Cyclobenzaprine HCl 5 Mg Tablet 5 Mg PO BID Colace (Docusate Sodium) 100 Mg Capsule 100 Mg PO DAILY Clonidine HCl 0.1 Mg Tablet 0.1 Mg PO BID Advair 250-50 Diskus (Fluticasone/Salmeterol) 1 Each Blst.w.dev 1 Each IH PRN Aspirin 81 Mg Tab.chew 81 Mg PO DAILY Triamcinolone Acetonide 0.1% Cream (Triamcinolone Acet) 15 Gm Cr 1 Applic TOP BID PRN APPLY TO THE UNDER ARMS, GROIN AND BACK Miralax (Polyethylene Glycol 3350) 17 Gm Powd.pack 17 Gm PO DAILY PRN Senna S Tablet (Sennosides/Docusate Sodium) 1 Each Tablet 2 Each PO HS PRN Tylenol Extra Strength (Acetaminophen) 500 Mg Tablet 500-1,000 Mg PO HS PRN Nitroglycerin 0.4 Mg Tab.subl 0.4 Mg SL UD PRN Omeprazole 20 Mg Capsule.dr 20 Mg PO BIDAC Cetirizine HCl 10 Mg Tablet 10 Mg PO DAILY Oxybutynin Chloride 5 Mg Tablet 5-10 Mg PO HS TAKES 1-2 (5MG) TABS Loratadine 10 Mg Tablet 10 Mg PO DAILY Allopurinol 300 Mg Tablet 300 Mg PO DAILY PRN Atorvastatin Calcium 80 Mg Tablet 80 Mg PO HS Assessment/Pt Instructions Take medications as prescribed. Stop Lasix for now. Follow up with your PCP, cardiology, and nephrology. Return with worsening symptoms. Discharge Planning: >30 minutes discharge planning Discharge Instructions Discharge Diet: Low Sodium Diet Activity as Tolerated: Yes Consultations Cardiology Discharge Physical Examination Vital Signs Vital Signs Date Time Temp Pulse Resp B/P (MAP) Pulse Ox O2 Delivery O2 Flow Rate FiO2 07/19/21 13:00 63 07/19/21 11:20 36.7 20 168/90 (116) 99 Room Air General Appearance: No Apparent Distress, WD/WN Respiratory: Lungs Clear, No Respiratory Distress Cardiovascular: Regular Rate, Rhythm, No Murmur Gastrointestinal: Normal Bowel Sounds, Non Tender, Soft Extremity: Normal Inspection, No Pedal Edema Skin: Normal Color, Warm/Dry Neurologic/Psychiatric: Alert, Normal Mood/Affect Allergies: Coded Allergies: fluticasone (Verified Allergy, Unknown, 07/18/21) levofloxacin (Verified Allergy, Unknown, 07/18/21) metformin (Verified Allergy, Unknown, 07/18/21) Copy Copies To 1: ZULEMA FERREIRA MD Discharge Summary Date of Admission Jul 18, 2021 at 14:10 Date of Discharge Jul 19, 2021 at 13:45 Discharge Date: Jul 19, 2021 Discharge Time: 13:45 Admission Diagnosis Orthostatic hypotension, AUDI on CKD4 Consults/Procedures Consulations Cardiology Discharge Diagnosis (1) Orthostatic hypotension Status: Acute (2) Acute kidney injury superimposed on chronic kidney disease Status: Acute (3) CKD (chronic kidney disease) stage 4, GFR 15-29 ml/min Status: Chronic JENNIFER ROGERS MD Jul 19, 2021 19:00
--- NOTE | 2021-07-20 14:35 | Physician Query Clarification ---
PQ-Further Specificity Admission/Discharge Admission Date: Jul 18, 2021 at 14:10 Discharge Date: Jul 19, 2021 at 13:45 Dr. Moreno, The medical record reflects the following clinical scenario: History/Risk Factors: orthostatic hypotension, AUDI, dehydration, HTN w/CKD stg 4 Clinical Findings: Troponin 0.037 Treatment: IV Potassium, IV Magnesium sulfate, IV Sodium chloride Question: Can you further specify the elevated troponin per the clinical indicators above? Please document a response in the Progress Notes or Discharge Summary. 1. Type 2 DC 2. elevated troponin not further specified 3. Other, with explanation of the clinical findings. 4. Clinically undetermined, no explanation for the clinical findings. PHYSICIAN RESPONSE Can you specify per above: 1 Please remember a lack of response to the above will prompt a phone page by CDI/Coding staff. In responding to this query, please exercise your independent professional judgment. The purpose of this communication is to more accurately reflect the complexity of your patients condition. The fact that a question is asked does not imply that any particular answer is desired or expected. Thank you for your timely response to this clarification. Requestors name: Raffaele THIS PHYSICIAN QUERY FORM IS A PERMANENT PART OF THE MEDICAL RECORD RAFFAELE WILKERSON Jul 20, 2021 14:35 BIPIN MORENO MD Jul 20, 2021 14:42
== END 2021-07-19 13:24 | disposition home or self-care (01) ==
LOC: EDUNIT# 12:36 → ER 12:38 → 4TH 14:10 → UNDOADMIN 14:10 → 4TH 15:49 → UNDODISIN 07-19 13:45
PROVIDERS: ADMIT Family Medicine; ATTEND Internal Medicine
PROC: 8E0ZXY6 Isolation (ICD-10-PCS; principal; 2021-07-18)
DX: I95.1 Orthostatic hypotension (principal); I21.A1 Myocardial infarction type 2; N17.9 Acute kidney failure, unspecified; N18.4 Chronic kidney disease, stage 4 (severe); E86.0 Dehydration; I12.9 Hypertensive chronic kidney disease with stage 1 through stage 4 chronic kidney disease, or unspecified chronic kidney disease; E11.22 Type 2 diabetes mellitus with diabetic chronic kidney disease; I25.10 Atherosclerotic heart disease of native coronary artery without angina pectoris; E11.40 Type 2 diabetes mellitus with diabetic neuropathy, unspecified; J45.909 Unspecified asthma, uncomplicated; E78.5 Hyperlipidemia, unspecified; K21.9 Gastro-esophageal reflux disease without esophagitis; H91.91 Unspecified hearing loss, right ear; E87.6 Hypokalemia; E83.42 Hypomagnesemia; I25.2 Old myocardial infarction; M19.91 Primary osteoarthritis, unspecified site; G47.30 Sleep apnea, unspecified; R42 Dizziness and giddiness; Z87.891 Personal history of nicotine dependence; Z79.82 Long term (current) use of aspirin; Z97.4 Presence of external hearing-aid; Z88.1 Allergy status to other antibiotic agents; Z88.8 Allergy status to other drugs, medicaments and biological substances
CPT/HCPCS: 71045; 80048; 80053; 81000; 82947 ×2; 83735; 84484 ×2; 85025 ×2; 86141; 93005; 93306; 99284; G0378; 36415

== ENCOUNTER → 2021-08-05 | Outpatient (RCR) | payer MEDICARE, OTHER ==
[~2021-08-05] MED LIST changes: +FURO80TA3 PO
== END | disposition home or self-care (01) ==
PROVIDERS: ATTEND Psychiatry & Neurology Neurology
DX: G62.9 Polyneuropathy, unspecified (principal); I10 Essential (primary) hypertension; E11.9 Type 2 diabetes mellitus without complications; K21.9 Gastro-esophageal reflux disease without esophagitis

== ENCOUNTER 2021-09-03 15:36 | Outpatient (RCR) | payer MEDICARE, OTHER | END 2021-09-04 | disposition home or self-care (01) | PROVIDERS: ATTEND Psychiatry & Neurology Neurology | DX: G62.9 Polyneuropathy, unspecified (principal); E11.9 Type 2 diabetes mellitus without complications; I11.9 Hypertensive heart disease without heart failure ==

== ENCOUNTER 2021-09-30 15:25 | Outpatient (RCR) | payer MEDICARE, OTHER | END 2021-10-05 | disposition home or self-care (01) | PROVIDERS: ATTEND Psychiatry & Neurology Neurology | DX: G62.9 Polyneuropathy, unspecified (principal); E11.9 Type 2 diabetes mellitus without complications; I11.9 Hypertensive heart disease without heart failure ==

== ENCOUNTER 2021-11-03 13:36 | Outpatient (RCR) | payer MEDICARE, OTHER | END 2021-11-04 | disposition home or self-care (01) | PROVIDERS: ATTEND Psychiatry & Neurology Neurology | DX: R29.898 Other symptoms and signs involving the musculoskeletal system (principal); I11.9 Hypertensive heart disease without heart failure; E11.42 Type 2 diabetes mellitus with diabetic polyneuropathy; K21.9 Gastro-esophageal reflux disease without esophagitis ==

== ENCOUNTER 2021-11-17 10:59 | Outpatient (RCR) | payer MEDICARE, OTHER | END 2021-12-05 | disposition home or self-care (01) | PROVIDERS: ATTEND Psychiatry & Neurology Neurology | DX: G62.9 Polyneuropathy, unspecified (principal); I11.9 Hypertensive heart disease without heart failure; E11.42 Type 2 diabetes mellitus with diabetic polyneuropathy; K21.9 Gastro-esophageal reflux disease without esophagitis ==

== ENCOUNTER → 2021-11-23 | Outpatient (CLI) | payer MEDICARE, OTHER ==
[~2021-11-23] VITALS: Ht 182 cm; Wt 104.0 kg
[~2021-11-23] MED LIST changes: +REGADENOSON 0.4 MG/5 ML SYR (LEXISCAN) IV ONE
[2021-11-23] MEDS: CATHETER FLUSH 10 ML SYR IVP PRN ×2 (07:40→09:25)
[2021-11-23 09:24] VITALS: BP 184/99
--- NOTE | 2021-11-24 13:12 | STRESS TEST ---
DATE OF SERVICE: 11/23/2021 RESTING AND POST REGADENOSON TECHNETIUM-99M TETROFOSMIN SPECT CT IMAGING ORDERING PHYSICIAN: Meghna Ricks APRN PRIMARY PHYSICIAN: Dr. Carty. CLINICAL DIAGNOSIS: Coronary artery disease. Baseline images were carried out after injection of 10.2 mCi of technetium-99m Tetrofosmin. This was followed by 0.4 mg regadenoson and 30.9 mCi of technetium-99m Tetrofosmin for stress imaging. The electrocardiogram showed sinus rhythm at baseline. It did not change significantly with the regadenoson infusion. Review of images at rest and following stress does not indicate any distinct perfusion defects consistent with significant myocardial ischemia or infarction. Gated images show normal global left ventricular systolic function with normal regional wall motion. Left ventricular ejection fraction is calculated to be 71%. CONCLUSIONS: 1. No evidence of any significant myocardial ischemia or infarction on this study. 2. Normal regional wall motion. 3. Normal global left ventricular systolic function with a calculated ejection fraction of 71%. Job ID: [id number] DocumentID: [id number] Dictated Date: 11/24/2021 09:40:40 Beer Merchant Date: 11/24/2021 13:12:29 Dictated By: BHUMI SHARMA MD, MA, FACP, FACC,
== END ==
LOC: CARD 07:20
PROVIDERS: ATTEND Nurse Practitioner Family
DX: I25.10 Atherosclerotic heart disease of native coronary artery without angina pectoris (principal)
CPT/HCPCS: 78452; 93017; A9502

== ENCOUNTER 2021-12-29 16:11 | Outpatient (RCR) | payer MEDICARE, OTHER ==
[~2021-12-29 16:11] MED LIST changes: -REGADENOSON 0.4 MG/5 ML SYR (LEXISCAN) IV ONE
== END 2022-01-05 | disposition home or self-care (01) ==
PROVIDERS: ATTEND Psychiatry & Neurology Neurology
DX: E11.42 Type 2 diabetes mellitus with diabetic polyneuropathy (principal); I11.9 Hypertensive heart disease without heart failure; R29.898 Other symptoms and signs involving the musculoskeletal system

== ENCOUNTER 2022-01-19 06:32 | Outpatient (CLI) | payer MEDICARE ==
[~2022-01-19] VITALS: Ht 182.9 cm; Wt 106.6 kg
[2022-01-19] MEDS ORDERED: GABA-486 PO (16:07)
[2022-01-19] MEDS ORDERED: HYDR-700 PO (16:07)
[2022-01-19] MEDS ORDERED: CARV25TA PO (16:07)
[2022-01-19] MEDS ORDERED: DOXA8TAB73 PO (16:07)
[2022-01-19] MEDS ORDERED: FURO80TA3 PO (16:07)
[2022-01-19] MEDS ORDERED: MAGN400C PO (16:07)
== END 2022-01-19 16:13 | disposition home or self-care (01) ==
LOC: PREOP 06:32
PROVIDERS: ATTEND Surgery
DX: Z01.818 Encounter for other preprocedural examination (principal)

== ENCOUNTER 2022-01-25 12:59 | Day surgery (SDC) | payer MEDICARE, OTHER ==
[~2022-01-25] VITALS: Ht 182.9 cm; Wt 106.6 kg
[2022-01-25] VITALS (7 sets, daily range): BP systolic 110–164; BP diastolic 57–86
[~2022-01-25 12:59] MED LIST changes: +CARV25TA PO; +DOXA8TAB73 PO; +HYDR-700 PO; +MAGN400C PO
[2022-01-25] MEDS ORDERED: LACTATED RINGERS 1,000 ML IV STA (13:07)
[2022-01-25] MEDS ORDERED: HURRICAINE EXT TUBE (BENZOCAINE) XX PRN (13:15)
[2022-01-25] MEDS ORDERED: LACTATED RINGERS 1,000 ML IV ONE ×2 (13:25→17:43)
--- NOTE | 2022-01-25 13:59 | Progress Note-Pre Operative ---
Pre-Operative Progress Note Date of Available H&P: Dec 17, 2021 Date H&P Reviewed: Jan 25, 2022 Time H&P Reviewed: 13:59 History & Physical: H&P Reviewed, Patient Examed, No changes noted Pre-Operative Diagnosis: History of polyps and GERD TAYLER CASTILLO DO Jan 25, 2022 13:59
[2022-01-25] MEDS ORDERED: PROPOFOL INJECTION 50 ML IV ONE ×2 (16:18→16:42)
[2022-01-25] MEDS ORDERED: MIDAZOLAM 2 MG/2 ML (VERSED) VIAL ONE (16:18)
--- NOTE | 2022-01-25 17:30 | Discharge Inst-Simple/Standard ---
Discharge Inst-Standard Patient Instructions/Follow Up Plan of Care/Instructions/FU: 2 WEEKS ANNA Activity as Tolerated: Yes Discharge Diet: Regular Diet TAYLER CASTILLO DO Jan 25, 2022 17:30
[2022-01-25] MEDS ORDERED: LACTATED RINGERS 1,000 ML IV SCH (18:00)
--- NOTE | 2022-01-25 18:13 | Anesthesia-General Post-Op ---
MAC Patient Condition Mental Status/LOC: Same as Preop Cardiovascular: Satisfactory Nausea/Vomiting: Absent Respiratory: Satisfactory Pain: Controlled Complications: Absent Post Op Complications Complications None Follow Up Care/Instructions Patient Instructions None needed. Anesthesiology Discharge Order Discharge Order Patient is doing well, no complaints, stable vital signs, no apparent adverse anesthesia problems. No complications reported per nursing. CARRIE KLINE CRNA Jan 25, 2022 18:13
--- NOTE | 2022-01-26 00:22 | OPERATIVE REPORT ---
DATE OF SERVICE: 01/25/2022 PREOPERATIVE DIAGNOSES: History of polyps, gastroesophageal reflux disease. POSTOPERATIVE DIAGNOSIS: Normal EGD, colon polyps. PROCEDURE: EGD with biopsy, colonoscopy with hot biopsy polypectomy x1 and snare polypectomy x5. SURGEON: Tayler Forbes DO ANESTHESIA: Per ADVERTISING CONSULTANT. ESTIMATED BLOOD LOSS: None. COMPLICATIONS: None. INDICATIONS: The patient is a 71-year-old male with history of polyps and GERD symptoms. He understands risks and benefits of procedure and wishes to proceed. Consent was signed in the chart. DESCRIPTION OF PROCEDURE: The patient was taken to the endoscopy suite, placed in left lateral recumbent position. Timeout was performed. Scope was inserted in mouth, down the esophagus, stomach and into the duodenum without difficulty. No polyps, masses or ulcerations within the duodenum. Scope was slowly retracted back to stomach where it was further insufflated. No polyps, masses or ulcerations. Biopsy of the antrum was obtained. Scope was retroflexed noting no other pathology. Scope was returned to its normal position, slowly withdrawn to distal esophagus. No polyps, masses or ulcerations. Biopsy of GE junction was obtained. Scope was slowly retracted back to completely remove, noting no pathology. Digital rectal exam was performed. No palpable polyps, masses or ulcerations. Scope was inserted in the rectum and advanced all the way to cecum with minimal difficulty. Prep was adequate. Scope was slowly retracted back to the cecum, a small polyp was present, which hot biopsy polypectomy was performed. Scope was then continuously retracted back. In the ascending colon, three larger polyps were present, which snare polypectomy was performed. Scope was then continuously retracted back of hepatic flexure, two more polyps were present, which snare polypectomies were performed. Scope was then slowly retracted back. No polyps, masses or ulcerations in the transverse, descending, sigmoid colon. Once in the rectum, scope was retroflexed noting no other pathology. Scope was returned to its normal position, slowly withdrawn until completely removed. The patient tolerated the procedure well without any complications, taken to recovery room in stable condition. RECOMMENDATIONS: The patient will need repeat colonoscopy in 5 years. Any issues before that be seen at that time. We will follow up on pathology in 2 weeks. We will not make any changes in medications until we were followup on EGD with biopsies. Job ID: [id number] DocumentID: [id number] Dictated Date: 01/25/2022 17:33:38 Manager Of Business Date: 01/26/2022 00:21:35 Dictated By: TAYLER FORBES DO
== END 2022-01-25 19:05 | disposition home or self-care (01) ==
LOC: ENDO 12:59
PROVIDERS: ATTEND Surgery
DX: Z12.11 Encounter for screening for malignant neoplasm of colon (principal); D12.2 Benign neoplasm of ascending colon; D12.3 Benign neoplasm of transverse colon; K63.5 Polyp of colon; K21.9 Gastro-esophageal reflux disease without esophagitis; G47.33 Obstructive sleep apnea (adult) (pediatric); Z87.891 Personal history of nicotine dependence; Z79.82 Long term (current) use of aspirin; Z95.5 Presence of coronary angioplasty implant and graft

== ENCOUNTER 2022-02-03 15:35 | Outpatient (RCR) | payer MEDICARE | END 2022-02-04 | disposition home or self-care (01) | PROVIDERS: ATTEND Psychiatry & Neurology Neurology | DX: E11.40 Type 2 diabetes mellitus with diabetic neuropathy, unspecified (principal); I10 Essential (primary) hypertension ==

== ENCOUNTER 2022-02-23 15:38 | Outpatient (RCR) | payer MEDICARE ==
[~2022-02-23 15:38] MED LIST changes: +ALBU8.5H6 IH; -RT-ALBUINH IH
== END 2022-03-07 | disposition home or self-care (01) ==
PROVIDERS: ATTEND Psychiatry & Neurology Neurology
DX: E11.40 Type 2 diabetes mellitus with diabetic neuropathy, unspecified (principal); I11.9 Hypertensive heart disease without heart failure

== ENCOUNTER 2022-03-30 15:34 | Outpatient (RCR) | payer MEDICARE | END 2022-04-06 | disposition home or self-care (01) | PROVIDERS: ATTEND Psychiatry & Neurology Neurology | DX: G62.9 Polyneuropathy, unspecified (principal); E11.40 Type 2 diabetes mellitus with diabetic neuropathy, unspecified; I11.9 Hypertensive heart disease without heart failure; R29.898 Other symptoms and signs involving the musculoskeletal system ==

== ENCOUNTER 2022-05-04 09:42 | Outpatient (RCR) | payer MEDICARE | END 2022-05-07 | disposition home or self-care (01) | PROVIDERS: ATTEND Psychiatry & Neurology Neurology | DX: G62.9 Polyneuropathy, unspecified (principal); E11.40 Type 2 diabetes mellitus with diabetic neuropathy, unspecified; I11.9 Hypertensive heart disease without heart failure; R29.898 Other symptoms and signs involving the musculoskeletal system ==

== ENCOUNTER 2022-05-24 15:35 | Outpatient (RCR) | payer MEDICARE | END 2022-06-07 | disposition home or self-care (01) | PROVIDERS: ATTEND Psychiatry & Neurology Neurology | DX: G62.9 Polyneuropathy, unspecified (principal); E11.40 Type 2 diabetes mellitus with diabetic neuropathy, unspecified; I11.9 Hypertensive heart disease without heart failure ==

== ENCOUNTER 2022-06-09 15:18 | Outpatient (RCR) | payer MEDICARE | END 2022-07-05 | disposition home or self-care (01) | PROVIDERS: ATTEND Psychiatry & Neurology Neurology | DX: R29.898 Other symptoms and signs involving the musculoskeletal system (principal); G62.9 Polyneuropathy, unspecified ==

== ENCOUNTER 2022-08-03 15:35 | Outpatient (RCR) | payer MEDICARE ==
[~2022-08-03 15:35] MED LIST changes: -INSU100I29 SQ; +INSU100I30 SQ
== END 2022-08-05 | disposition home or self-care (01) ==
PROVIDERS: ATTEND Psychiatry & Neurology Neurology
DX: R29.898 Other symptoms and signs involving the musculoskeletal system (principal); G62.9 Polyneuropathy, unspecified

== ENCOUNTER 2022-09-29 15:31 | Outpatient (RCR) | payer MEDICARE | END 2022-10-05 | disposition home or self-care (01) | PROVIDERS: ATTEND Psychiatry & Neurology Neurology | DX: R29.898 Other symptoms and signs involving the musculoskeletal system (principal); G62.9 Polyneuropathy, unspecified ==

== ENCOUNTER 2022-10-20 12:47 | Outpatient (RCR) | payer MEDICARE ==
[~2022-10-20 12:47] MED LIST changes: +POTA-330 PO; -POTA-51 PO
== END 2022-11-04 | disposition home or self-care (01) ==
PROVIDERS: ATTEND Psychiatry & Neurology Neurology
DX: G62.9 Polyneuropathy, unspecified (principal); I11.9 Hypertensive heart disease without heart failure; E11.9 Type 2 diabetes mellitus without complications; R29.898 Other symptoms and signs involving the musculoskeletal system

== ENCOUNTER 2022-11-16 15:50 | Outpatient (RCR) | payer MEDICARE | END 2022-12-05 | disposition home or self-care (01) | PROVIDERS: ATTEND Psychiatry & Neurology Neurology | DX: R29.898 Other symptoms and signs involving the musculoskeletal system (principal); G62.9 Polyneuropathy, unspecified ==

== ENCOUNTER 2022-12-21 13:07 | Outpatient (RCR) | payer MEDICARE | END 2023-01-05 | PROVIDERS: ATTEND Psychiatry & Neurology Neurology | DX: R29.898 Other symptoms and signs involving the musculoskeletal system (principal); E11.42 Type 2 diabetes mellitus with diabetic polyneuropathy; I10 Essential (primary) hypertension ==

== ENCOUNTER 2023-01-18 10:21 | Outpatient (RCR) | payer MEDICARE | END 2023-01-18 17:00 | disposition home or self-care (01) | PROVIDERS: ATTEND Psychiatry & Neurology Neurology | DX: R29.898 Other symptoms and signs involving the musculoskeletal system (principal); G62.9 Polyneuropathy, unspecified ==

== ENCOUNTER → 2023-02-28 | Outpatient (CLI) | payer MEDICARE ==
[~2023-02-28] MED LIST changes: -MECL-149 PO; +MECL-291 PO; -OXYB5TAB13 PO; +OXYB5TAB14 PO; -PREG50CA65 PO; +PREG50CA66 PO
== END ==
LOC: CARD 14:02
PROVIDERS: ATTEND Internal Medicine Cardiovascular Disease
DX: I51.7 Cardiomegaly (principal); E85.81 Light chain (AL) amyloidosis
CPT/HCPCS: 93306